=== PATIENT | male | born 1945 | race Caucasian/White ===

== ENCOUNTER 2016-12-19 05:27 | Inpatient (IN) | payer MEDICARE, OTHER ==
[2016-12-08 09:25] VITALS: BMI 39.0
--- NOTE | 2016-12-08 10:34 | PAT Medication Instructions ---
Service Date Dec 08, 2016. Current Home Medication List Albuterol Hfa (Ventolin Hfa), 1 PUFFS INH Q6H PRN for PRN Amlodipine (Norvasc), 5 MG PO QAM Aspirin (Aspirin *), 325 MG PO QAM Atorvastatin (Lipitor), 40 MG PO QPM Carvedilol (Coreg), 6.25 MG PO BID Fenofibrate (Tricor ), 145 MG PO QAM Fluticasone Propionate (Nasal) (Flonase Allergy Relief), 2 SPRAYS CRISTHIAN QAM Glipizide (Glipizide Er), 1 TAB PO QPM Lisinopril/Hctz (Zestoretic 20MG/25MG), 1 TAB PO QAM Metformin HCL (Glucophage *), 1,000 MG PO BID Pantoprazole (Protonix), 40 MG PO QAM Pseudoephedrine-Guaifenesin (Mucinex D), 1 TAB PO PRN Spironolactone (Aldactone), 25 MG PO QAM Tamsulosin Hcl (Flomax), 0.4 MG PO QAM [Azelestaline], 2 SPRAYS CRISTHIAN PRN Medication Instructions For Your Scheduled Surgery Aspirin (Aspirin *), 325 MG PO QAM (surgeon or Shauna from [facility] will call with final instructions) Fluticasone Propionate (Nasal) (Flonase Allergy Relief), 2 SPRAYS CRISTHIAN QAM ( check with surgeon's for office instructions) Azelestaline 2 SPRAYS CRISTHIAN PRN (check with surgeon's for office instructions) - Hold the following medications 48 hours prior to surgery: Metformin HCL (Glucophage *), 1,000 MG PO BID - Hold the following medications day prior to and morning of surgery: Fenofibrate (Tricor ), 145 MG PO QAM - Hold the following medications the morning of surgery: Spironolactone (Aldactone), 25 MG PO QAM Pseudoephedrine-Guaifenesin (Mucinex D), 1 TAB PO PRN Lisinopril/Hctz (Zestoretic 20MG/25MG), 1 TAB PO QAM - Take the following medications the morning of surgery with a sip of water: Tamsulosin Hcl (Flomax), 0.4 MG PO QAM Pantoprazole (Protonix), 40 MG PO QAM Carvedilol (Coreg), 6.25 MG PO BID Amlodipine (Norvasc), 5 MG PO QAM Albuterol Hfa (Ventolin Hfa), 1 PUFFS INH Q6H PRN for PRN (bring with you to hospital on day of surgery ) - Take the following medications as scheduled the night before surgery: Glipizide (Glipizide Er), 1 TAB PO QPM Carvedilol (Coreg), 6.25 MG PO BID Atorvastatin (Lipitor), 40 MG PO QPM Albuterol Hfa (Ventolin Hfa), 1 PUFFS INH Q6H PRN for PRN If you have any questions please call us at [phone] or [phone] ( Shauna) or [phone]
[2016-12-08 11:27] LABS: BASO % 0.6 %; BASO ABS # 0.06 K/uL (0-0.2); COMPLETE YES; EOS % 10.9 %; HEMATOCRIT 39.3 % (42-52); IG% 0.3 %; LYMPH % 22.6 %; LYMPH ABS # 2.16 K/uL (1.2-3.4); MEAN CELL VOLUME 89.3 fL (80-100); MEAN CORPUSCULAR HEMOGLOBIN 30.5 pg (25-34); MEAN CORPUSCULAR HGB CONC 34.1 g/dl (32-36); MEAN PLATELET VOLUME 10.6 fL (7.4-10.4); MONO % 6.7 %; NEUT % 58.9 %; PLATELET COUNT 170 K/uL (130-400); WHITE BLOOD COUNT 9.56 K/uL (4.8-10.8)
[2016-12-08 11:40] LABS: BUN/CREATININE RATIO 19.1 (10-20); CREATININE 1.1 mg/dl (0.60-1.40); POTASSIUM 4.6 mmol/L (3.5-5.1)
[~2016-12-19] VITALS: Ht 172.7 cm; Wt 117.2 kg
[2016-12-19] VITALS (14 sets, daily range): BP systolic 144–181; BP diastolic 78–102; PULSE 59–111; TEMP 36.4–36.8; O2SAT 94–98; Ht 172.7 cm; Wt 117.2 kg
[~2016-12-19 05:27] MED LIST: AMLO-110 PO; ASPEC325 PO; ATOR-24 PO; CARV6.25 PO; FENO145T26 PO; FLUT0.15 NAE; GLC500 PO; GLIP-199 PO; LISI-788 PO; PANT40TA PO; PSEU60TA80 PO; SPIR25TA PO; TAMS0.4C38 PO; VNTHFA/IN INH; [UNRECOGNIZED DRUG - OTHER] NAE
[2016-12-19] MEDS ORDERED: LACTATED RINGER'S 1000ML 1,000 ML IV SCH (06:00)
[2016-12-19] MEDS ORDERED: FENTANYL CITRATE INJ 50 MCG/1 ML 2 ML VIAL ONE ×2 (07:05→11:06)
[2016-12-19] MEDS ORDERED: MIDAZOLAM HCL 1 MG/ML 2ML VIAL ONE (07:05)
[2016-12-19] MEDS ORDERED: OXYMETAZOLINE HCL 0.05% NA SPR 15 ML BTL ONE ×2 (07:11→09:27)
[2016-12-19] MEDS ORDERED: LIDOCAINE/EPINEPHRINE 1% 20 ML VIAL ONE ×2 (07:11→08:34)
[2016-12-19] MEDS ORDERED: BACITRACIN 50000 UNIT VIAL ONE (07:12)
--- NOTE | 2016-12-19 07:29 | History & Physical Bridge Note ---
H&P Re-Evaluation Bridge Note: I have examined the patient, reviewed the History & Physical and in the interval since the performance of the History & Physical I have noted the following changes of clinical significance: No changes noted
[2016-12-19] MEDS ORDERED: SALINE NASAL GEL (AYR) 14.1 GM TUBE PRN (07:30)
[2016-12-19] MEDS ORDERED: CEFAZOLIN SOD 1 GM VIAL ONE (08:16)
[2016-12-19] MEDS ORDERED: LIDOCAINE HCL 2% 2 ML VIAL (20MG/ML) ONE (08:37)
[2016-12-19] MEDS ORDERED: ONDANSETRON INJ 2 MG/ML 2 ML VIAL ONE (08:37)
[2016-12-19] MEDS ORDERED: CISATRACURIUM BESYLATE IV SOLN 2 MG/ML 10 ML VIAL ONE (08:37)
[2016-12-19] MEDS ORDERED: GLYCOPYRROLATE INJ 0.2 MG/ML VIAL ONE (08:37)
[2016-12-19] MEDS ORDERED: PROPOFOL IV EMULSION 10 MG/ML 20 ML VIAL IV ONE (08:37)
[2016-12-19] MEDS ORDERED: LARYING-O-JET KIT (LTA) EXT ONE ×2 (08:37)
[2016-12-19] MEDS ORDERED: NEOSTIGMINE METHYLSULFATE 5 MG/5 ML SYR ONE (08:37)
[2016-12-19] MEDS ORDERED: DEXAMETHASONE SOD INJ 4 MG/ML VIAL ONE (08:37)
[2016-12-19] MEDS ORDERED: COCAINE 4% 1ML SYR EXT ONE (09:11)
[2016-12-19] MEDS ORDERED: LABETALOL HCL IV 5 MG/ML 20ML IV ONE (09:21)
[2016-12-19] MEDS: BACITRACIN OINT 15 GM TUBE ONE ×2 (09:53→10:21)
[2016-12-19] MEDS ORDERED: HydrALAZINE HCL 20 MG/ML VIAL ONE (10:39)
[2016-12-19] MEDS ORDERED: EpHEDrine SULFATE INJ 50 MG/ML AMP IV PRN (11:15)
[2016-12-19] MEDS ORDERED: LABETALOL HCL IV 5 MG/ML 20ML IV PRN (11:15)
[2016-12-19] MEDS ORDERED: ATROPINE SULFATE 0.1 MG/ML 5ML SYR IV PRN (11:15)
[2016-12-19] MEDS ORDERED: PROMETHAZINE HCL INJ 12.5 MG in SODIUM CHLORIDE 0.9% 50ML 50 ML IV PRN (11:15)
[2016-12-19] MEDS ORDERED: ONDANSETRON INJ 2 MG/ML 2 ML VIAL IV PRN ×2 (11:15→11:45)
[2016-12-19] MEDS ORDERED: FENTANYL CITRATE INJ 50 MCG/1 ML 2 ML VIAL IV PRN (11:15)
[2016-12-19] MEDS ORDERED: NALOXONE HCL 0.4 MG/1 ML VIAL/CARP IV PRN ×3 (11:15→16:15)
--- NOTE | 2016-12-19 11:23 | Anesthesiology Progress Note ---
Anesthesia Post Op Note Date & Time Dec 19, 2016 at 11:22 Vital Signs Pain Intensity: 4.0 Vital Signs Past 12 Hours Date Time Temp Pulse Resp B/P Pulse Ox O2 Delivery O2 Flow Rate FiO2 12/19/16 11:15 78 16 129/64 95 Free Flow/Blowby 15 12/19/16 11:05 80 16 131/70 95 Free Flow/Blowby 15 12/19/16 10:55 78 16 132/70 93 Free Flow/Blowby 15 12/19/16 10:45 75 16 138/72 93 Free Flow/Blowby 15 12/19/16 10:35 36.0 72 16 159/79 97 Mask 10 12/19/16 10:31 36.0 66 16 150/70 98 Mask 10 12/19/16 06:00 36.4 59 20 144/78 95 Room Air Notes Mental Status: alert / awake / arousable, participated in evaluation Pt Amnestic to Procedure: Yes Nausea / Vomiting: adequately controlled Pain: adequately controlled Airway Patency, RR, SpO2: stable & adequate BP & HR: stable & adequate Hydration State: stable & adequate Anesthetic Complications: no major complications apparent
[2016-12-19] MEDS ORDERED: GLUCAGON FOR INJ 1 MG VIAL SQ PRN (11:45)
[2016-12-19] MEDS ORDERED: MAGNESIUM HYDROXIDE SUSP 30 ML UDC PO PRN (11:45)
[2016-12-19] MEDS ORDERED: ACETAMINOPHEN 325 MG TAB PO PRN (11:45)
[2016-12-19] MEDS ORDERED: ZOLPIDEM TARTRATE 5 MG TAB PO PRN (11:45)
[2016-12-19] MEDS ORDERED: POLYETHYLENE (MIRALAX) 17 GM PACK PO PRN (11:45)
[2016-12-19] MEDS ORDERED: GLUCOSE 10 TABS/TUBE PO PRN (11:45)
[2016-12-19] MEDS ORDERED: ALBUTEROL HFA 8 GM INHALER INH PRN (11:45)
[2016-12-19] MEDS ORDERED: GLUCOSE 40% GEL 15 GM TUBE PO PRN (11:45)
[2016-12-19] MEDS ORDERED: CEFAZOLIN IV 2,000 MG/60 ML D5W IV SCH (11:45)
[2016-12-19] MEDS ORDERED: TRAMADOL HCL 50 MG TAB PO PRN (11:45)
[2016-12-19] MEDS ORDERED: DEXTROSE 50% 50 ML SYR IV PRN (11:45)
[2016-12-19] MEDS: HYDROmorphone INJ 1 MG/ML SYR IV PRN ×4 (12:00→12:15)
--- NOTE | 2016-12-19 12:49 | History and Physical ---
History & Physical Date & Time of Service: Dec 19, 2016 at 12:34 Chief Complaint: Chronic Pansinusitis; Deviated Nasal Septum Primary Care Physician: Julita Mittal DO History of Present Illness Source: hospital records This is a 71 year old M with PMH as mentioned below, was evaluated in the PACU post nasal and septoplasty with inferior turbinate reduction (bilateral), for admission request per Dr Huerta for post operative nasal bleeding. Patient had nasal bleeding post operatively- now under control with nasal packing by ENT. Vitals stable, BP 130s. Patient c/o pain at surgical site, rating it 7/10. Discomfort secondary to packing/post operative status. Denies any chest pain, fever, chills, nausea, vomiting, SOB. Will admit him under observation for close monitoring for post operative nasal bleeding. Past Medical/Surgical History PMH: 1. CAD with PCI Angioplasty RCA 2. DM-2 NIDDM 3. HTN 4. Hyperlipidemia 5. MAXIM 6. Hx of prostate carcinoma rx with brachytherapy 7. Kyphoscoliosis PSH: 1. Appendectomy 2. Cardiac cath 3. CAD- stent in proximal RCA 4. Multiple abdominal surgeries, lysis adhesions in 1970s 5. Knee arthroscopy 6. Shoulder cuff repair Social History Smoking Status: Former Smoker Allergies Coded Allergies: Clopidogrel (Verified Allergy, Intermediate, RASH, 12/19/16) Home Medications Scheduled Amlodipine (Norvasc), 5 MG PO QAM Aspirin (Aspirin *), 325 MG PO QAM Atorvastatin (Lipitor), 40 MG PO QPM Carvedilol (Coreg), 6.25 MG PO BID Fenofibrate (Tricor ), 145 MG PO QAM Fluticasone Propionate (Nasal) (Flonase Allergy Relief), 2 SPRAYS CRISTHIAN QAM Glipizide (Glipizide Er), 1 TAB PO QPM Lisinopril/Hctz (Zestoretic 20MG/25MG), 1 TAB PO QAM Metformin HCL (Glucophage *), 1,000 MG PO BID Pantoprazole (Protonix), 40 MG PO QAM Pseudoephedrine-Guaifenesin (Mucinex D), 1 TAB PO PRN Spironolactone (Aldactone), 25 MG PO QAM Tamsulosin Hcl (Flomax), 0.4 MG PO QAM [Azelestaline], 2 SPRAYS CRISTHIAN PRN Scheduled PRN Albuterol Hfa (Ventolin Hfa), 1 PUFFS INH Q6H PRN for PRN Review of Systems Constitutional: No chills, No fever Eyes: No worsening of vision ENT: + nasal symptoms (post operative nasal bleeding with packing), No hearing loss Respiratory: No cough, No shortness of breath, No sputum, No wheezing Cardiovascular: No chest pain, No palpitations Abdomen: No diarrhea, No nausea, No pain, No vomiting Genitourinary - Male: No hematuria Endocrine: + fatigue Integumentary: No rash Physical Exam Vital Signs Date Time Temp Pulse Resp B/P Pulse Ox O2 Delivery O2 Flow Rate FiO2 12/19/16 12:15 89 18 144/73 95 Free Flow/Blowby 15 12/19/16 12:05 86 18 127/82 95 Free Flow/Blowby 15 12/19/16 11:55 36.5 83 18 131/66 93 Free Flow/Blowby 15 12/19/16 11:45 86 20 129/75 93 Free Flow/Blowby 15 12/19/16 11:30 83 18 129/68 93 Free Flow/Blowby 15 12/19/16 11:15 78 16 129/64 95 Free Flow/Blowby 15 12/19/16 11:05 80 16 131/70 95 Free Flow/Blowby 15 12/19/16 10:55 78 16 132/70 93 Free Flow/Blowby 15 12/19/16 10:45 75 16 138/72 93 Free Flow/Blowby 15 12/19/16 10:35 36.0 72 16 159/79 97 Mask 10 12/19/16 10:31 36.0 66 16 150/70 98 Mask 10 12/19/16 06:00 36.4 59 20 144/78 95 Room Air General Appearance: + mild distress (secondary to nasal packing) Head: normocephalic, atraumatic Eyes: PERRL ENT: + pertinent finding (Nasal packing +, Bleeding ) Neck: supple Respiratory/Chest: chest non-tender, no respiratory distress, no accessory muscle use, + decreased breath sounds Cardiovascular: regular rate, rhythm, no murmur Abdomen/GI: non tender, soft Extremities/Musculoskelatal: no pedal edema Neurologic/Psych: + pertinent finding (grossly no focal deficits. Awake, oriented x 3) Diagnostics Laboratory Results Results Past 24 Hours Test 12/19/16 05:48 12/19/16 10:49 Range/Units Bedside Glucose 138 190 70-99 mg/dl Impression Assessment and Plan POST OPERATIVE NASAL BLEEDING S/P Nasal/Septoplasty/Bilateral inferior turbinate reduction by Dr Huerta today on 12/19/16. Had nasal bleeding post operatively - controlled now- nasal packing + -IV fluids (On spironolactone- held) -IV Cefazolin 2 gram q [address] Huerta -Pain mx- IV Dilaudid 1 mg q 3 hours prn for severe pain, Percocet 5/325 mg q 4 hours prn for moderate pain -Face tent per ENT instructions -CBC, BMP ordered- Monitor H & H -ENT on board HYPOXIA Post operative hypoxia with nasal bleeding/packing in setting of known MAXIM/ Kyphoscoliosis/Obesity -Monitor HYPERTENSION Stable. -Continue with home medications- Norvasc 5 mg daily, Carvedilol 6.25 mg BID, Lisinopril/HCTZ 20/25 mg daily -Monitor DM-2; NIDDM -Accuchecks, ISS -Hold oral meds HX OF CAD- WITH STENT -On ASA 325 mg at home which was on hold x 1 week prior to surgery- continue to hold due to surgery/bleeding -Continue with Atorvastatin 40 mg, Coreg 6.25 mg bid, Lisinopril 20 mg daily, Spironolactone - held as on IVF -No cardiac symptoms- stable OBESITY DVT PROPHYLAXIS SCDS/TEDS re: nasal bleeding DISPOSITION Observation status Expected discharge home when stable /per ENT Level of Care Med/Surg Resuscitation Status FULL RESUSCITATION VTE Prophylaxis VTE Risk Assessment Done? Y/N: Yes Risk Level: Low Given or contraindicated: T.E.D. Stockings, SCD's, Contraindicated (re: nasal bleeding.)
[2016-12-19] MEDS ORDERED: SODIUM CHLORIDE 0.9% 1000ML 1,000 ML IV SCH (13:00)
[2016-12-19] MEDS ORDERED: HYDROmorphone INJ 1 MG/ML SYR IV PRN (13:00)
[2016-12-19] MEDS ORDERED: IV FLUIDS COMPLETED PRN (14:00)
[2016-12-19] MEDS ORDERED: NURSING VERBAL MED ORDER ONE (14:45)
[2016-12-19] MEDS ORDERED: HydrALAZINE HCL 20 MG/ML VIAL IV. SCH (14:50)
--- NOTE | 2016-12-19 15:22 | Progress Note ---
Subjective Date of Service: Dec 19, 2016. Problem List Called to see patient for evaluation of nasal bleeding s/p nasal and sinus surgery. Patient had elevated BP at the time of the call and was in pain. By the time of my arrival, both were attended to. I interviewed the patient who reported decreased pain with Dilaudid. I also spoke with his nursing coming on and the departing nurse, his , and his son. Objective Vital Signs Date Time Temp Pulse Resp B/P Pulse Ox O2 Delivery O2 Flow Rate FiO2 12/19/16 14:20 101 24 174/94 96 Tent 11.0 12/19/16 13:50 98 24 169/91 95 Tent 11.0 12/19/16 13:00 96 18 142/77 93 Mask 10 12/19/16 12:45 91 18 141/77 96 Free Flow/Blowby 15 12/19/16 12:30 92 18 138/73 95 Free Flow/Blowby 15 12/19/16 12:15 89 18 144/73 95 Free Flow/Blowby 15 12/19/16 12:05 86 18 127/82 95 Free Flow/Blowby 15 12/19/16 11:55 36.5 83 18 131/66 93 Free Flow/Blowby 15 12/19/16 11:45 86 20 129/75 93 Free Flow/Blowby 15 12/19/16 11:30 83 18 129/68 93 Free Flow/Blowby 15 12/19/16 11:15 78 16 129/64 95 Free Flow/Blowby 15 12/19/16 11:05 80 16 131/70 95 Free Flow/Blowby 15 12/19/16 10:55 78 16 132/70 93 Free Flow/Blowby 15 12/19/16 10:45 75 16 138/72 93 Free Flow/Blowby 15 12/19/16 10:35 36.0 72 16 159/79 97 Mask 10 12/19/16 10:31 36.0 66 16 150/70 98 Mask 10 12/19/16 06:00 36.4 59 20 144/78 95 Room Air I cleaned his face and changed his mustache dressing. There was minimal to no bleeding. Laboratory Results Last 24 Hours Test 12/19/16 05:48 12/19/16 10:49 12/19/16 14:20 Bedside Glucose 138 mg/dl 190 mg/dl 174 mg/dl Assessment and Plan Patient stable. I spoke with the hospitalist, Dr. Sylvia Suarez, and provided her with my cell phone number. I also shared the importance of establishing RN PATIENT CARE to control discomfort which will be directly related to his BP. She shared that she would be happy to attend to this matter. I will be in early tomorrow morning to see this patient.
[2016-12-19] MEDS ORDERED: AMLODIPINE BESYLATE 5 MG TAB PO ONE ×2 (16:00→17:15)
--- NOTE | 2016-12-19 16:03 | OPERATIVE REPORT ---
DATE OF OPERATION: 12/19/2016 OPERATION PERFORMED: 1. Nasal and sinus surgical endoscopy using Fusion image guidance, resulting in: a. Bilateral anterior ethmoidectomy. b. Bilateral maxillary sinusotomy. 2. Septoplasty. 3. Bilateral inferior turbinate reduction. PREOPERATIVE DIAGNOSES: 1. Chronic sinusitis. 2. Severely deviated septum to the left side. 3. Bilateral inferior turbinate hypertrophy. POSTOPERATIVE DIAGNOSES: 1. Chronic sinusitis. 2. Bilateral inferior turbinate hypertrophy. 3. Severely deviated septum to the left side. SUMMARY OF FINDINGS: 1. Their is a concern that the patient didn't stop taking aspirin 325 mg once a day a week ago. For SURE, he oozed throughout the entire case. 2. Severely deviated septum to the left side. 3. Edematous ethmoid mucosa. 4. Bilateral inferior turbinate hypertrophy. SPECIMEN SENT: Mucosa from both ethmoid sinuses was sent for pathology. BLOOD LOSS: 250 mL. IV FLUIDS: 1000 of crystalloid. INDICATIONS FOR THE PROCEDURE: This is a 71-year-old man who had chronic sinusitis despite maximum medical management for several years. Given his smoking history, diabetes, history of cardiac stent, it was decided it would be best to perform his procedure in the hospital setting rather than a surgery center setting. A full informed consent including the indications, risks, benefits, and alternatives was provided in a relaxed office setting. There was an opportunity for questions and answers. Sponge and needle count was correct at the end of the case. COMPLICATIONS: None, OTHER THAN THE DIFFICULTY OF PERFORMING SURGERY IN A BLOODY FIELD PACKING: Left ethmoid defect had Nasopore placed and a 7.5 cm Rapid Rhino soaked in bacitracin solution and 2 Rhino Rockets were placed in the left side of the nose to stop bleeding. The right side of the nose had Stammberger gel placed in the ethmoid defect with a 7.5 cm Rapid Rhino and a Rhino Rocket placed in the right side of the nose. DESCRIPTION OF PROCEDURE: The patient had an uneventful endotracheal intubation and was placed in reverse Trendelenburg. The septum, inferior turbinates, middle turbinates, and anterior ethmoidal bulla were injected with 26 mL of 1% lidocaine in 1:100,000 parts epinephrine. The nose was then packed with 4 neurosurgical pledgets soaked in 4% cocaine and another 4 neurosurgical pledgets soaked in 0.05% oxymetazoline. About 5-7 minutes was then allowed for vasoconstriction as the patient was draped in a standard fashion and the equipment was ready. After waiting about 5-7 minutes, the packing in the nose was removed. A Warrington incision was made on the left side of the nose and a mucoperichondrial flap was elevated. +++++ IT IS IMPORTANT TO NOTE, THAT IMMEDIATELY FOLLOWING INCISION THERE WAS OOZING ON THE MUCOPERICHONDRIAL SIDE OF THE FLAP. THIS IS VERY UNUSUAL. The Quadrangular cartilage was disarticulated from the perpendicular plate of the ethmoid and the vomer. Additionally, a #15 blade was used to make an incision at the junction of the quadrangular cartilage with the maxillary crest. A small strip of cartilage attached to the maxillary crest was removed. After relaxing incisions were made in the quadrangular cartilage, it was now free to swing to the midline from its previously leftward deviation. There was a bony spur from the vomer, sticking in the left nasal airway, and this was infractured with a septal mobilizer. The septum was now straight. The Joaquin incision was closed with running 4-0 chromic suture. Eveline bivalve splints were placed, one on each side of the septum and held in place with a transseptal 2-0 silk suture. With the septoplasty complete, attention was then directed to the inferior turbinates. The lateral mucosa and bone was removed with the 4.3 mm Medtronic microdebrider. Lateral surface mucosa was also reduced in size using suction electrocautery. There was no Arthrocare Coblation device available, so I did not perform Arthrocare Coblation reduction. I just removed bone and subcutaneous tissue laterally. There was a nice reduction in the inferior turbinate size bilaterally. The remainder of the procedure was done interchangeably using a 30-degree endoscope along with surgical loops and headlight. The anterior portion of each middle turbinate was grasped with a curved tonsillar hemostat and compressed. Then turbinate scissors were used to cut on the crush line. Bleeding at the cut margin of the middle turbinate was stopped with suction electrocautery. The anterior ethmoidal bulla was entered with a straight suction tip and then anterior ethmoidectomy was done using the Medtronic 4.3 straight microdebrider. The represented mucosa was sent to pathology from the right and left ethmoidal sinus. Suction cautery was used to stop bleeding. The maxillary sinusotomies were created using curved suction tip to enter the maxillary sinus and also backbiting forceps to open the sinusotomy site. After controlling bleeding with suction electrocautery, the ethmoid defect on the left was packed with Nasopore; on the right with Stammberger foam. The left side of the nose had 2 Rhino Rockets saturated in bacitracin solution along with a 7.5 cm Rapid Rhino placed in the left side of the nose. In the right side of the nose, there was a 7.5 cm Rapid Rhino soaked in bacitracin solution along with a Rhino Rocket. This stopped all bleeding. Mustache dressing was positioned. I removed the vaginal pack soaked in saline that had been placed in the oropharynx at the start of the case to prevent blood going from the nose down to the stomach. I suctioned away all blood using saline and a Yankauer suction. I made sure there was no blood coming from the nose down to the oropharynx. Oral airway was placed. The patient was allowed to wake up on his own and following extubation, was transported to recovery in no apparent distress. I decided that given his diabetes, cardiac disease, long history of smoking, and oozing during surgery as well as labile hypertension in recovery, that it would be best to keep the patient overnight for several reasons. The reasons are: 1. Control of pain. 2. Control of his blood pressure. 3. Control of blood sugar. I think this is the safest move for this patient, and I will interface with the [facility].. I attest to the content of the Intraoperative Record and any orders documented therein. Any exceptions are noted below. JAIRO
[2016-12-19] MEDS: CEFAZOLIN SOD 2000 MG in DEXTROSE 5% 50ML IV SCH (16:08)
[2016-12-19 16:23] LABS: HEMATOCRIT 39.6 % (42-52); MEAN CELL VOLUME 89.8 fL (80-100); MEAN CORPUSCULAR HEMOGLOBIN 29.7 pg (25-34); MEAN CORPUSCULAR HGB CONC 33.1 g/dl (32-36); MEAN PLATELET VOLUME 10.2 fL (7.4-10.4); PLATELET COUNT 163 K/uL (130-400); RED BLOOD COUNT 4.41 M/uL (4.7-6.1); WHITE BLOOD COUNT 10.64 K/uL (4.8-10.8)
[2016-12-19 16:25] LABS: BUN/CREATININE RATIO 16.7 (10-20); CALCIUM 8.4 mg/dl (8.5-10.1); CREATININE 0.94 mg/dl (0.60-1.40); POTASSIUM 4.3 mmol/L (3.5-5.1)
[2016-12-19] MEDS: HYDROmorphone HCL 0.5MG/ML 50 ML CASSETTE IV PRN (16:49)
[2016-12-19] MEDS: SODIUM CHLORIDE 0.9% 1000ML 1,000 ML IV SCH (16:52)
[2016-12-19] MEDS: CARVEDILOL 6.25 MG TAB PO SCH (18:22)
[2016-12-19] MEDS: INSULIN ASPART 100 UNITS/ML 3 ML PEN SC SCH ×2 (18:26→21:58)
[2016-12-19] MEDS ORDERED: LABETALOL HCL IV 5 MG/ML 20ML IV SCH (19:45)
[2016-12-19] MEDS: ATORVASTATIN 40 MG TAB PO SCH (20:40)
--- NOTE | 2016-12-19 21:25 | Progress Note ---
Progress Note Date of Service Dec 19, 2016. Progress Note Patients' BP has been very difficult to control. His pain has been well controlled since starting IV Dialudid pump, however, difficult to control his BP. Has got IV Hydralazine 10 mg, IV Labetalol 10 mg, Norvasc 5 mg, Coreg 6.25 mg to achieve control Still has high BP---> Will start him on round the clock IV Metoprolol 5 mg q 6 hours till BP comes under control. Have given the sign out to night physician, Dr Flanagan. Goal < 140s
[2016-12-19] MEDS ORDERED: METOPROLOL TARTRATE 1 MG/ML VIAL IV. SCH (23:30)
[2016-12-20] VITALS (11 sets, daily range): BP systolic 153–174; BP diastolic 78–98; PULSE 83–111; TEMP 36.7–37.1; O2SAT 88–99
[2016-12-20] MEDS: CEFAZOLIN SOD 2000 MG in DEXTROSE 5% 50ML IV SCH ×2 (00:18→07:59)
[2016-12-20] MEDS: METOPROLOL TARTRATE 1 MG/ML VIAL IV. SCH ×3 (00:18→13:06)
[2016-12-20] MEDS: HydrALAZINE HCL 20 MG/ML VIAL IV. PRN (04:23)
[2016-12-20] MEDS: INSULIN ASPART 100 UNITS/ML 3 ML PEN SC SCH ×4 (07:00→20:53)
[2016-12-20 07:37] LABS: HEMATOCRIT 38.6 % (42-52); MEAN CELL VOLUME 91.5 fL (80-100); MEAN CORPUSCULAR HEMOGLOBIN 29.4 pg (25-34); MEAN CORPUSCULAR HGB CONC 32.1 g/dl (32-36); PLATELET COUNT 204 K/uL (130-400); RED BLOOD COUNT 4.22 M/uL (4.7-6.1); WHITE BLOOD COUNT 14.51 K/uL (4.8-10.8)
[2016-12-20] MEDS: PANTOprazole SOD 40 MG TAB PO SCH (07:45)
[2016-12-20] MEDS: AMLODIPINE BESYLATE 5 MG TAB PO SCH (07:45)
[2016-12-20] MEDS: TAMSULOSIN HCL 0.4 MG CAP PO SCH (07:46)
[2016-12-20] MEDS: LISINOPRIL/HCTZ 20/25MG TAB PO SCH (07:46)
[2016-12-20] MEDS: CARVEDILOL 6.25 MG TAB PO SCH ×2 (07:46→20:54)
[2016-12-20] MEDS: FENOFIBRATE 145 MG TAB PO SCH (07:46)
--- NOTE | 2016-12-20 07:47 | Progress Note ---
Subjective Date of Service: Dec 20, 2016. Problem List I spoke with Dr. Maite Suarez, and she shared that he was transferred to Telemetry last night to facilitate control of his labile hypertension. I saw the patient in room 242. I shared that this is a miserable experience, but that his pain is being controlled with the PULMONOLOGY TECHNICIAN. Objective Vital Signs Date Time Temp Pulse Resp B/P Pulse Ox O2 Delivery O2 Flow Rate FiO2 12/20/16 06:29 102 165/102 12/20/16 04:04 37.0 96 21 174/98 99 Tent 12/20/16 00:18 111 167/97 12/20/16 00:07 37.1 111 20 167/97 97 Tent 12/19/16 23:07 101 161/90 12/19/16 21:59 103 167/90 12/19/16 21:10 101 169/97 12/19/16 19:50 36.8 109 20 167/101 95 Tent 11.0 12/19/16 19:48 36.7 111 22 97 11.0 12/19/16 19:04 111 22 181/94 97 Tent 11.0 12/19/16 18:08 111 20 177/94 98 Tent 11.0 12/19/16 17:16 110 22 175/98 98 Tent 11.0 12/19/16 16:13 102 18 174/97 95 Oxyhood 11.0 12/19/16 16:00 94 Tent 11.0 12/19/16 15:20 36.7 106 20 167/102 97 Tent 11.0 12/19/16 14:20 101 24 174/94 96 Tent 11.0 12/19/16 13:50 98 24 169/91 95 Tent 11.0 12/19/16 13:20 36.6 101 20 164/ 96 Tent 11.0 12/19/16 13:20 Tent 12/19/16 13:20 96 Tent 11.0 12/19/16 13:00 96 18 142/77 93 Mask 10 12/19/16 12:45 91 18 141/77 96 Free Flow/Blowby 15 12/19/16 12:30 92 18 138/73 95 Free Flow/Blowby 15 12/19/16 12:15 89 18 144/73 95 Free Flow/Blowby 15 12/19/16 12:05 86 18 127/82 95 Free Flow/Blowby 15 12/19/16 11:55 36.5 83 18 131/66 93 Free Flow/Blowby 15 12/19/16 11:45 86 20 129/75 93 Free Flow/Blowby 15 12/19/16 11:30 83 18 129/68 93 Free Flow/Blowby 15 12/19/16 11:15 78 16 129/64 95 Free Flow/Blowby 15 12/19/16 11:05 80 16 131/70 95 Free Flow/Blowby 15 12/19/16 10:55 78 16 132/70 93 Free Flow/Blowby 15 12/19/16 10:45 75 16 138/72 93 Free Flow/Blowby 15 12/19/16 10:35 36.0 72 16 159/79 97 Mask 10 12/19/16 10:31 36.0 66 16 150/70 98 Mask 10 His BP remains above the 140/90 level safe for removal of his nasal packing. He had minimal oozing from his nares, but this was an acceptable amount. Laboratory Results Last 24 Hours Test 12/19/16 10:49 12/19/16 14:20 12/19/16 15:52 12/19/16 17:10 Bedside Glucose 190 mg/dl 174 mg/dl 191 mg/dl White Blood Count 10.64 K/uL Red Blood Count 4.41 M/uL Hemoglobin 13.1 g/dL Hematocrit 39.6 % Mean Corpuscular Volume 89.8 fL Mean Corpuscular Hemoglobin 29.7 pg Mean Corpuscular Hemoglobin Concent 33.1 g/dl RDW Standard Deviation 45.4 fL RDW Coefficient of Variation 13.8 % Platelet Count 163 K/uL Mean Platelet Volume 10.2 fL Sodium Level 141 mmol/L Potassium Level 4.3 mmol/L Chloride Level 105 mmol/L Carbon Dioxide Level 30 mmol/L Anion Gap 6.0 mmol/L Blood Urea Nitrogen 16 mg/dl Creatinine 0.94 mg/dl Est Creatinine Clear Calc Drug Dose 90.9 ml/min Estimated GFR () 94.8 Estimated GFR (Non- 81.8 BUN/Creatinine Ratio 16.7 Random Glucose 194 mg/dl Calcium Level 8.4 mg/dl Hepatitis C Antibody Screen NEG Test 12/19/16 20:34 4/26/17 07:05 12/20/16 07:35 Bedside Glucose 162 mg/dl White Blood Count 14.51 K/uL Red Blood Count 4.22 M/uL Hemoglobin 12.4 g/dL Hematocrit 38.6 % Mean Corpuscular Volume 91.5 fL Mean Corpuscular Hemoglobin 29.4 pg Mean Corpuscular Hemoglobin Concent 32.1 g/dl RDW Standard Deviation 45.9 fL RDW Coefficient of Variation 14.0 % Platelet Count 204 K/uL Mean Platelet Volume 10.0 fL Assessment and Plan This patient continues to have labile hypertension despite aggressive and appropriate intervention. He will most likely need to remain as an impatient until I remove his nasal packing early on Sunday morning, 12/22/18.
[2016-12-20 08:14] LABS: BUN/CREATININE RATIO 19.7 (10-20); CREATININE 1.1 mg/dl (0.60-1.40); POTASSIUM 4.3 mmol/L (3.5-5.1)
[2016-12-20 08:27] LABS: CALCIUM 8.1 mg/dl (8.5-10.1)
[2016-12-20] MEDS ORDERED: AMLODIPINE BESYLATE 5 MG TAB PO SCH (09:00)
[2016-12-20] MEDS ORDERED: SPIRONOLACTONE 25 MG TAB PO SCH (09:00)
--- NOTE | 2016-12-20 11:00 | Anesthesiology Progress Note ---
Anesthesia Post Op Note Date & Time Dec 20, 2016 at 10:58 Vital Signs Pain Intensity: 2.0 Vital Signs Past 12 Hours Date Time Temp Pulse Resp B/P Pulse Ox O2 Delivery O2 Flow Rate FiO2 12/20/16 08:10 36.9 89 20 154/91 91 Mask 10.0 12/20/16 08:00 Humidified Air Tent 12/20/16 06:29 102 165/102 12/20/16 04:04 37.0 96 21 174/98 99 Tent 12/20/16 00:18 111 167/97 12/20/16 00:07 37.1 111 20 167/97 97 Tent 12/19/16 23:07 101 161/90 Notes Mental Status: alert / awake / arousable, participated in evaluation Pt Amnestic to Procedure: Yes Nausea / Vomiting: adequately controlled Pain: adequately controlled Airway Patency, RR, SpO2: stable & adequate BP & HR: stable & adequate Hydration State: stable & adequate Anesthetic Complications: no major complications apparent
[2016-12-20] MEDS: MAGNESIUM SULFATE 1GM / D5W 1 GM in PREMIXED IN D5W 100 ML IV SCH ×4 (11:05→16:03)
[2016-12-20] MEDS ORDERED: NURSING VERBAL MED ORDER ONE (12:15)
[2016-12-20] MEDS ORDERED: ALBUT/IPRATROP 3MG/0.5MG NEB 3 ML VIAL INH PRN (12:30)
--- NOTE | 2016-12-20 14:11 | Progress Note ---
Medicine Progress Note Date & Time of Visit: Dec 20, 2016 at 13:52. Subjective Pt was seen and examined Lying in bed with no acute respiratory distress denies any chest pain, palpitation, dizziness and sob has not been eating anything today because he feels nauseated. he said that it is hard to breath through the mouth Objective Last 8 Hrs Date Time Temp Pulse Resp B/P Pulse Ox O2 Delivery O2 Flow Rate FiO2 12/20/16 13:06 89 12/20/16 12:05 Humidified Air Tent 12/20/16 11:55 89 159/86 12/20/16 11:17 36.7 89 20 161/82 90 Room Air 12/20/16 08:10 36.9 89 20 154/91 91 Mask 10.0 12/20/16 08:00 Humidified Air Tent 12/20/16 06:29 102 165/102 Physical Exam: General- No acute distress Head- atraumatic Eyes- PERRL, EOMI ENT- +nasal packing and blood Neck- supple, no JVD Lungs- Poor air entry Heart- regular rhythm; no murmur Abdomen- normal bowel sounds, soft Extremities-no calf tenderness Neuro- alert, oriented x 3; PERRL, EOMI Skin- warm & dry Laboratory Results: Last 24 Hours Test 12/19/16 14:20 12/19/16 15:52 12/19/16 17:10 12/19/16 20:34 Bedside Glucose 174 mg/dl 191 mg/dl 162 mg/dl White Blood Count 10.64 K/uL Red Blood Count 4.41 M/uL Hemoglobin 13.1 g/dL Hematocrit 39.6 % Mean Corpuscular Volume 89.8 fL Mean Corpuscular Hemoglobin 29.7 pg Mean Corpuscular Hemoglobin Concent 33.1 g/dl RDW Standard Deviation 45.4 fL RDW Coefficient of Variation 13.8 % Platelet Count 163 K/uL Mean Platelet Volume 10.2 fL Sodium Level 141 mmol/L Potassium Level 4.3 mmol/L Chloride Level 105 mmol/L Carbon Dioxide Level 30 mmol/L Anion Gap 6.0 mmol/L Blood Urea Nitrogen 16 mg/dl Creatinine 0.94 mg/dl Est Creatinine Clear Calc Drug Dose 90.9 ml/min Estimated GFR () 94.8 Estimated GFR (Non- 81.8 BUN/Creatinine Ratio 16.7 Random Glucose 194 mg/dl Calcium Level 8.4 mg/dl Hepatitis C Antibody Screen NEG Test 12/20/16 07:05 12/20/16 07:58 12/20/16 12:26 White Blood Count 14.51 K/uL Red Blood Count 4.22 M/uL Hemoglobin 12.4 g/dL Hematocrit 38.6 % Mean Corpuscular Volume 91.5 fL Mean Corpuscular Hemoglobin 29.4 pg Mean Corpuscular Hemoglobin Concent 32.1 g/dl RDW Standard Deviation 45.9 fL RDW Coefficient of Variation 14.0 % Platelet Count 204 K/uL Mean Platelet Volume 10.0 fL Sodium Level 141 mmol/L Potassium Level 4.3 mmol/L Chloride Level 104 mmol/L Carbon Dioxide Level 27 mmol/L Anion Gap 10.0 mmol/L Blood Urea Nitrogen 22 mg/dl Creatinine 1.10 mg/dl Est Creatinine Clear Calc Drug Dose 77.7 ml/min Estimated GFR () 78.4 Estimated GFR (Non- 67.7 BUN/Creatinine Ratio 19.7 Random Glucose 168 mg/dl Calcium Level 8.1 mg/dl Magnesium Level 1.2 mg/dl Prothrombin Time 11.0 SECONDS Prothromb Time International Ratio 1.0 Bedside Glucose 173 mg/dl Assessment & Plan POST OPERATIVE NASAL BLEEDING S/P Nasal/Septoplasty/Bilateral inferior turbinate reduction by Dr Huerta today on 12/19/16. Had nasal bleeding post operatively -IV Cefazolin 2 gram q 8 hours -Pain mx- IV Dilaudid 1 mg q 3 hours prn for severe pain, Percocet 5/325 mg q 4 hours prn for moderate pain -Face tent per ENT instructions -Hgb stable -Case discussed with Dr. Huerta that recommended to continue the nasal packing, -Dr. Huerta will possible removed the nasal packing on Sunday morning -Continue monitor h/h HYPOXIA Post operative hypoxia with nasal bleeding/packing in setting of known MAXIM/ Kyphoscoliosis/Obesity -Monitor HYPERTENSION -Might be related to discomfort from the nasal packing -Norvasc increased to 10mg daily, -Continue Carvedilol 6.25 mg BID, Lisinopril/HCTZ 20/25 mg daily -Monitor BP in telemetry HYPOMAGNESEMIA mg replaced continue monitor PVCs Seen on tele monitor mostly related to low mg (mg 1.2) Mg replaced Continue monitor in telemetry DM-2; NIDDM -Accuchecks, ISS -Hold oral meds HX OF CAD- WITH STENT -Continue holding asa 325 mg for now due to the bleeding -Continue with Atorvastatin 40 mg, Coreg 6.25 mg bid, Lisinopril 20 mg daily, Spironolactone - held as on IVF -Asymptomatic DVT PROPHYLAXIS SCDS/TEDS re: nasal bleeding DISPOSITION Expected discharge home when stable per ENT Consultants: ENT Procedures: S/P Nasal/Septoplasty/Bilateral inferior turbinate reduction Current Inpatient Medications: Current Inpatient Medications Medications (Trade) Dose Ordered Sig/Silvia Route Start Time Stop Time Status Last Admin Dose Admin Albuterol (Ventolin Hfa Inhaler) 1 puffs Q6H PRN INH 12/19/16 11:45 01/18/17 11:44 Atorvastatin Calcium (Lipitor Tab) 40 mg QPM PO 12/19/16 21:00 01/18/17 20:59 12/19/16 20:40 40 MG Carvedilol (Coreg Tab) 6.25 mg BID PO 12/19/16 21:00 01/18/17 20:59 12/20/16 07:46 6.25 MG Fenofibrate (Tricor Tab) 145 mg QAM PO 12/20/16 09:00 01/19/17 08:59 12/20/16 07:46 145 MG HCTZ/Lisinopril (Prinzide 20-25MG Tab) 1 tab QAM PO 12/20/16 09:00 01/19/17 08:59 12/20/16 07:46 1 TAB Pantoprazole Sodium (Protonix Tab) 40 mg QAM PO 12/20/16 09:00 01/19/17 08:59 12/20/16 07:45 40 MG Tamsulosin HCl (Flomax Cap) 0.4 mg QAM PO 12/20/16 09:00 01/19/17 08:59 12/20/16 07:46 0.4 MG Insulin Aspart (novoLOG ASPART) SLIDING SCALE If C... ACHS SC 12/19/16 16:00 01/18/17 15:59 12/19/16 21:58 1 UNITS Glucose (Glucose 40% Gel) 15-30 GRAMS 15 GRAMS... UD PRN PO 12/19/16 11:45 01/18/17 11:44 Glucose (Glucose Chew Tab) 4-8 Tablets 4 Tabl... UD PRN PO 12/19/16 11:45 01/18/17 11:44 Dextrose (Dextrose 50% 50ML Syringe) 25-50ML OF 50% DW IV FOR... UD PRN IV 12/19/16 11:45 01/18/17 11:44 Glucagon (Glucagon Inj) 1 mg UD PRN SQ 12/19/16 11:45 01/18/17 11:44 Acetaminophen (Tylenol Tab) 650 mg Q4H PRN PO 12/19/16 11:45 01/18/17 11:44 Magnesium Hydroxide (Milk Of Magnesia Susp) 30 ml Q6H PRN PO 12/19/16 11:45 01/18/17 11:44 Polyethylene (Miralax Powder Packet) 17 gm DAILY PRN PO 12/19/16 11:45 01/18/17 11:44 Ondansetron HCl (Zofran Inj) 4 mg Q6H PRN IV 12/19/16 11:45 01/18/17 11:44 Zolpidem Tartrate (Ambien Tab) 5 mg HSZ PRN PO 12/19/16 11:45 01/18/17 11:44 Tramadol HCl (Ultram Tab) 50 mg Q4H PRN PO 12/19/16 11:45 01/18/17 11:44 Oxycodone/ Acetaminophen (Percocet 5-325mg Tab) 1 tab Q4H PRN PO 12/19/16 13:00 01/02/17 12:59 Miscellaneous (Iv Fluids Completed) 1 ea PRN PRN N/A 12/19/16 14:00 12/19/17 13:59 Hydralazine HCl 10 mg 10 mg Q8H PRN IV. 12/19/16 14:15 01/18/17 14:14 12/20/16 04:23 10 MG Cefazolin Sodium/ Dextrose (Ancef Iv/D5 50ml) 60 ml @ 120 mls/hr Q8H IV 12/19/16 16:00 12/20/16 15:59 12/20/16 07:59 120 MLS/HR Amlodipine Besylate (Norvasc Tab) 10 mg QAM PO 12/20/16 09:00 01/19/17 08:59 12/20/16 07:45 10 MG Naloxone HCl (Narcan Inj) 0.1 mg Q5M PRN IV 12/19/16 16:15 01/18/17 16:14 Hydromorphone HCl 25 mg 25 mg PRN PRN IV 12/19/16 16:15 01/02/17 16:14 Future hold 12/19/16 16:49 25 MG Sodium Chloride (Nss 1000ml) 1,000 ml @ 15 mls/hr Q24H IV 12/19/16 16:07 01/18/17 16:06 Metoprolol Tartrate 5 mg 5 mg Q6 IV. 12/20/16 00:00 12/20/16 23:30 12/20/16 13:06 5 MG Magnesium Sulfate/ Prmx (Magnesium Sulfate/Premixed D5W) 100 ml @ 100 mls/hr 1100,1200,1300,1400 IV 12/20/16 11:00 12/20/16 14:59 12/20/16 13:04 100 MLS/HR Albuterol/ Ipratropium (Duoneb) 3 ml Q4H PRN INH 12/20/16 12:30 01/19/17 12:29
[2016-12-20] MEDS: SODIUM CHLORIDE 0.9% 1000ML 1,000 ML IV SCH (16:07)
[2016-12-20] MEDS: ATORVASTATIN 40 MG TAB PO SCH (21:17)
[2016-12-21] VITALS (11 sets, daily range): BP systolic 155–177; BP diastolic 75–93; PULSE 63–91; TEMP 36.6–37.1; O2SAT 90–93
[2016-12-21] MEDS: METOPROLOL TARTRATE 1 MG/ML VIAL IV PRN ×3 (00:37→19:28)
[2016-12-21] MEDS: HydrALAZINE HCL 20 MG/ML VIAL IV. PRN ×2 (02:35→21:54)
[2016-12-21] MEDS ORDERED: METOPROLOL TARTRATE 1 MG/ML VIAL IV ONE (04:00)
[2016-12-21 07:06] LABS: HEMATOCRIT 35.6 % (42-52); MEAN CELL VOLUME 91.8 fL (80-100); MEAN CORPUSCULAR HEMOGLOBIN 29.9 pg (25-34); MEAN CORPUSCULAR HGB CONC 32.6 g/dl (32-36); PLATELET COUNT 152 K/uL (130-400); RED BLOOD COUNT 3.88 M/uL (4.7-6.1); WHITE BLOOD COUNT 12.09 K/uL (4.8-10.8)
[2016-12-21 07:42] LABS: BUN/CREATININE RATIO 23.3 (10-20); CALCIUM 8.6 mg/dl (8.5-10.1); CREATININE 0.9 mg/dl (0.60-1.40); MAGNESIUM 2.1 mg/dl (1.8-2.4); POTASSIUM 4.3 mmol/L (3.5-5.1)
--- NOTE | 2016-12-21 08:46 | Progress Note ---
Subjective Date of Service: Dec 21, 2016. Problem List Occasional pain. Looking forward to going home tomorrow. Objective Vital Signs Date Time Temp Pulse Resp B/P Pulse Ox O2 Delivery O2 Flow Rate FiO2 12/21/16 07:51 37.1 85 24 162/75 91 Room Air 12/21/16 04:15 96 163/77 12/21/16 04:00 37.0 87 20 163/87 92 Tent 15.0 50 12/21/16 04:00 92 Tent 15.0 50 12/21/16 01:25 87 165/88 12/21/16 00:37 97 165/97 12/21/16 00:00 92 Tent 15.0 50 12/20/16 23:55 37.1 100 20 165/85 97 Mask 12/20/16 20:00 Humidified Air Tent 12/20/16 19:46 37.0 91 20 153/88 94 Tent 15.0 12/20/16 16:00 Humidified Air Tent 12/20/16 15:41 36.7 83 20 160/89 93 Tent 12/20/16 15:18 93 Humidified Oxygen 11.0 Tent 12/20/16 15:00 88 Room Air 12/20/16 14:26 86 162/78 12/20/16 13:06 89 12/20/16 12:05 Humidified Air Tent 12/20/16 11:55 89 159/86 12/20/16 11:17 36.7 89 20 161/82 90 Room Air Minimal oozing from the nose. Laboratory Results Last 24 Hours Test 12/20/16 12:26 12/20/16 16:21 12/20/16 20:24 12/21/16 06:31 Bedside Glucose 173 mg/dl 155 mg/dl 138 mg/dl 170 mg/dl Test 12/21/16 06:32 White Blood Count 12.09 K/uL Red Blood Count 3.88 M/uL Hemoglobin 11.6 g/dL Hematocrit 35.6 % Mean Corpuscular Volume 91.8 fL Mean Corpuscular Hemoglobin 29.9 pg Mean Corpuscular Hemoglobin Concent 32.6 g/dl RDW Standard Deviation 47.1 fL RDW Coefficient of Variation 14.0 % Platelet Count 152 K/uL Mean Platelet Volume 10.0 fL Sodium Level 139 mmol/L Potassium Level 4.3 mmol/L Chloride Level 103 mmol/L Carbon Dioxide Level 32 mmol/L Anion Gap 4.0 mmol/L Blood Urea Nitrogen 21 mg/dl Creatinine 0.90 mg/dl Est Creatinine Clear Calc Drug Dose 95.0 ml/min Estimated GFR () 99.9 Estimated GFR (Non- 86.2 BUN/Creatinine Ratio 23.3 Random Glucose 157 mg/dl Calcium Level 8.6 mg/dl Magnesium Level 2.1 mg/dl Assessment and Plan Blood pressure should be around 140/90 to safely remove the nasal packing tomorrow. I will speak with Dr. Goncalves.
[2016-12-21] MEDS: PANTOprazole SOD 40 MG TAB PO SCH (08:55)
[2016-12-21] MEDS: OXYCODONE/ACETAMINOPHEN 5-325 TAB PO PRN ×2 (08:55→19:23)
[2016-12-21] MEDS: LISINOPRIL/HCTZ 20/25MG TAB PO SCH (08:56)
[2016-12-21] MEDS: TAMSULOSIN HCL 0.4 MG CAP PO SCH (08:56)
[2016-12-21] MEDS: AMLODIPINE BESYLATE 5 MG TAB PO SCH (08:56)
[2016-12-21] MEDS: FENOFIBRATE 145 MG TAB PO SCH (08:57)
[2016-12-21] MEDS: INSULIN ASPART 100 UNITS/ML 3 ML PEN SC SCH ×4 (09:03→20:39)
[2016-12-21] MEDS: CARVEDILOL 6.25 MG TAB PO SCH ×2 (11:46→20:33)
--- NOTE | 2016-12-21 18:27 | Progress Note ---
Medicine Progress Note Date & Time of Visit: Dec 21, 2016 at 18:21. Subjective Pt was seen and examined Sitting in bed with no acute respiratory distress denies any chest pain, palpitation, dizziness and sob Objective Last 8 Hrs Date Time Temp Pulse Resp B/P Pulse Ox O2 Delivery O2 Flow Rate FiO2 12/21/16 16:00 Room Air 12/21/16 15:10 36.6 82 18 163/79 90 Room Air 12/21/16 14:45 91 18 155/81 12/21/16 13:27 80 12/21/16 12:09 Room Air 12/21/16 11:51 36.9 81 18 164/79 92 Room Air Physical Exam: General- No acute distress Head- atraumatic Eyes- PERRL, EOMI ENT- +nasal packing and blood Neck- supple, no JVD Lungs- Poor air entry Heart- regular rhythm; no murmur Abdomen- normal bowel sounds, soft Extremities-no calf tenderness Neuro- alert, oriented x 3; PERRL, EOMI Skin- warm & dry Laboratory Results: Last 24 Hours Test 12/20/16 20:24 12/21/16 06:31 12/21/16 06:32 12/21/16 11:33 Bedside Glucose 138 mg/dl 170 mg/dl 150 mg/dl White Blood Count 12.09 K/uL Red Blood Count 3.88 M/uL Hemoglobin 11.6 g/dL Hematocrit 35.6 % Mean Corpuscular Volume 91.8 fL Mean Corpuscular Hemoglobin 29.9 pg Mean Corpuscular Hemoglobin Concent 32.6 g/dl RDW Standard Deviation 47.1 fL RDW Coefficient of Variation 14.0 % Platelet Count 152 K/uL Mean Platelet Volume 10.0 fL Sodium Level 139 mmol/L Potassium Level 4.3 mmol/L Chloride Level 103 mmol/L Carbon Dioxide Level 32 mmol/L Anion Gap 4.0 mmol/L Blood Urea Nitrogen 21 mg/dl Creatinine 0.90 mg/dl Est Creatinine Clear Calc Drug Dose 95.0 ml/min Estimated GFR () 99.9 Estimated GFR (Non- 86.2 BUN/Creatinine Ratio 23.3 Random Glucose 157 mg/dl Calcium Level 8.6 mg/dl Magnesium Level 2.1 mg/dl Test 12/21/16 16:37 Bedside Glucose 146 mg/dl Assessment & Plan POST OPERATIVE NASAL BLEEDING S/P Nasal/Septoplasty/Bilateral inferior turbinate reduction by Dr Huerta today on 12/19/16. Had nasal bleeding post operatively -IV Cefazolin 2 gram q 8 hours -Pain mx- IV Dilaudid 1 mg q 3 hours prn for severe pain, Percocet 5/325 mg q 4 hours prn for moderate pain -Face tent per ENT instructions -Hgb 11.6 -Case discussed with Dr. Huerta that recommended to continue the nasal packing, -Nasal packing might be removed tomorrow by Dr. Huerta -BP needs be below 140/90 for the nasal packing to remove -Continue monitor h/h HYPOXIA Post operative hypoxia with nasal bleeding/packing in setting of known MAXIM/ Kyphoscoliosis/Obesity -Monitor HYPERTENSION -Might be related to discomfort from the nasal packing -Norvasc increased to 10mg daily, -Continue Carvedilol 6.25 mg BID, Lisinopril/HCTZ 20/25 mg daily -Will try labetalol PRN for SBP above 165 -Monitor BP in telemetry HYPOMAGNESEMIA Mg 2.1 stable continue monitor PVCs Seen on tele monitor mostly related to low mg (mg 1.2) Continue monitor in telemetry DM-2; NIDDM -Accuchecks, ISS -Hold oral meds HX OF CAD- WITH STENT -Continue holding asa 325 mg for now due to the bleeding -Continue with Atorvastatin 40 mg, Coreg 6.25 mg bid, Lisinopril 20 mg daily, Spironolactone - held as on IVF -Asymptomatic DVT PROPHYLAXIS SCDS/TEDS re: nasal bleeding DISPOSITION Expected discharge home when stable per ENT Consultants: ENT Procedures: S/P Nasal/Septoplasty/Bilateral inferior turbinate reduction Current Inpatient Medications: Current Inpatient Medications Medications (Trade) Dose Ordered Sig/Silvia Route Start Time Stop Time Status Last Admin Dose Admin Albuterol (Ventolin Hfa Inhaler) 1 puffs Q6H PRN INH 12/19/16 11:45 01/18/17 11:44 Atorvastatin Calcium (Lipitor Tab) 40 mg QPM PO 12/19/16 21:00 01/18/17 20:59 12/20/16 21:17 40 MG Carvedilol (Coreg Tab) 6.25 mg BID PO 12/19/16 21:00 01/18/17 20:59 12/21/16 11:46 6.25 MG Fenofibrate (Tricor Tab) 145 mg QAM PO 12/20/16 09:00 01/19/17 08:59 12/21/16 08:57 145 MG HCTZ/Lisinopril (Prinzide 20-25MG Tab) 1 tab QAM PO 12/20/16 09:00 01/19/17 08:59 12/21/16 08:56 1 TAB Pantoprazole Sodium (Protonix Tab) 40 mg QAM PO 12/20/16 09:00 01/19/17 08:59 12/21/16 08:55 40 MG Tamsulosin HCl (Flomax Cap) 0.4 mg QAM PO 12/20/16 09:00 01/19/17 08:59 12/21/16 08:56 0.4 MG Insulin Aspart (novoLOG ASPART) SLIDING SCALE If C... ACHS SC 12/19/16 16:00 01/18/17 15:59 12/21/16 17:55 5 UNITS Glucose (Glucose 40% Gel) 15-30 GRAMS 15 GRAMS... UD PRN PO 12/19/16 11:45 01/18/17 11:44 Glucose (Glucose Chew Tab) 4-8 Tablets 4 Tabl... UD PRN PO 12/19/16 11:45 01/18/17 11:44 Dextrose (Dextrose 50% 50ML Syringe) 25-50ML OF 50% DW IV FOR... UD PRN IV 12/19/16 11:45 01/18/17 11:44 Glucagon (Glucagon Inj) 1 mg UD PRN SQ 12/19/16 11:45 01/18/17 11:44 Acetaminophen (Tylenol Tab) 650 mg Q4H PRN PO 12/19/16 11:45 01/18/17 11:44 Magnesium Hydroxide (Milk Of Magnesia Susp) 30 ml Q6H PRN PO 12/19/16 11:45 01/18/17 11:44 Polyethylene (Miralax Powder Packet) 17 gm DAILY PRN PO 12/19/16 11:45 01/18/17 11:44 Ondansetron HCl (Zofran Inj) 4 mg Q6H PRN IV 12/19/16 11:45 01/18/17 11:44 Zolpidem Tartrate (Ambien Tab) 5 mg HSZ PRN PO 12/19/16 11:45 01/18/17 11:44 Tramadol HCl (Ultram Tab) 50 mg Q4H PRN PO 12/19/16 11:45 01/18/17 11:44 Oxycodone/ Acetaminophen (Percocet 5-325mg Tab) 1 tab Q4H PRN PO 12/19/16 13:00 01/02/17 12:59 12/21/16 08:55 1 TAB Miscellaneous (Iv Fluids Completed) 1 ea PRN PRN N/A 12/19/16 14:00 12/19/17 13:59 Hydralazine HCl (HydrALAZINE INJ) 10 mg Q8H PRN IV. 12/19/16 14:15 01/18/17 14:14 12/21/16 02:35 10 MG Amlodipine Besylate (Norvasc Tab) 10 mg QAM PO 12/20/16 09:00 01/19/17 08:59 12/21/16 08:56 10 MG Naloxone HCl (Narcan Inj) 0.1 mg Q5M PRN IV 12/19/16 16:15 01/18/17 16:14 Hydromorphone HCl 25 mg 25 mg PRN PRN IV 12/19/16 16:15 01/02/17 16:14 Future hold 12/19/16 16:49 25 MG Sodium Chloride (Nss 1000ml) 1,000 ml @ 15 mls/hr Q24H IV 12/19/16 16:07 01/18/17 16:06 12/20/16 16:07 15 MLS/HR Albuterol/ Ipratropium (Duoneb) 3 ml Q4H PRN INH 12/20/16 12:30 01/19/17 12:29 Metoprolol Tartrate (Lopressor Iv) 5 mg Q6 PRN IV 12/20/16 18:00 01/19/17 17:59 12/21/16 13:27 5 MG
[2016-12-21] MEDS: ATORVASTATIN 40 MG TAB PO SCH (20:33)
[2016-12-22] VITALS (9 sets, daily range): BP systolic 147–183; BP diastolic 75–93; PULSE 73–88; TEMP 36.6–37; O2SAT 92–94
[2016-12-22] MEDS: HYDROmorphone HCL 0.5MG/ML 50 ML CASSETTE IV PRN (00:26)
[2016-12-22] MEDS: METOPROLOL TARTRATE 1 MG/ML VIAL IV PRN (03:33)
[2016-12-22] MEDS: OXYCODONE/ACETAMINOPHEN 5-325 TAB PO PRN (06:15)
[2016-12-22 06:44] LABS: HEMATOCRIT 34.7 % (42-52); MEAN CELL VOLUME 90.6 fL (80-100); MEAN CORPUSCULAR HEMOGLOBIN 30.5 pg (25-34); MEAN CORPUSCULAR HGB CONC 33.7 g/dl (32-36); MEAN PLATELET VOLUME 10.1 fL (7.4-10.4); PLATELET COUNT 150 K/uL (130-400); RED BLOOD COUNT 3.83 M/uL (4.7-6.1); WHITE BLOOD COUNT 10.77 K/uL (4.8-10.8)
[2016-12-22] MEDS: INSULIN ASPART 100 UNITS/ML 3 ML PEN SC SCH ×2 (07:00→11:00)
[2016-12-22] MEDS ORDERED: LABETALOL HCL IV 5 MG/ML 20ML IV ONE ×3 (07:30→12:45)
--- NOTE | 2016-12-22 08:40 | Progress Note ---
Subjective Date of Service: Dec 22, 2016. Problem List Eager to go home. No significant bleeding. Objective Vital Signs Date Time Temp Pulse Resp B/P Pulse Ox O2 Delivery O2 Flow Rate FiO2 12/22/16 07:30 36.6 88 18 183/75 92 Room Air 12/22/16 05:18 88 160/93 12/22/16 04:00 Room Air 12/22/16 03:34 37.0 88 20 165/82 92 Room Air 12/22/16 03:33 88 165/82 12/22/16 00:01 Room Air 12/21/16 23:10 36.9 86 18 160/88 91 Room Air 12/21/16 21:35 89 18 168/77 90 Room Air 12/21/16 20:31 91 19 174/82 90 Room Air 12/21/16 19:28 84 177/93 12/21/16 19:24 Room Air 12/21/16 19:05 37.0 63 20 177/93 93 Room Air 12/21/16 16:00 Room Air 12/21/16 15:10 36.6 82 18 163/79 90 Room Air 12/21/16 14:45 91 18 155/81 12/21/16 13:27 80 12/21/16 12:09 Room Air 12/21/16 11:51 36.9 81 18 164/79 92 Room Air Although his BP is still higher than I would prefer, I decided to remove his intranasal packing. My thinking was that it may be causing enough discomfort to raise his BP. He had minimal oozing which stopped within minutes following removal of his packing. Mustache dressing was placed. Laboratory Results Last 24 Hours Test 12/21/16 11:33 12/21/16 16:37 12/21/16 20:02 12/21/16 20:38 Bedside Glucose 150 mg/dl 146 mg/dl 140 mg/dl 137 mg/dl Test 12/22/16 06:12 12/22/16 06:59 White Blood Count 10.77 K/uL Red Blood Count 3.83 M/uL Hemoglobin 11.7 g/dL Hematocrit 34.7 % Mean Corpuscular Volume 90.6 fL Mean Corpuscular Hemoglobin 30.5 pg Mean Corpuscular Hemoglobin Concent 33.7 g/dl RDW Standard Deviation 45.5 fL RDW Coefficient of Variation 13.7 % Platelet Count 150 K/uL Mean Platelet Volume 10.1 fL Magnesium Level 1.7 mg/dl Bedside Glucose 152 mg/dl Assessment and Plan He tolerated packing removing very well. Full post-op care instructions were discussed with his , Ludmila. I also discussed the plan with Dr. Sharon Goncalves. He should follow-up in my office on , 12/28/16.
[2016-12-22] MEDS: TAMSULOSIN HCL 0.4 MG CAP PO SCH (08:53)
[2016-12-22] MEDS: FENOFIBRATE 145 MG TAB PO SCH (08:53)
[2016-12-22] MEDS: LISINOPRIL/HCTZ 20/25MG TAB PO SCH (08:54)
[2016-12-22] MEDS: PANTOprazole SOD 40 MG TAB PO SCH (08:54)
[2016-12-22] MEDS: AMLODIPINE BESYLATE 5 MG TAB PO SCH (08:54)
[2016-12-22] MEDS: CARVEDILOL 6.25 MG TAB PO SCH (08:54)
--- NOTE | 2016-12-22 13:21 | Progress Note ---
Medicine Progress Note Date & Time of Visit: Dec 22, 2016 at 13:07. Subjective Pt was seen and examined Lying in bed with no distress with and son at bedside Dr. Huerta removed the nasal packing this morning very anxious to go home denies any chest pain, palpitation, dizziness and sob Objective Last 8 Hrs Date Time Temp Pulse Resp B/P Pulse Ox O2 Delivery O2 Flow Rate FiO2 12/22/16 12:30 147/80 12/22/16 12:00 Room Air 12/22/16 11:51 36.7 76 18 157/79 93 Room Air 12/22/16 11:44 36.8 73 20 147/80 92 Room Air 12/22/16 09:53 85 163/89 12/22/16 08:00 Room Air 12/22/16 07:30 36.6 88 18 183/75 92 Room Air 12/22/16 05:18 88 160/93 Physical Exam: General- No acute distress Head- atraumatic Eyes- PERRL, EOMI ENT- mustache dressing placed Neck- supple, no JVD Lungs- Poor air entry Heart- regular rhythm; no murmur Abdomen- normal bowel sounds, soft Extremities-no calf tenderness Neuro- alert, oriented x 3; PERRL, EOMI Skin- warm & dry Laboratory Results: Last 24 Hours Test 12/21/16 16:37 12/21/16 20:02 12/21/16 20:38 12/22/16 06:12 Bedside Glucose 146 mg/dl 140 mg/dl 137 mg/dl White Blood Count 10.77 K/uL Red Blood Count 3.83 M/uL Hemoglobin 11.7 g/dL Hematocrit 34.7 % Mean Corpuscular Volume 90.6 fL Mean Corpuscular Hemoglobin 30.5 pg Mean Corpuscular Hemoglobin Concent 33.7 g/dl RDW Standard Deviation 45.5 fL RDW Coefficient of Variation 13.7 % Platelet Count 150 K/uL Mean Platelet Volume 10.1 fL Magnesium Level 1.7 mg/dl Test 12/22/16 06:59 Bedside Glucose 152 mg/dl Assessment & Plan POST OPERATIVE NASAL BLEEDING S/P Nasal/Septoplasty/Bilateral inferior turbinate reduction by Dr Huerta on . Had nasal bleeding post operatively -IV Cefazolin 2 gram q 8 hours -Pain mx- IV Dilaudid 1 mg q 3 hours prn for severe pain, Percocet 5/325 mg q 4 hours prn for moderate pain -Face tent per ENT instructions -Hgb 11.7 - Nasal packing removed today by Dr. Huerta - Case discussed with Dr. Huerta - Will continue monitor pt until the afternoon - as per Dr. Huerta if no bleeding, ok to discharge home later - Dr. Huerta discussed full post-op care instructions with his , Ludmila - Pt already had a follow-up appt my with Dr. Huerta on , 12/28/16. - Will discharge with pain med. HYPOXIA Post operative hypoxia with nasal bleeding/packing in setting of known MAXIM/ Kyphoscoliosis/Obesity -Stable HYPERTENSION -Might be related to discomfort from the nasal packing and hospital setting -Norvasc increased to 10mg daily, -Continue Carvedilol 6.25 mg BID, Lisinopril/HCTZ 20/25 mg daily -he has a follow up appt with Cardiology on December 25 - continue monitor BP HYPOMAGNESEMIA Mg 1.7 today Mg replaced continue monitor PVCs Seen on tele monitor mostly related to low mg (mg 1.2) stable DM-2; NIDDM -Accuchecks, ISS -Hold oral meds HX OF CAD- WITH STENT -Continue holding asa 325 mg for now due to the bleeding -Continue with Atorvastatin 40 mg, Coreg 6.25 mg bid, Lisinopril 20 mg daily, Spironolactone - held as on IVF -Asymptomatic DVT PROPHYLAXIS SCDS/TEDS re: nasal bleeding DISPOSITION Expected discharge home today Consultants: ENT Procedures: S/P Nasal/Septoplasty/Bilateral inferior turbinate reduction Current Inpatient Medications: Current Inpatient Medications Medications (Trade) Dose Ordered Sig/Silvia Route Start Time Stop Time Status Last Admin Dose Admin Albuterol (Ventolin Hfa Inhaler) 1 puffs Q6H PRN INH 12/19/16 11:45 01/18/17 11:44 Atorvastatin Calcium (Lipitor Tab) 40 mg QPM PO 12/19/16 21:00 01/18/17 20:59 12/21/16 20:33 40 MG Carvedilol (Coreg Tab) 6.25 mg BID PO 12/19/16 21:00 01/18/17 20:59 12/22/16 08:54 6.25 MG Fenofibrate (Tricor Tab) 145 mg QAM PO 12/20/16 09:00 01/19/17 08:59 12/22/16 08:53 145 MG HCTZ/Lisinopril (Prinzide 20-25MG Tab) 1 tab QAM PO 12/20/16 09:00 01/19/17 08:59 12/22/16 08:54 1 TAB Pantoprazole Sodium (Protonix Tab) 40 mg QAM PO 12/20/16 09:00 01/19/17 08:59 12/22/16 08:54 40 MG Tamsulosin HCl (Flomax Cap) 0.4 mg QAM PO 12/20/16 09:00 01/19/17 08:59 12/22/16 08:53 0.4 MG Insulin Aspart (novoLOG ASPART) SLIDING SCALE If C... ACHS SC 12/19/16 16:00 01/18/17 15:59 12/21/16 17:55 5 UNITS Glucose (Glucose 40% Gel) 15-30 GRAMS 15 GRAMS... UD PRN PO 12/19/16 11:45 01/18/17 11:44 Glucose (Glucose Chew Tab) 4-8 Tablets 4 Tabl... UD PRN PO 12/19/16 11:45 01/18/17 11:44 Dextrose (Dextrose 50% 50ML Syringe) 25-50ML OF 50% DW IV FOR... UD PRN IV 12/19/16 11:45 01/18/17 11:44 Glucagon (Glucagon Inj) 1 mg UD PRN SQ 12/19/16 11:45 01/18/17 11:44 Acetaminophen (Tylenol Tab) 650 mg Q4H PRN PO 12/19/16 11:45 01/18/17 11:44 Magnesium Hydroxide (Milk Of Magnesia Susp) 30 ml Q6H PRN PO 12/19/16 11:45 01/18/17 11:44 Polyethylene (Miralax Powder Packet) 17 gm DAILY PRN PO 12/19/16 11:45 01/18/17 11:44 Ondansetron HCl (Zofran Inj) 4 mg Q6H PRN IV 12/19/16 11:45 01/18/17 11:44 Zolpidem Tartrate (Ambien Tab) 5 mg HSZ PRN PO 12/19/16 11:45 01/18/17 11:44 Tramadol HCl (Ultram Tab) 50 mg Q4H PRN PO 12/19/16 11:45 01/18/17 11:44 Oxycodone/ Acetaminophen (Percocet 5-325mg Tab) 1 tab Q4H PRN PO 12/19/16 13:00 01/02/17 12:59 12/22/16 06:15 1 TAB Miscellaneous (Iv Fluids Completed) 1 ea PRN PRN N/A 12/19/16 14:00 12/19/17 13:59 Hydralazine HCl (HydrALAZINE INJ) 10 mg Q8H PRN IV. 12/19/16 14:15 01/18/17 14:14 12/21/16 21:54 10 MG Amlodipine Besylate (Norvasc Tab) 10 mg QAM PO 12/20/16 09:00 01/19/17 08:59 12/22/16 08:54 10 MG Naloxone HCl (Narcan Inj) 0.1 mg Q5M PRN IV 12/19/16 16:15 01/18/17 16:14 Hydromorphone HCl 25 mg 25 mg PRN PRN IV 12/19/16 16:15 01/02/17 16:14 Future hold 12/22/16 00:26 25 MG Sodium Chloride (Nss 1000ml) 1,000 ml @ 15 mls/hr Q24H IV 12/19/16 16:07 01/18/17 16:06 12/20/16 16:07 15 MLS/HR Albuterol/ Ipratropium (Duoneb) 3 ml Q4H PRN INH 12/20/16 12:30 01/19/17 12:29 Metoprolol Tartrate (Lopressor Iv) 5 mg Q6 PRN IV 12/20/16 18:00 01/19/17 17:59 12/22/16 03:33 5 MG Labetalol HCl (Normodyne IV) 5 mg ONE ONCE IV 12/22/16 12:45 12/22/16 12:46 UNV
[2016-12-22] MEDS: MAGNESIUM SULFATE 1GM / D5W 1 GM in PREMIXED IN D5W 100 ML IV SCH ×2 (14:28→15:25)
[2016-12-22] MEDS ORDERED: NRV/10 PO (15:37)
--- NOTE | 2016-12-22 16:02 | Discharge Instructions ---
Discharge Instructions Date of Service Dec 22, 2016. Admission Reason for Admission: Chronic Pansinusitis; Deviated Nasal Septum Discharge Discharge Diagnosis / Problem: POST OPERATIVE NASAL BLEEDING, Hypomagnesemia, Hypertension, PVC Discharge Goals Goal(s): Decrease discomfort, Improve function, Improve disease control Activity Recommendations Activity Limitations: resume your previous activity (increase gradually and as tolerated) . Instructions / Follow-Up Instructions / Follow-Up Follow up appointment with your primary care provier Dr. Mittal on December 28 @ 9:05 am Follow up with ENT Dr. Huerta on December 28 @ 11:30 am Follow up with your Cardiology on Sunday, December 25 @ 1:05 pm Continue to hold aspirin for now Hold Flonase for now until ok to resume by Dr. Huerta Follow Dr. Huerta post-op care instructions (discussed with and Son) Amlodipine (Norvasc) increased to 10mg due to elevated blood pressure Continue monitor blood pressure Magnesium started due to low magnesium level Check Magnesium in 1 week Current Hospital Diet Patient's current hospital diet: Low Sodium Diet (2gm Na), AHA Diet (Heart Healthy), Diabetes Type 2 Diet Discharge Diet Recommended Diet: AHA Diet (Heart Healthy), Diabetes Type 2 Diet Procedures Procedures Performed: Nasal and Sinus Surgical Endoscopy with Fusion Image Guidance; Septoplasty and Bilateral Inferior Turbinate Reduction Pending Studies Studies pending at discharge: no Medical Emergencies . Who to Call and When: Medical Emergencies: If at any time you feel your situation is an emergency, please call 911 immediately. . Non-Emergent Contact Non-Emergency issues call your: Primary Care Provider Call Non-Emergent contact if: your pain is not controlled, your pain is unusual for you, your pain is concerning you . . "Provider Documentation" section prepared by Sharon Goncalves. . VTE Core Measure Inpt VTE Proph given/why not?: T.E.D. Stockings, SCD's, Contraindicated (re: nasal bleeding.) [place] Drug Monitoring Program Search Results: patient reviewed within database
[2016-12-22] MEDS ORDERED: MAGN1TAB19 PO (16:03)
[2016-12-22] MEDS ORDERED: OXYC-57 PO (16:05)
--- NOTE | 2016-12-23 17:31 | Discharge Summary ---
Discharge Summary Date of Service Dec 23, 2016. Discharge Summary Admission Date: Dec 21, 2016 at 08:31 Discharge Date: Dec 22, 2016 Discharge Disposition: Home Principal Diagnosis: POST OPERATIVE NASAL BLEEDING Secondary Diagnoses/Problems: HYPERTENSION HYPOMAGNESEMIA PVCs HX OF CAD- WITH STENT Procedures: S/P Nasal/Septoplasty/Bilateral inferior turbinate reduction Consultations: ENT Medication Reconciliation New Medications: Magnesium Oxide (Mg Supplement (Magnesium Oxide) 400 Mg Tab 400 MG PO DAILY for 30 Days, #30 TAB Amlodipine Besylate (Amlodipine Besylate) 10 Mg Tab 1 TAB PO DAILY for 30 Days Oxycodone/Acetaminophen 5MG/325MG (Percocet 5MG/325MG) Tab 1 TAB PO Q12 PRN for Pain for 5 Days, #10 TAB PAIN Continued Medications: Albuterol Hfa (Ventolin Hfa) 200 Puffs/69567 Mcg Aers 1 PUFFS INH Q6H PRN for PRN, #1 INHALER Aspirin (Aspirin *) 325 Mg Tab 325 MG PO QAM, 0 Refills Atorvastatin (Lipitor) 40 Mg Tab 40 MG PO QPM, 0 Refills Carvedilol (Coreg) 6.25 Mg Tab 6.25 MG PO BID, TAB Fenofibrate (Tricor ) 145 Mg Tab 145 MG PO QAM, 0 Refills Glipizide (Glipizide Er) 10 Mg Tab 1 TAB PO QPM for 90 Days, TAB 3 Refills Lisinopril/Hctz (Zestoretic 20MG/25MG) Tab 1 TAB PO QAM, TAB Metformin HCL (Glucophage *) 1,000 Mg Tab 1000 MG PO BID, 0 Refills Pantoprazole (Protonix) 40 Mg Tab 40 MG PO QAM, #30 0 Refills Pseudoephedrine-Guaifenesin (Mucinex D) 1 Tab Tab 1 TAB PO PRN for 10 Days, TAB Spironolactone (Aldactone) 25 Mg Tab 25 MG PO QAM, TAB Tamsulosin Hcl (Flomax) 0.4 Mg Cap 0.4 MG PO QAM, CAP Discontinued Medications: Amlodipine (Norvasc) 5 Mg Tab 5 MG PO QAM, TAB Fluticasone Propionate (Nasal) (Flonase Allergy Relief) 50 Mcg/Act Spr 2 SPRAYS CRISTHIAN QAM [Azelestaline] () 2 SPRAYS CRISTHIAN PRN Admission Information HPI (per Admitting provider): This is a 71 year old M with PMH as mentioned below, was evaluated in the PACU post nasal and septoplasty with inferior turbinate reduction (bilateral), for admission request per Dr Huerta for post operative nasal bleeding. Patient had nasal bleeding post operatively- now under control with nasal packing by ENT. Vitals stable, BP 130s. Patient c/o pain at surgical site, rating it 7/10. Discomfort secondary to packing/post operative status. Denies any chest pain, fever, chills, nausea, vomiting, SOB. Will admit him under observation for close monitoring for post operative nasal bleeding. Physical Exam (per Admitting): General Appearance: + mild distress (secondary to nasal packing) Head: normocephalic, atraumatic Eyes: PERRL ENT: + pertinent finding (Nasal packing +, Bleeding ) Neck: supple Respiratory/Chest: chest non-tender, no respiratory distress, no accessory muscle use, + decreased breath sounds Cardiovascular: regular rate, rhythm, no murmur Abdomen/GI: non tender, soft Extremities/Musculoskelatal: no pedal edema Neurologic/Psych: + pertinent finding (grossly no focal deficits. Awake, oriented x 3) Hospital Course POST OPERATIVE NASAL BLEEDING S/P Nasal/Septoplasty/Bilateral inferior turbinate reduction by Dr Huerta on . Had nasal bleeding post operatively -IV Cefazolin 2 gram q 8 hours -Pain mx- IV Dilaudid 1 mg q 3 hours prn for severe pain, Percocet 5/325 mg q 4 hours prn for moderate pain -Face tent per ENT instructions -Hgb 11.7 - Nasal packing removed today by Dr. Huerta - Case discussed with Dr. Huerta - Will continue monitor pt until the afternoon - as per Dr. Huerta if no bleeding, ok to discharge home later - Dr. Huerta discussed full post-op care instructions with his , Ludmila - Pt already had a follow-up appt my with Dr. Huerta on , 12/28/16. - Will discharge with pain med. HYPOXIA Post operative hypoxia with nasal bleeding/packing in setting of known MAXIM/ Kyphoscoliosis/Obesity -Stable HYPERTENSION -Might be related to discomfort from the nasal packing and hospital setting -Norvasc increased to 10mg daily, -Continue Carvedilol 6.25 mg BID, Lisinopril/HCTZ 20/25 mg daily -he has a follow up appt with Cardiology on December 25 - continue monitor BP HYPOMAGNESEMIA Mg 1.7 today Mg replaced continue monitor PVCs Seen on tele monitor mostly related to low mg (mg 1.2) stable DM-2; NIDDM -Accuchecks, ISS -Hold oral meds HX OF CAD- WITH STENT -Continue holding asa 325 mg for now due to the bleeding -Continue with Atorvastatin 40 mg, Coreg 6.25 mg bid, Lisinopril 20 mg daily, Spironolactone - held as on IVF -Asymptomatic DVT PROPHYLAXIS SCDS/TEDS re: nasal bleeding DISPOSITION Expected discharge home today Total time spent on discharge = 35 minutes This includes examination of the patient, discharge planning, medication reconciliation, and communication with other providers. Discharge Instructions Discharge Instructions Date of Service Dec 22, 2016. Admission Reason for Admission: Chronic Pansinusitis; Deviated Nasal Septum Discharge Discharge Diagnosis / Problem: POST OPERATIVE NASAL BLEEDING, Hypomagnesemia, Hypertension, PVC Discharge Goals Goal(s): Decrease discomfort, Improve function, Improve disease control Activity Recommendations Activity Limitations: resume your previous activity (increase gradually and as tolerated) . Instructions / Follow-Up Instructions / Follow-Up Follow up appointment with your primary physician Dr. Mittal on December 28 @ 9:05 am Follow up with ENT Dr. Huerta on December 28 @ 11:30 am Follow up with your Cardiology on December 25 @ 1:05 pm Continue to hold aspirin for now Hold Flonase for now until ok to resume by Dr. Huerta Follow Dr. Huerta post-op care instructions (discussed with and Son) Amlodipine (Norvasc) increased to 10mg due to elevated blood pressure Continue monitor blood pressure Magnesium started due to low magnesium level Check Magnesium in 1 week Current Hospital Diet Patient's current hospital diet: Low Sodium Diet (2gm Na), AHA Diet (Heart Healthy), Diabetes Type 2 Diet Discharge Diet Recommended Diet: AHA Diet (Heart Healthy), Diabetes Type 2 Diet Procedures Procedures Performed: Nasal and Sinus Surgical Endoscopy with Fusion Image Guidance; Septoplasty and Bilateral Inferior Turbinate Reduction Pending Studies Studies pending at discharge: no Medical Emergencies . Who to Call and When: Medical Emergencies: If at any time you feel your situation is an emergency, please call 911 immediately. . Non-Emergent Contact Non-Emergency issues call your: Primary Care Provider Call Non-Emergent contact if: your pain is not controlled, your pain is unusual for you, your pain is concerning you . . "Provider Documentation" section prepared by Sharon Goncalves. . VTE Core Measure Inpt VTE Proph given/why not?: T.E.D. Stockings, SCD's, Contraindicated (re: nasal bleeding.) [place] Drug Monitoring [place] Search Results: patient reviewed within database Additional Copies To Julita Mittal,DO
== END 2016-12-22 16:20 | disposition home or self-care (01) | DRG 909 ==
LOC: ENRESERVTM → ENRESERVDT → C.ACU 05:27 → C.MSN 11:40 → C.2T 20:21 → OBSVTOIN 12-21 08:31
PROVIDERS: ADMIT Internal Medicine; ATTEND Internal Medicine
PROC: 09BR4ZZ Excision of Left Maxillary Sinus, Percutaneous Endoscopic Approach (ICD-10-PCS; principal; 2016-12-19 07:30)
PROC: 09BQ4ZZ Excision of Right Maxillary Sinus, Percutaneous Endoscopic Approach (ICD-10-PCS; principal; 2016-12-19 07:30)
PROC: 09BV4ZZ Excision of Left Ethmoid Sinus, Percutaneous Endoscopic Approach (ICD-10-PCS; principal; 2016-12-19 07:30)
PROC: 09BL4ZZ Excision of Nasal Turbinate, Percutaneous Endoscopic Approach (ICD-10-PCS; principal; 2016-12-19 07:30)
PROC: 09BU4ZZ Excision of Right Ethmoid Sinus, Percutaneous Endoscopic Approach (ICD-10-PCS; principal; 2016-12-19 07:30)
DX: J95.830 Postprocedural hemorrhage of a respiratory system organ or structure following a respiratory system procedure (principal); E83.42 Hypomagnesemia; J32.9 Chronic sinusitis, unspecified; M41.9 Scoliosis, unspecified; E66.9 Obesity, unspecified; G47.33 Obstructive sleep apnea (adult) (pediatric); J34.3 Hypertrophy of nasal turbinates; I10 Essential (primary) hypertension; E11.9 Type 2 diabetes mellitus without complications; I25.10 Atherosclerotic heart disease of native coronary artery without angina pectoris; E78.5 Hyperlipidemia, unspecified; J34.2 Deviated nasal septum; Z85.46 Personal history of malignant neoplasm of prostate; Z87.891 Personal history of nicotine dependence

== ENCOUNTER 2020-05-14 16:49 | Inpatient (IN) ==
--- OUTSIDE RECORDS SUMMARY | 2020-05-14 16:54 | External Medical Summary | Continuity of Care Document ---
:1945 Author Name Shakila James, Provider Address Unavailable Unavailable , Care Team Providers Name Role Phone Unavailable Unavailable Unavailable ELLENJONATHAN URBANO Rich Unavailable Unavailable Unavailable Unavailable Unavailable Problems Partial Tear Of Right Rotator Cuff Tendon (726.13) Diabetes mellitus (250.00) (E11.9) Hypertension (401.9) (I10) Carpal tunnel syndrome (354.0) (G56.00) Carpal tunnel syndrome (354.0) (G56.00) Gout (274.9) (M10.9) Esophageal reflux (530.81) (K21.9) Hypercholesterolemia (272.0) (E78.00) Heart disease (429.9) (I51.9) Allergies and Adverse Reactions Plavix TABS (Allergy) Medications amLODIPine Besylate 5 MG Oral Tablet; TAKE 1 TABLET DAILY. , M.D. Refills: 0 cloNIDine HCl - 0.1 MG Oral Tablet; TAKE 1 TABLET TWICE HILARY Y. , M.D. Refills: 0 metFORMIN HCl - 1000 MG Oral Tablet; TAKE 1 TABLET TWICE JUSTA LY. , M.D. Refills: 0 Carvedilol 6.25 MG Oral Tablet; TAKE 1 TABLET TWICE DAILY WI MEALS. , M.D. Refills: 0 Benicar HCT 40-12.5 MG Oral Tablet; TAKE 1 TABLET DAILY. , M .D. Refills: 0 Atorvastatin Calcium 40 MG Oral Tablet; TAKE 1 TABLET DAILY. , M.D. Refills: 0 Tamsulosin HCl - 0.4 MG Oral Capsule; TAKE 1 CAPSULE Daily , M.D. Refills: 0 Spironolactone 25 MG Oral Tablet; TAKE 1 TABLET DAILY. , M.D . Refills: 0 Vitamin D2 50 MCG (1999) Oral Tablet , M.D. Refills: 0 glipiZIDE 10 MG Oral Tablet; TAKE 1 TABLET DAILY. , M.D. Refills: 0 Pantoprazole Sodium 40 MG Oral Tablet Delayed Release , M.D. Refills: 0 Fenofibrate 145 MG Oral Tablet; TAKE 1 TABLET DAILY. , M.D. Refills: 0 Aspirin 325 MG Oral Tablet , M.D. Refills: 0 Spiriva HandiHaler 18 MCG Inhalation Capsule , M.D. Refills: 0 Advair Diskus 100-50 MCG/DOSE Inhalation Aerosol Powder [place] th Activated , M.D. Refills: 0 ProAir HFA AERS , M.D. Refills: 0 Azelastine HCl - 0.1 % Nasal Solution , M.D. Refills: 0 Fluticasone Propionate 50 MCG/ACT Nasal Suspension , M.D. Refills: 0 Procedures History of Appendectomy Status: Complete d History of Knee Arthroscopy With Medial Meniscus Repair Status: Completed History of Rotator Cuff Repair Status: C ompleted Immunizations Immunizations not documented Family History Unknown Family Member Family history of Colon Cancer (V16.0) Status: Active C omments: Family History Family history of Congestive Heart Failure Status: Active Comments: Family History Social History - Smoking Status Ex-smoker Plan of Treatment Planned Observations Planned Goals not documented Results No Known Results Results not documented
--- OUTSIDE RECORDS SUMMARY | 2020-05-14 16:54 | External Medical Summary | Continuity of Care Document ---
[...] and Adverse Reactions Plavix TABS (Allergy) Medications metFORMIN HCl - 1000 MG Oral Tablet; [...] Advair Diskus 100-50 MCG/DOSE Inhalation Aerosol Powder [place] th Activated , M.DNixon Refills: 0 ProAir HFA AERS , M.D. Refills: 0 Azelastine HCl - 0.1 % Nasal Solution , M.D. Refills: 0 Fluticasone Propionate 50 MCG/ACT Nasal Suspension , M.D. Refills: 0 cloNIDine HCl - 0.1 MG Oral Tablet; TAKE 1 TABLET TWICE Ellis ROBERT.D. Refills: 0 amLODIPine Besylate 5 MG Oral Tablet; TAKE 1 TABLET DAILY. , M.D. Refills: 0 Procedures History of [...]
[2020-05-14] MEDS ORDERED: SODIUM CHLORIDE 0.9% 500 ML IV SCH (17:15)
--- NOTE | 2020-05-14 17:18 | Emergency Department Note ---
Impression & Plan Acute hyperglycemia, Afib, Weakness, Acute kidney injury ED Provider Note NAME: CHETNA WERNER AGE: 74 SEX: M : 1945 ARRIVES VIA: Walk-In INFORMANT: Patient, ED PROVIDER(S): Cory Jimenez DO CHIEF COMPLAINT: Weakness HPI: The patient is a 74-year-old male who presented to the emergency department for an evaluation of generalized weakness. The patient has been experiencing polyuria and polydipsia as well as generalized weakness over the last few days. He does have a history of type 2 diabetes but is been on no medications for about a year. He is scheduled for ablation procedure and was seen by his primary care physician today and had outpatient laboratory studies. He also was seen by his spring floor service worker. When he was seen by the spring floor service worker he was noted to have a very elevated blood sugar. He was sent to the emergency department for further evaluation and likely admission for medical management and then to be scheduled for his ablation. He denies having any chest pain. He is noticed no lower extremity swelling. He does note polyuria and polydipsia. He is also noticed generalized weakness. He has no headache or recent falls. He denies having any chest pain or difficulty breathing at this time. ROS: See above HPI for pertinent positives & negatives. A total of 10 systems reviewed and were otherwise negative. PAST MEDICAL HISTORY: See Below PAST SURGICAL HISTORY: See Below FAMILY HISTORY: See Below SOCIAL HISTORY: See Below HOME MEDICATIONS: See Below ALLERGIES: See Below VITALS: See Below PHYSICAL EXAMINATION: GENERAL: Patient is awake alert in no acute distress patient is resting comfortably and showing no signs of anxiety EYES: The conjunctivae are clear. The pupils are round and reactive. EARS, NOSE, MOUTH AND THROAT: The nose is without any evidence of any deformity. Mucous membranes are dry. NECK: The neck is nontender and supple. RESPIRATORY: Normal respiratory effort is noted there is no evidence of wheezing rhonchi or rales CARDIOVASCULAR: Irregular rhythm was noted to auscultation. There is no definite murmur. GASTROINTESTINAL: The abdomen is soft. Abdomen is nontender. MUSCULOSKELETAL/EXTREMITIES: There is no evidence of gross deformity full range of motion is noted in the hips and shoulders. SKIN: There is no obvious evidence of any rash. There are no petechiae, pallor or cyanosis noted. NEUROLOGIC: Patient is awake alert and oriented x3. MEDICAL DECISION MAKING: The patient is a 74-year-old male who presented to the emergency department for an evaluation of generalized weakness. The patient has been experiencing polyuria and polydipsia. He does have a history of diabetes but is not being treated for diabetes over the last year. He presented to the emergency department today because of ongoing symptoms but was advised to come by his primary care physician because of an elevated glucose. The patient was found to have very severe hyperglycemia. He was treated with IV fluids and IV insulin in the emergency department. He was reevaluated multiple times. I discussed his case with the on-call [facility]ist. They have agreed to evaluate the patient in the emergency department for further management and disposition. Triage Nursing notes reviewed. Prior medical records reviewed Vital Signs: reviewed and remarkable for elevated blood pressure. Differential diagnosis: Infection, dehydration, metabolic abnormality, hypo/hyperglycemia, electrolyte disturbance, anemia, hypoxia, cardiac sources, intracerebral event, toxicologic, neurologic, as well as other pathologies. ER treatment provided: See below Diagnostics interpreted by me: ECG: EKG was obtained in the emergency department. My interpretation is atrial fibrillation at 80 bpm. PVCs were noted. No acute ST segment abnormalities were noted. This was compared to a tracing from December 202016. No significant changes were noted. Cardiac Monitoring: An order was placed for continuous cardiac monitoring. The monitor shows a rate of 92 bpm with atrial fibrillation rhythm. Laboratory studies: As stated above and show below. Imaging studies: See below Consultation(s): 1830: I discussed this case with Dr. Thomas who is on-call for the [facility]ist group. Past Med/Surg History Medical History (Updated 05/14/20 @ 22:23 by Cory Jimenez DO) Atrial fibrillation COPD (chronic obstructive pulmonary disease) Coronary artery disease Esophageal reflux Hyperlipidemia Hypertension Prostate cancer Type 2 diabetes mellitus Surgical History (Updated 05/14/20 @ 19:06 by Jacky Thomas DO) History of appendectomy History of coronary artery bypass graft Social History Smoking Status: Former smoker Smoking End Date: 1956; Hx Alcohol Use: Yes (quit in January 2020) Hx Substance Use: No Preferred Language: Tamazight Communication Ability: Effective Flame Burner Required: No Beliefs That Will Affect Care: None Current Living Situation: Alone Feels Safe at Home: Yes Safety Concerns: Feels Safe At This Time Allergies Allergies Allergy/AdvReac Type Severity Reaction Status Date / Time clopidogrel Allergy Intermediate RASH Verified 05/14/20 18:48 Home Meds Home Medications Medication Instructions Recorded Confirmed albuterol sulfate 1 puff INHALATION Q6H PRN 05/14/20 05/14/20 apixaban [Eliquis] 5 mg PO BID 05/14/20 05/14/20 aspirin [Aspirin Low Dose] 81 mg PO QAM 05/14/20 05/14/20 atorvastatin [Lipitor] 40 mg PO HS 05/14/20 05/14/20 diltiazem HCl [Tiadylt ER] 180 mg PO QAM 05/14/20 05/14/20 magnesium 200 mg PO TID 05/14/20 05/14/20 metoprolol succinate [Toprol XL] 100 mg PO QAM 05/14/20 05/14/20 tamsulosin [Flomax] 0.4 mg PO QAM 05/14/20 05/14/20 Results & Data (ED) Vital Signs Vital Signs - 24 hr 05/14/20 16:54 05/14/20 17:32 05/14/20 18:01 Temperature 36.5 C Temperature Source Oral Pulse Rate 73 68 Pulse Rate [Apical] 80 Pulse Rate from SpO2 Sensor 70 Respiratory Rate 22 18 20 Respiratory Effort / Characteristics Non-Labored Spontaneous Blood Pressure 120/73 128/65 Blood Pressure [Right Arm] 121/65 Blood Pressure Mean 88 97 Blood Pressure Mean [Right Arm] 83 Blood Pressure Position Sitting Pulse Oximetry 94 97 97 Oxygen Delivery Method Room Air Room Air Room Air Sepsis Recent Fever Within 48 Hours No Sepsis New/Unexplained Change in Mental Status No Sepsis Action Taken by Nursing No Action Required 05/14/20 19:00 Temperature Temperature Source Pulse Rate Pulse Rate [Apical] Pulse Rate from SpO2 Sensor 81 Respiratory Rate Respiratory Effort / Characteristics Blood Pressure 134/71 Blood Pressure [Right Arm] Blood Pressure Mean 90 Blood Pressure Mean [Right Arm] Blood Pressure Position Pulse Oximetry 98 Oxygen Delivery Method Room Air Sepsis Recent Fever Within 48 Hours Sepsis New/Unexplained Change in Mental Status Sepsis Action Taken by [facility] Living Medications Current Medication List: was personally reviewed by me Laboratory Data Attestation: I reviewed the patient's lab results. Result diagrams: 05/14/20 17:24 05/14/20 17:24 Lab Results 05/14/20 05/14/20 05/14/20 Range/Units 17:24 17:24 17:24 WBC 9.98 (4.8-10.8) K/uL RBC 3.56 L (4.7-6.1) M/uL Hgb 10.5 L (14.0-18.0) g/dL POC Hgb (14.0-18.0) g/dl Hct 29.4 L (42-52) % POC Hct (42-52) % MCV 82.6 (80-100) fL MCH 29.5 (25-34) pg MCHC 35.7 (32-36) g/dL Plt Count 167 (130-400) K/uL Immature Gran % (Auto) 0.3 % Neut % (Auto) 78.3 % Lymph % (Auto) 14.0 % [place] % (Auto) 6.3 % Eos % (Auto) 0.9 % Baso % (Auto) 0.2 % Neut # (Auto) 7.81 H (1.4-6.5) K/uL Lymph # (Auto) 1.40 (1.2-3.4) K/uL [place] # (Auto) 0.63 H (0.11-0.59) K/uL Eos # (Auto) 0.09 (0-0.5) K/uL Baso # (Auto) 0.02 (0-0.2) K/uL Immature Gran # (Auto) 0.03 H (0.00-0.02) K/uL PT 10.9 (9.0-12.0) Seconds INR 1.0 (0.9-1.1) APTT 26.6 (21.0-31.0) Seconds PTT Ratio 1.0 VBG pH (7.36-7.41) VBG pCO2 (38-50) mmHg VBG pO2 mmHg VBG HCO3 mmol/L VBG O2 Saturation % VBG Base Excess mEq/L Barometric Pressure mm/Hg POC Sodium (135-144) mmol/L Sodium 123 L (136-145) mmol/L POC Potassium (3.3-5.0) mmol/L Potassium 4.9 (3.5-5.1) mmol/L POC Chloride (101-112) mmol/L Chloride 84 L (98-107) mmol/L Carbon Dioxide 27 (21-32) mmol/L POC Total CO2 (24-31) mmol/L Anion Gap 12.0 H (3-11) POC Anion Gap (16-25) mmol/L POC BUN (7-18) mg/dl BUN 58 H (7-18) mg/dl Creatinine 2.65 H (0.6-1.4) mg/dl POC Creatinine (0.6-1.3) mg/dl Est Cr Clr Drug Dosing 28.5 ml/min Est GFR ( Amer) 26.5 Est GFR (Non-Af Amer) 22.9 BUN/Creatinine Ratio 21.9 H (10-20) Glucose 753 H* (70-99) mg/dl POC Glucose (other) (70-99) mg/dl Lactate (0.4-2.0) mmol/L Calcium 9.2 (8.5-10.1) mg/dl POC Ioniz Calcium Z[place] (1.12-1.32) mmol/l Magnesium 2.6 H (1.8-2.4) mg/dl Total Bilirubin 1.0 (0.2-1) mg/dl AST 12 L (15-37) U/L ALT 14 (12-78) U/L Alkaline Phosphatase 118 H (45-117) U/L Total Creatine Kinase 108 (39-308) U/L Troponin I 0.015 (0-0.045) ng/ml Total Protein 7.1 (6.4-8.2) gm/dl Albumin 3.3 L (3.4-5.0) gm/dl Globulin 3.8 (2.5-4.0) gm/dl Albumin/Globulin Ratio 0.9 (0.9-2) Beta-Hydroxybutyric Acd 4.09 H (0.2-2.81) mg/dl TSH 2.320 (0.300-4.500) uIu/ml Urine Color Urine Appearance (Clear) Urine pH (4.5-7.5) Ur Specific [place] (1.000-1.030) Urine Protein (Negative) Urine Glucose (UA) (Negative) Urine Ketones (Negative) Urine Blood (Negative) Urine Nitrite (Negative) Urine Bilirubin (Negative) Urine Urobilinogen (Negative) Ur Leukocyte Esterase (Negative) 05/14/20 05/14/2020 Range/Units 17:24 17:24 17:33 WBC (4.8-10.8) K/uL RBC (4.7-6.1) M/uL Hgb (14.0-18.0) g/dL POC Hgb 10.2 L (14.0-18.0) g/dl Hct (42-52) % POC Hct 30 L (42-52) % MCV (80-100) fL MCH (25-34) pg MCHC (32-36) g/dL Plt Count (130-400) K/uL Immature Gran % (Auto) % Neut % (Auto) % Lymph % (Auto) % [place] % (Auto) % Eos % (Auto) % Baso % (Auto) % Neut # (Auto) (1.4-6.5) K/uL Lymph # (Auto) (1.2-3.4) K/uL [place] # (Auto) (0.11-0.59) K/uL Eos # (Auto) (0-0.5) K/uL Baso # (Auto) (0-0.2) K/uL Immature Gran # (Auto) (0.00-0.02) K/uL PT (9.0-12.0) Seconds INR (0.9-1.1) APTT (21.0-31.0) Seconds PTT Ratio VBG pH 7.41 (7.36-7.41) VBG pCO2 44 (38-50) mmHg VBG pO2 49 mmHg VBG HCO3 27 mmol/L VBG O2 Saturation 82.4 % VBG Base Excess 2.4 mEq/L Barometric Pressure 734.5 mm/Hg POC Sodium 121 L (135-144) mmol/L Sodium (136-145) mmol/L POC Potassium 5.0 (3.3-5.0) mmol/L Potassium (3.5-5.1) mmol/L POC Chloride 83 L (101-112) mmol/L Chloride (98-107) mmol/L Carbon Dioxide (21-32) mmol/L POC Total CO2 25 (24-31) mmol/L Anion Gap (3-11) POC Anion Gap 18.0 (16-25) mmol/L POC BUN 51 H (7-18) mg/dl BUN (7-18) mg/dl Creatinine (0.6-1.4) mg/dl POC Creatinine 2.2 H (0.6-1.3) mg/dl Est Cr Clr Drug Dosing ml/min Est GFR ( Amer) Est GFR (Non-Af Amer) BUN/Creatinine Ratio (10-20) Glucose (70-99) mg/dl POC Glucose (other) > 700 H* (70-99) mg/dl Lactate 1.7 (0.4-2.0) mmol/L Calcium (8.5-10.1) mg/dl POC Ioniz Calcium [place] 1.17 (1.12-1.32) mmol/l Magnesium (1.8-2.4) mg/dl Total Bilirubin (0.2-1) mg/dl AST (15-37) U/L ALT (12-78) U/L Alkaline Phosphatase (45-117) U/L Total Creatine Kinase (39-308) U/L Troponin I (0-0.045) ng/ml Total Protein (6.4-8.2) gm/dl Albumin (3.4-5.0) gm/dl Globulin (2.5-4.0) gm/dl Albumin/Globulin Ratio (0.9-2) Beta-Hydroxybutyric Acd (0.2-2.81) mg/dl TSH (0.300-4.500) uIu/ml Urine Color Urine Appearance (Clear) Urine pH (4.5-7.5) Ur Specific [place] (1.000-1.030) Urine Protein (Negative) Urine Glucose (UA) (Negative) Urine Ketones (Negative) Urine Blood (Negative) Urine Nitrite (Negative) Urine Bilirubin (Negative) Urine Urobilinogen (Negative) Ur Leukocyte Esterase (Negative) 05/14/20 Range/Units 18:45 WBC (4.8-10.8) K/uL RBC (4.7-6.1) M/uL Hgb (14.0-18.0) g/dL POC Hgb (14.0-18.0) g/dl Hct (42-52) % POC Hct (42-52) % MCV (80-100) fL MCH (25-34) pg MCHC (32-36) g/dL Plt Count (130-400) K/uL Immature Gran % (Auto) % Neut % (Auto) % Lymph % (Auto) % [place] % (Auto) % Eos % (Auto) % Baso % (Auto) % Neut # (Auto) (1.4-6.5) K/uL Lymph # (Auto) (1.2-3.4) K/uL [place] # (Auto) (0.11-0.59) K/uL Eos # (Auto) (0-0.5) K/uL Baso # (Auto) (0-0.2) K/uL Immature Gran # (Auto) (0.00-0.02) K/uL PT (9.0-12.0) Seconds INR (0.9-1.1) APTT (21.0-31.0) Seconds PTT Ratio VBG pH (7.36-7.41) VBG pCO2 (38-50) mmHg VBG pO2 mmHg VBG HCO3 mmol/L VBG O2 Saturation % VBG Base Excess mEq/L Barometric Pressure mm/Hg POC Sodium (135-144) mmol/L Sodium (136-145) mmol/L POC Potassium (3.3-5.0) mmol/L Potassium (3.5-5.1) mmol/L POC Chloride (101-112) mmol/L Chloride (98-107) mmol/L Carbon Dioxide (21-32) mmol/L POC Total CO2 (24-31) mmol/L Anion Gap (3-11) POC Anion Gap (16-25) mmol/L POC BUN (7-18) mg/dl BUN (7-18) mg/dl Creatinine (0.6-1.4) mg/dl POC Creatinine (0.6-1.3) mg/dl Est Cr Clr Drug Dosing ml/min Est GFR ( Amer) Est GFR (Non-Af Amer) BUN/Creatinine Ratio (10-20) Glucose (70-99) mg/dl POC Glucose (other) (70-99) mg/dl Lactate (0.4-2.0) mmol/L Calcium (8.5-10.1) mg/dl POC Ioniz Calcium [place] (1.12-1.32) mmol/l Magnesium (1.8-2.4) mg/dl Total Bilirubin (0.2-1) mg/dl AST (15-37) U/L ALT (12-78) U/L Alkaline Phosphatase (45-117) U/L Total Creatine Kinase (39-308) U/L Troponin I (0-0.045) ng/ml Total Protein (6.4-8.2) gm/dl Albumin (3.4-5.0) gm/dl Globulin (2.5-4.0) gm/dl Albumin/Globulin Ratio (0.9-2) Beta-Hydroxybutyric Acd (0.2-2.81) mg/dl TSH (0.300-4.500) uIu/ml Urine Color Yellow Urine Appearance Clear (Clear) Urine pH 5.5 (4.5-7.5) Ur Specific [place] 1.020 (1.000-1.030) Urine Protein Negative (Negative) Urine Glucose (UA) 3+ H (Negative) Urine Ketones Negative (Negative) Urine Blood Negative (Negative) Urine Nitrite Negative (Negative) Urine Bilirubin Negative (Negative) Urine Urobilinogen Negative (Negative) Ur Leukocyte Esterase Negative (Negative) Administered Medications Apixaban (Apixaban 5 Mg Tablet) 5 mg PO BID BARBARA Stop: 06/13/20 20:59 Last Admin: 05/14/20 21:25 Dose: 5 mg Documented by: [id number] Atorvastatin Calcium (Atorvastatin 40 Mg Tab) 40 mg PO HS BARBARA Stop: 06/13/20 20:59 Last Admin: 05/14/20 21:25 Dose: 40 mg Documented by: [id number] Sodium Chloride (Nss 1000ml) 1,000 mls @ 125 mls/hr IV .Q8H BARBARA Stop: 06/13/20 20:29 Last Admin: 05/14/20 20:43 Dose: 125 mls/hr Documented by: [id number] Insulin Human Regular 250 (units/ Sodium Chloride) 250 mls @ 10 mls/hr IV .Q24H BARBARA; Protocol Stop: 06/13/20 20:44 Last Admin: 05/14/20 21:23 Dose: 10 units/hr, 10 mls/hr Documented by: [id number] Cosigned by: [id number] Miscellaneous (Pending 1/2nss+20meq Kcl Ivf) 1 ea N/A Q2H BARBARA Stop: 06/13/20 20:29 Last Admin: 05/14/20 20:55 Dose: Not Given Documented by: [id number] Miscellaneous (Pending D5 1/2ns+20meq Kcl Ivf) 1 ea N/A Q2H BARBARA Stop: 06/13/20 20:29 Last Admin: 05/14/20 20:55 Dose: Not Given Documented by: [id number] Discontinued Medications Sodium Chloride (Nss) 500 mls @ 999 mls/hr IV .Q31M BARBARA Stop: 05/14/20 17:45 Last Infusion: 05/14/20 18:04 Dose: 0 mls/hr Documented by: [id number] Admin: 05/14/20 17:33 Dose: 999 mls/hr Documented by: [id number] Sodium Chloride (Nss 1000ml) 1,000 mls @ 999 mls/hr IV .Q1H1M ONE Stop: 05/14/20 19:15 Last Infusion: 05/14/20 19:48 Dose: 0 mls/hr Documented by: [id number] Admin: 05/14/20 18:47 Dose: 999 mls/hr Documented by: [id number] Insulin Human Regular (Novolin-R Insulin Per Unit Charge) 10 units IV NOW STA Stop: 05/14/20 18:16 Last Admin: 05/14/20 18:47 Dose: 10 units Documented by: [id number] Cosigned by: [id number] Miscellaneous (Hhs Goal Range 250-350 Mg/Dl) 1 ea N/A ONE ONE Stop: 05/14/20 20:31 Last Admin: 05/14/20 21:24 Dose: Not Given Documented by: [id number] Imaging Data Radiologist's Impression: XR chest 1V portable HISTORY: weakness COMPARISON: Chest CT 12/09/2012. FINDINGS: There are low lung volumes. The cardiac silhouette is mildly enlarged. This remains unchanged. Stable left hilar prominence. No pleural effusions. No pneumothorax. The lungs are clear. IMPRESSION: No significant change compared to the prior study. No acute process. ACT 112: Negative or not required by law. Electronically signed by: Arthur Ward M.D. 05/14/2020 5:44 PM Dictated: 05/14/201741 Transcribed: 05/14/201741 Blood Pressure Blood Pressure Findings: Elevated blood pressure Blood Pressure Disposition: further management by hospitalist Discharge Plan Visit Data Chief Complaint: Hyperglycemia Stated Complaint: BLOOD SUGAR IS HIGH, DR REFERRED OVER ED Provider: Cory Jimenez Discharge Problem: Acute hyperglycemia, Afib, Weakness, Acute kidney injury Patient Disposition: Admitted As Inpatient Condition: Good Discharge Instructions Interventions: ED Discharge Assessment Last Done: 05/14/20 20:22
[2020-05-14 17:38] LABS: Base Excess VBG 2.4 mEq/L; Oxygen Saturation VBG 82.4 %; pH VBG 7.41 (7.36-7.41)
[2020-05-14 17:45] LABS: iSTAT Blood Urea Nitrogen 51 mg/dl (7-18); iSTAT Carbon Dioxide 25 mmol/L (24-31); iSTAT Chloride 83 mmol/L (101-112); iSTAT Creatinine 2.2 mg/dl (0.6-1.3); iSTAT Glucose > 700 mg/dl (70-99); iSTAT Hematocrit 30 % (42-52); iSTAT Hemoglobin 10.2 g/dl (14.0-18.0); iSTAT Ionized Calcium 1.17 mmol/l (1.12-1.32); iSTAT Sodium 121 mmol/L (135-144)
--- NOTE | 2020-05-14 17:45 | XRay Report ---
XR chest 1V portable HISTORY: weakness COMPARISON: Chest CT 12/09/2012. FINDINGS: There are low lung volumes. The cardiac silhouette is mildly enlarged. This remains unchang ed. Stable left hilar prominence. No pleural effusions. No pneumothorax. The lungs are clear. IMPRESSION: No significant change compared to the prior study. No acute process. ACT 112: Negative or not required by law. Electronically signed by: Arthur Ward M.D. 05/14/2020 5:44 PM
[2020-05-14 17:49] LABS: Partial Thromboplastin Time 26.6 Seconds (21.0-31.0); Prothrombin Time 10.9 Seconds (9.0-12.0)
[2020-05-14 18:01] LABS: Albumin Globulin Ratio 0.9 (0.9-2); Albumin Level 3.3 gm/dl (3.4-5.0); BUN Creatinine Ratio 21.9 (10-20); Beta-Hydroxybutyrate 4.09 mg/dl (0.2-2.81); Calcium 9.2 mg/dl (8.5-10.1); Creatinine Clr Calc Pharmacy 28.5 ml/min; Est GFR (African American) 26.5; Est GFR (Non-African American) 22.9; Globulin 3.8 gm/dl (2.5-4.0); Magnesium 2.6 mg/dl (1.8-2.4); Potassium 4.9 mmol/L (3.5-5.1); Total Protein 7.1 gm/dl (6.4-8.2)
[2020-05-14 18:07] LABS: Thyroid Stimulating Hormone 2.32 uIu/ml (0.300-4.500); Troponin I 0.015 ng/ml (0-0.045)
[2020-05-14 18:11] LABS: Basophils # (auto) 0.02 K/uL (0-0.2); Basophils % (auto) 0.2 %; Eosinophils # (auto) 0.09 K/uL (0-0.5); Eosinophils % (auto) 0.9 %; Hematocrit (blood only) 29.4 % (42-52); Hemoglobin 10.5 g/dL (14.0-18.0); Immature Granulocytes # (auto) 0.03 K/uL (0.00-0.02); Immature Granulocytes % (auto) 0.3 %; Mean Corpuscular Hemoglobin 29.5 pg (25-34); Mean Corpuscular Hgb Conc 35.7 g/dL (32-36); Mean Corpuscular Volume 82.6 fL (80-100); Monocytes # (auto) 0.63 K/uL (0.11-0.59); Monocytes % (auto) 6.3 %; Neutrophils # (auto) 7.81 K/uL (1.4-6.5); Neutrophils % (auto) 78.3 %; Platelet Count 167 K/uL (130-400); Red Blood Count 3.56 M/uL (4.7-6.1); White Blood Count 9.98 K/uL (4.8-10.8)
[2020-05-14] MEDS ORDERED: NovoLIN-R INSULIN PER UNIT CHARGE IV STA (18:15)
[2020-05-14] MEDS ORDERED: SODIUM CHLORIDE 0.9% 1000ML 1,000 ML IV ONE (18:15)
[2020-05-14 19:09] LABS: Appearance Urine Clear (Clear); Bilirubin Urine Negative (Negative); Blood Urine Negative (Negative); Color Urine Yellow; Glucose Urine UA 3+ (Negative); Ketones Urine Negative (Negative); Leukocyte Esterase Urine Negative (Negative); Nitrite Urine Negative (Negative); Protein Urine Negative (Negative); Urobilinogen Urine Negative (Negative); pH Urine 5.5 (4.5-7.5)
--- NOTE | 2020-05-14 19:14 | History & Physical Report ---
Date of Service May 14, 2020 Assessment & Plan (1) Uncontrolled type II diabetes mellitus: (2) Afib: (3) CAD (coronary artery disease): (4) HTN (hypertension): (5) COPD (chronic obstructive pulmonary disease): (6) Esophageal reflux: (7) Hyperlipidemia: (8) Prostate cancer: (9) Hyponatremia: (10) Dehydration: (11) History of coronary artery bypass graft: IVFs, Hold Lasix, Insulin gtt, Carb consistent diet, Tele, inpatient, continue op meds where appropriate and monitor daily labs ROS-No Headache, No Visual Changes, No Nausea, No Vomiting, No Fever, No Chills, No Neck Pain or Stiffness, No Chest Pain, No Palpitations, No SOB, No ESCAMILLA, No Cough, No Sputum, No Wheezing, No Abdominal Pain, No Diarrhea, No Hematemesis, No Hemoptysis, No Unexpected Weight Loss, No Flank pain, No Melena, No Hematochezia, No Frequency, No Urgency, No Burning, No Hematuria, No Rashes, No Diaphoresis. Appetite is Normal, c/o Polyuria, weakness, polydipsia Physical Exam Gen-AAO x 3, NAD, Afebrile, obese Head-NCAT, EOMI, PERRLA, Anicteric Sclera, No Posterior Pharyngeal Erythema Neck-Supple, No JVD, No Thyromegaly, No Masses, No LAD, No Bruits Lungs-Clear to Auscultation Bilaterally, No Rales, No Rhonchi, Mild Wheezing, No Crepitus Chest-Irreg/Irreg No S4, +S1, +S2, No S3, No Murmurs, No Rubs, No Gallops, +Ectopy Abdomen-Soft, Bowel Sounds Present, Non Tender, Non Distended, No Hepatomegaly, No Splenomegaly, No Palpable Masses, No Rebound, No Rigidity, No Guarding Musculoskeletal-Full Range of Motion Bilaterally, No CVAT Extremities-No Cyanosis, No Clubbing, No Edema, Multiple excoriations Nuero-Cranial Nerves II-XII grossly intact, Motor WNL, DTRs WNL, Strength WNL, Non Focal Psych-Normal Mood History of Present Illness Primary Care Provider: Julita Mittal, DO 75 YO male c PMH of DM II, HTN, Obesity, AFIB, CAD, and COPD went to his PCPs office today and had bloodwork done. He is to have ablation +-PPM by Dr Kate on Wed here at [facility]. He was at Dr Dunn's office when she found out what his bloodwork showed. A BS in the 750 Range. Over the last 2 he lost a considerable amount of weight and he thought his DM was gone. Thus he was not on a BS control regimen. He c/o Polydypsia, dry mouth, and weakness. He also notes polyuria as well. He may have CKD, but is not sure. 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, Allergies Allergy/AdvReac Type Severity Reaction Status Date / Time clopidogrel Allergy Intermediate RASH Verified 05/14/20 18:48 Home Medications Home Medications Medication Instructions Recorded Confirmed Type albuterol sulfate 1 puff INHALATION Q6H PRN 05/14/20 05/14/20 History apixaban [Eliquis] 5 mg PO BID 05/14/20 05/14/20 History aspirin [Aspirin Low Dose] 81 mg PO QAM 05/14/20 05/14/20 History atorvastatin [Lipitor] 40 mg PO HS 05/14/20 05/14/20 History diltiazem HCl [Tiadylt ER] 180 mg PO QAM 05/14/20 05/14/20 History magnesium 200 mg PO TID 05/14/20 05/14/20 History metoprolol succinate [Toprol XL] 100 mg PO QAM 05/14/20 05/14/20 History tamsulosin [Flomax] 0.4 mg PO QAM 05/14/20 05/14/20 History Past Med/Surg History Medical History (Updated 05/14/20 @ 19:13 by Jacky Thomas DO) Atrial fibrillation COPD (chronic obstructive pulmonary disease) Coronary artery disease Esophageal reflux Hyperlipidemia Hypertension Prostate cancer Type 2 diabetes mellitus Surgical History (Updated 05/14/20 @ 19:06 by Jacky Thomas DO) History of appendectomy History of coronary artery bypass graft Social History Smoking Status: Former smoker Preferred Language: Bahamian Feels Safe at Home: Yes Results & Data Results & Data ([facility]) Vital Signs (Past 12 Hours) Vital Signs Temp Pulse Pulse Resp BP BP Pulse Ox 05/14/20 18:01 68 20 128/65 97 05/14/20 17:32 80 18 121/65 97 05/14/20 16:54 36.5 C 73 22 120/73 94 Allergies clopidogrel Allergy (Intermediate, Verified 05/14/20 18:48) RASH Height/Weight/Isolation Height 5 ft 7 in Weight 103.6 kg CBC 05/14/20 05/14/20 05/14/20 17:24 17:24 17:24 WBC 9.98 RBC 3.56 L Hgb 10.5 L POC Hgb Hct 29.4 L POC Hct MCV 82.6 MCH 29.5 MCHC 35.7 Plt Count 167 Immature Gran % (Auto) 0.3 Neut % (Auto) 78.3 Lymph % (Auto) 14.0 [place] % (Auto) 6.3 Eos % (Auto) 0.9 Baso % (Auto) 0.2 Neut # (Auto) 7.81 H Lymph # (Auto) 1.40 [place] # (Auto) 0.63 H Eos # (Auto) 0.09 Baso # (Auto) 0.02 Immature Gran # (Auto) 0.03 H PT 10.9 INR 1.0 APTT 26.6 PTT Ratio 1.0 VBG pH VBG pCO2 VBG pO2 VBG HCO3 VBG O2 Saturation VBG Base Excess Barometric Pressure POC Sodium Sodium 123 L POC Potassium Potassium 4.9 POC Chloride Chloride 84 L Carbon Dioxide 27 POC Total CO2 Anion Gap 12.0 H POC Anion Gap POC BUN BUN 58 H Creatinine 2.65 H POC Creatinine Est Cr Clr Drug Dosing 28.5 Est GFR ( Amer) 26.5 Est GFR (Non-Af Amer) 22.9 BUN/Creatinine Ratio 21.9 H Glucose 753 H* POC Glucose (other) Lactate Calcium 9.2 POC Ioniz Calcium Zuleima Magnesium 2.6 H Total Bilirubin 1.0 AST 12 L ALT 14 Alkaline Phosphatase 118 H Total Creatine Kinase 108 Troponin I 0.015 Total Protein 7.1 Albumin 3.3 L Globulin 3.8 Albumin/Globulin Ratio 0.9 Beta-Hydroxybutyric Acd 4.09 H TSH 2.320 Urine Color Urine Appearance Urine pH Ur Specific Merrill Urine Protein Urine Glucose (UA) Urine Ketones Urine Blood Urine Nitrite Urine Bilirubin Urine Urobilinogen Ur Leukocyte Esterase 05/14/20 05/14/20 05/14/20 17:24 17:24 17:33 WBC RBC Hgb POC Hgb 10.2 L Hct POC Hct 30 L MCV MCH MCHC Plt Count Immature Gran % (Auto) Neut % (Auto) Lymph % (Auto) [place] % (Auto) Eos % (Auto) Baso % (Auto) Neut # (Auto) Lymph # (Auto) [place] # (Auto) Eos # (Auto) Baso # (Auto) Immature Gran # (Auto) PT INR APTT PTT Ratio VBG pH 7.41 VBG pCO2 44 VBG pO2 49 VBG HCO3 27 VBG O2 Saturation 82.4 VBG Base Excess 2.4 Barometric Pressure 734.5 POC Sodium 121 L Sodium POC Potassium 5.0 Potassium POC Chloride 83 L Chloride Carbon Dioxide POC Total CO2 25 Anion Gap POC Anion Gap 18.0 POC BUN 51 H BUN Creatinine POC Creatinine 2.2 H Est Cr Clr Drug Dosing Est GFR ( Amer) Est GFR (Non-Af Amer) BUN/Creatinine Ratio Glucose POC Glucose (other) > 700 H* Lactate 1.7 Calcium POC Ioniz Calcium Zuleima 1.17 Magnesium Total Bilirubin AST ALT Alkaline Phosphatase Total Creatine Kinase Troponin I Total Protein Albumin Globulin Albumin/Globulin Ratio Beta-Hydroxybutyric Acd TSH Urine Color Urine Appearance Urine pH Ur Specific [place]ill Urine Protein Urine Glucose (UA) Urine Ketones Urine Blood Urine Nitrite Urine Bilirubin Urine Urobilinogen Ur Leukocyte Esterase 05/14/20 18:45 WBC RBC Hgb POC Hgb Hct POC Hct MCV MCH MCHC Plt Count Immature Gran % (Auto) Neut % (Auto) Lymph % (Auto) [place] % (Auto) Eos % (Auto) Baso % (Auto) Neut # (Auto) Lymph # (Auto) [place] # (Auto) Eos # (Auto) Baso # (Auto) Immature Gran # (Auto) PT INR APTT PTT Ratio VBG pH VBG pCO2 VBG pO2 VBG HCO3 VBG O2 Saturation VBG Base Excess Barometric Pressure POC Sodium Sodium POC Potassium Potassium POC Chloride Chloride Carbon Dioxide POC Total CO2 Anion Gap POC Anion Gap POC BUN BUN Creatinine POC Creatinine Est Cr Clr Drug Dosing Est GFR ( Amer) Est GFR (Non-Af Amer) BUN/Creatinine Ratio Glucose POC Glucose (other) Lactate Calcium POC Ioniz Calcium Zuleima Magnesium Total Bilirubin AST ALT Alkaline Phosphatase Total Creatine Kinase Troponin I Total Protein Albumin Globulin Albumin/Globulin Ratio Beta-Hydroxybutyric Acd TSH Urine Color Yellow Urine Appearance Clear Urine pH 5.5 Ur Specific Merrill 1.020 Urine Protein Negative Urine Glucose (UA) 3+ H Urine Ketones Negative Urine Blood Negative Urine Nitrite Negative Urine Bilirubin Negative Urine Urobilinogen Negative Ur Leukocyte Esterase Negative Chemistry 05/14/20 17:24 Sodium 123 L Potassium 4.9 Chloride 84 L Carbon Dioxide 27 Anion Gap 12.0 H BUN 58 H Creatinine 2.65 H Glucose 753 H* Urinalysis 05/14/20 18:45 Urine Color Yellow Urine Appearance Clear Urine pH 5.5 Ur Specific Merrill 1.020 Urine Protein Negative Urine Glucose (UA) 3+ H Urine Ketones Negative Urine Blood Negative Urine Nitrite Negative Urine Bilirubin Negative
[2020-05-14] MEDS ORDERED: ONDANSETRON INJ 2 MG/ML 2 ML VIAL IV PRN (20:30)
[2020-05-14] MEDS ORDERED: HHS GOAL RANGE 250-350 mg/dl ONE (20:30)
[2020-05-14] MEDS ORDERED: ALBUTEROL HFA 8 GM INHALER INH PRN (20:30)
[2020-05-14] MEDS ORDERED: SODIUM CHLORIDE 0.9% 1000ML 1,000 ML IV SCH (20:30)
[2020-05-14] MEDS ORDERED: PHARMACY GLYCEMIC MGMT CONSULT PRN (20:35)
[2020-05-14] MEDS ORDERED: INSULIN REGULAR 250 UNITS in SODIUM CHLORIDE 0.9% 247.5 ML IV SCH (20:45)
[2020-05-14] MEDS: PENDING D5 1/2NS+20mEq KCL IVF SCH ×2 (20:55→22:38)
[2020-05-14] MEDS: PENDING 1/2NSS+20mEq KCL IVF SCH ×2 (20:55→22:38)
[2020-05-14] MEDS ORDERED: DEXTROSE 50% 50 ML SYRINGE IV PRN (21:00)
[2020-05-14] MEDS ORDERED: GLUCOSE 10 TABS/TUBE PO PRN (21:00)
[2020-05-14] MEDS ORDERED: NON-FORMULARY MEDICATION (Magnesium 200 MG) PO SCH (21:00)
[2020-05-14] MEDS ORDERED: GLUCOSE 40% GEL 15 GM TUBE PO PRN (21:00)
[2020-05-14] MEDS ORDERED: GLUCAGON FOR INJ 1 MG VIAL IM PRN (21:00)
[2020-05-14 21:15] LABS: Magnesium 2.8 mg/dl (1.8-2.4); Phosphorus 4.8 mg/dl (2.5-4.9)
[2020-05-14] MEDS: APIXABAN 5 MG TABLET PO SCH (21:25)
[2020-05-14] MEDS: ATORVASTATIN 40 MG TAB PO SCH (21:25)
[2020-05-14] MEDS: INSULIN ASPART 100 UNITS/ML 3 ML PEN SC SCH (22:33)
[2020-05-14] MEDS: D5W AND 1/2NSS + 20MEQ KCL 20 MEQ/1,000 ML BAG IV SCH (23:55)
[2020-05-15 05:27] LABS: Hematocrit (blood only) 28.4 % (42-52); Hemoglobin 9.5 g/dL (14.0-18.0); Mean Corpuscular Hemoglobin 28.7 pg (25-34); Mean Corpuscular Hgb Conc 33.5 g/dL (32-36); Mean Corpuscular Volume 85.8 fL (80-100); Mean Platelet Volume 10.6 fL (7.4-10.4); Platelet Count 176 K/uL (130-400); RDW Coefficient of Variation 14.6 % (11.5-14.5); RDW Standard Deviation 45.1 fL (36.4-46.3); Red Blood Count 3.31 M/uL (4.7-6.1); White Blood Count 9.49 K/uL (4.8-10.8)
[2020-05-15 05:40] LABS: INR 1.1 (0.9-1.1); Prothrombin Time 11.1 Seconds (9.0-12.0)
[2020-05-15 06:53] LABS: Estimated Average Glucose 372 mg/dl; Hemoglobin A1C 14.6 % (4.5-5.6)
[2020-05-15 07:01] LABS: Albumin Globulin Ratio 0.9 (0.9-2); Albumin Level 2.9 gm/dl (3.4-5.0); BUN Creatinine Ratio 26.4 (10-20); Bilirubin,Total 0.7 mg/dl (0.2-1); Creatinine Clr Calc Pharmacy 39.1 ml/min; Est GFR (African American) 38.7; Est GFR (Non-African American) 33.4; Globulin 3.4 gm/dl (2.5-4.0); Magnesium 2.6 mg/dl (1.8-2.4); Phosphorus 4.2 mg/dl (2.5-4.9); Potassium 3.7 mmol/L (3.5-5.1); Total Protein 6.3 gm/dl (6.4-8.2)
[2020-05-15] MEDS ORDERED: INSULIN GLARGINE SOLOSTAR 100 UNITS/ML 3 ML PEN SC ONE ×2 (07:30→21:00)
[2020-05-15] MEDS: D5W AND 1/2NSS + 20MEQ KCL 20 MEQ/1,000 ML BAG IV SCH (07:58)
[2020-05-15] MEDS ORDERED: POTASSIUM CHLORIDE 20 MEQ TABCR PO ONE (08:03)
[2020-05-15] MEDS: TAMSULOSIN HCL 0.4 MG CAP PO SCH (08:51)
[2020-05-15] MEDS: METOPROLOL SUCC 50MG EXT REL TAB PO SCH (08:51)
[2020-05-15] MEDS: dilTIAZem ER 180 MG CAPCR PO SCH (08:52)
[2020-05-15] MEDS: APIXABAN 5 MG TABLET PO SCH ×2 (08:52→20:40)
[2020-05-15] MEDS: ASPIRIN 81 MG ECTAB PO SCH (08:52)
[2020-05-15] MEDS: INSULIN ASPART 100 UNITS/ML 3 ML PEN SC SCH ×3 (09:00→20:43)
--- NOTE | 2020-05-15 11:40 | Pharmacy Report ---
Pharmacy Glycemic Short Note 2 - Date of Service May 15, 2020 - Glycemic Short BSG Results (Last 24 hours): 05/14/20 05/14/20 05/14/20 16:57 17:24 17:27 Glucose 753 H* POC Glucose > 600 H* > 600 H* POC Glucose (other) 05/14/20 05/14/20 05/14/20 17:33 19:36 19:39 Glucose POC Glucose 584 H* 526 H* POC Glucose (other) > 700 H* 05/14/20 05/14/20 05/14/20 21:11 21:12 22:28 Glucose POC Glucose 471 H* 467 H* 389 H* POC Glucose (other) 05/14/20 05/15/20 05/15/20 22:30 00:36 02:03 Glucose POC Glucose 387 H* 231 H 151 H POC Glucose (other) 05/15/20 05/15/20 05/15/20 03:07 04:19 04:51 Glucose 220 H POC Glucose 205 H 231 H POC Glucose (other) 05/15/20 05/15/20 05/15/20 06:21 07:11 08:14 Glucose POC Glucose 269 H 280 H 254 H POC Glucose (other) 05/15/20 05/15/20 09:17 10:11 Glucose POC Glucose 371 H* 324 H* POC Glucose (other) OUTPATIENT ANTIDIABETIC REGIMEN: * N/A * A1c = 14.6% on 05/15/20 ASSESSMENT: * 75 yo male admitted with HHS/Hyperglycemia/significant dehydration. Pt had pre-op blood work done for ablation which showed GLU of > 700 mg/dl. Pt is not currently taking any antidiabetic medications and endorsed a significant amount of weight loss making him think his DMT2 was gone. Pt with + symptoms of HHS including polydipsia, polyuria, dry mouth, and weakness. * Pt initiated on IV insulin infusion per protocol on admission. * Fluids per HHS protocol. * Pt tolerating PO intake this AM. * IV insulin infusion is being titrated based on BSG per protocol. IV insulin infusion rates running 2.4-6.8 units/hr * Will start the transition process of IV insulin to SQ basal bolus insulin regimen. Will start with high insulin resistance, weight based dosing of Lantus 50 units SQ x 1 dose. This is c/w IV insulin infusion rate of ~ 2.5 units/hr overnight while pt NPO. PLAN FOR INPATIENT GLYCEMIC CONTROL: * IV insulin infusion per HHS protocol * Initial goal range 250-350 mg/dl. * Decrease goal range to 140-180mg/dl this morning after 12 hrs of being on the insulin infusion * Basal insulin * Lantus 50 units SQ x 1 dose * Bolus insulin * NovoLog per scale ACHS or Q6hrs while NPO * Nutritional / Prandial insulin per carb ratio of 1 unit per 5 grams CHO consumed * Recommend removing dextrose from IVF to facilitate the transition process from IV to SQ. Pt is tolerating PO PLAN FOR DISCHARGE: * TBD- patient will need basal insulin + metformin +/- bolus insulin at discharge based on A1c of 14.6%
[2020-05-15 12:56] LABS: BUN Creatinine Ratio 25.9 (10-20); Calcium 9.6 mg/dl (8.5-10.1); Creatinine Clr Calc Pharmacy 40.6 ml/min; Est GFR (African American) 40.4; Est GFR (Non-African American) 34.9; Magnesium 2.4 mg/dl (1.8-2.4); Phosphorus 3.7 mg/dl (2.5-4.9)
[2020-05-15] MEDS: SODIUM CHLOR 0.45% + 20MEQ KCL 20 MEQ/1,000 ML BAG IV SCH ×2 (15:38→23:40)
[2020-05-15] MEDS ORDERED: INSULIN ASPART 100 UNITS/ML 3 ML PEN SC ONE ×2 (17:00)
[2020-05-15] MEDS ORDERED: DC IV INSULIN INFUSION 1 EA DEVI ONE (17:00)
[2020-05-15] MEDS: CARBOHYDRATES FOR HYPOGLYCEMIA PO PRN (17:50)
--- NOTE | 2020-05-15 19:03 | Hospitalist Progress Note ---
Date of Service May 15, 2020 Assessment & Plan (1) Diabetes mellitus type 2, uncontrolled: History of DM type 2 treated with oral agents in past. Oral agents discontinued last year because blood sugars were well controlled. (Sounds like patient was experiencing depression with anorexia after his .) Presented to ED with random glucose of 753. Hgb A1c = 14.6. Pharmacy consulted for glycemic management. Blood sugars improved with insulin infusion. Anticipated transition to SQ insulin later today. Will need training for insulin injection before DC. (2) Acute kidney injury: Serum creatinine 2.65 at time of admission. YANCY secondary to hyperglycemia with osmotic diuresis. Receiving IV fluids. Creatinine today = 1.87. Follow. (3) Hyponatremia: Serum sodium 123 at time of admission. Mostly due to pseudohyponatremia secondary to hyperglycemia. Corrected Na was 133. Na today = 134. Follow. (4) CAD (coronary artery disease): No anginal symptoms. Continue metoprolol and statin. (5) Atrial fibrillation: Continue rate control with metoprolol and dilitazem. Continue anticoagulation with apixaban. (6) Hypertension: Continue metoprolol and diltiazem. (7) COPD (chronic obstructive pulmonary disease): Pulmonary status stable. (8) DVT prophylaxis: Continue apixaban. (9) Discharge planning issues: Anticipated discharge to home. Family Medicine follow-up with Dr. Mittal. Admission and Anticipated Discharge Date Admission Date: May 14, 2020 Subjective Recheck for uncontrolled DM and other problems. Patient seen in their room around 1420. Blood sugars improved. Did not get much sleep last night due to insulin infusion with frequent BSG's. Polyuria & polydipsia improved. Review of Systems: Constitutional- no fever. Cardiac- no chest pain. Pulmonary- no cough or SOB. GI- no nausea, vomiting, diarrhea, melena, hematochezia. - no urinary symptoms. Otherwise, as noted above. Physical Exam Constitutional: no acute distress Respiratory: no respiratory distress Auscultation: lungs clear to auscult ation bilaterally Cardiovascular: Rate/Rhythm: + irregularly irregular Vessels: no JVD Extremities: no calf tenderness and no edema Gastrointestinal (Abdomen): normal bowel sounds, soft, nontender, no hepatosplenomegaly Musculoskeletal: Extremities: no cyanosis Skin: no rashes, warm and dry Psychiatric: Orientation: alert and oriented x 3 Results & Data Results & Data ([facility]) Vital Signs (Past 12 Hours) Vital Signs Temp Pulse Pulse Resp BP Pulse Ox 05/15/20 16:00 66 05/15/20 14:59 36.7 C 40 L 16 112/63 98 05/15/20 11:11 36.5 C 92 H 17 133/87 99 05/15/20 07:42 95 H 05/15/20 07:28 36.6 C 87 17 133/84 98 Laboratory Results 05/15/20 04:51 05/15/20 12:22
[2020-05-15] MEDS: ATORVASTATIN 40 MG TAB PO SCH (20:40)
[2020-05-15] MEDS: ACETAMINOPHEN 325 MG TAB PO PRN (21:20)
[2020-05-15 21:30] LABS: BUN Creatinine Ratio 24.7 (10-20); Calcium 9.1 mg/dl (8.5-10.1); Creatinine Clr Calc Pharmacy 35.8 ml/min; Est GFR (African American) 34.7; Magnesium 2.3 mg/dl (1.8-2.4); Potassium 4.5 mmol/L (3.5-5.1)
[2020-05-16] MEDS: CARBOHYDRATES FOR HYPOGLYCEMIA PO PRN (01:43)
[2020-05-16] MEDS ORDERED: INSULIN ASPART 100 UNITS/ML 3 ML PEN SC SCH (02:00)
[2020-05-16 06:53] LABS: Hematocrit (blood only) 28.4 % (42-52); Hemoglobin 9.5 g/dL (14.0-18.0); Mean Corpuscular Hemoglobin 29.2 pg (25-34); Mean Corpuscular Hgb Conc 33.5 g/dL (32-36); Mean Corpuscular Volume 87.4 fL (80-100); Mean Platelet Volume 10.3 fL (7.4-10.4); Platelet Count 175 K/uL (130-400); RDW Coefficient of Variation 15.1 % (11.5-14.5); RDW Standard Deviation 47.3 fL (36.4-46.3); Red Blood Count 3.25 M/uL (4.7-6.1); White Blood Count 8.48 K/uL (4.8-10.8)
[2020-05-16 07:32] LABS: BUN Creatinine Ratio 24.8 (10-20); Calcium 8.9 mg/dl (8.5-10.1); Creatinine Clr Calc Pharmacy 42.9 ml/min; Est GFR (African American) 42.6; Est GFR (Non-African American) 36.8; Potassium 4.4 mmol/L (3.5-5.1)
[2020-05-16 07:36] LABS: Ferritin 61.6 ng/ml (8-388)
[2020-05-16] MEDS: SODIUM CHLOR 0.45% + 20MEQ KCL 20 MEQ/1,000 ML BAG IV SCH (07:46)
[2020-05-16] MEDS: ASPIRIN 81 MG ECTAB PO SCH (07:55)
[2020-05-16] MEDS: METOPROLOL SUCC 50MG EXT REL TAB PO SCH (07:56)
[2020-05-16] MEDS: TAMSULOSIN HCL 0.4 MG CAP PO SCH (07:56)
[2020-05-16] MEDS: dilTIAZem ER 180 MG CAPCR PO SCH (07:58)
[2020-05-16] MEDS: INSULIN ASPART 100 UNITS/ML 3 ML PEN SC SCH ×4 (08:00→21:11)
[2020-05-16] MEDS: APIXABAN 5 MG TABLET PO SCH ×3 (08:06→20:21)
[2020-05-16] MEDS: INSULIN GLARGINE SOLOSTAR 100 UNITS/ML 3 ML PEN SC SCH (10:24)
--- NOTE | 2020-05-16 10:29 | Pharmacy Report ---
Pharmacy Glycemic Short Note 2 - Date of Service May 16, 2020 - Glycemic Short BSG Results (Last 24 hours): 05/14/20 05/14/20 05/14/20 16:57 17:27 19:36 Glucose POC Glucose > 600 H* > 600 H* 584 H* 05/14/20 05/14/20 05/14/20 19:39 21:11 21:12 Glucose POC Glucose 526 H* 471 H* 467 H* 05/14/20 05/14/20 05/15/20 22:28 22:30 00:36 Glucose POC Glucose 389 H* 387 H* 231 H 05/15/20 05/15/20 05/15/20 02:03 03:07 04:19 Glucose POC Glucose 151 H 205 H 231 H 05/15/20 05/15/20 05/15/20 06:21 07:11 08:14 Glucose POC Glucose 269 H 280 H 254 H 05/15/20 05/15/20 05/15/20 09:17 10:11 12:06 Glucose POC Glucose 371 H* 324 H* 205 H 05/15/20 05/15/20 05/15/20 12:22 13:18 14:43 Glucose 165 H POC Glucose 242 H 160 H 05/15/20 05/15/20 05/15/20 15:42 16:03 16:41 Glucose POC Glucose 134 H 128 H 108 H 05/15/20 05/15/20 05/15/20 17:45 18:04 18:57 Glucose POC Glucose 64 L* 168 H 243 H 05/15/20 05/15/20 05/16/20 20:01 20:58 01:39 Glucose 149 H POC Glucose 219 H 57 L* 05/16/20 05/16/20 05/16/20 01:41 02:00 05:50 Glucose POC Glucose 65 L* 106 H 122 H 05/16/20 05/16/20 06:25 07:54 Glucose 125 H POC Glucose 146 H OUTPATIENT ANTIDIABETIC REGIMEN: * N/A * A1c = 14.6% on 05/15/20 ASSESSMENT: 05/16: * Pt has received 112 units of SQ insulin + 86 units from the IV insulin infusion * 75 units of basal insulin with Lantus * 37 units of prandial insulin with NovoLog * 86 units of IV insulin infusion (serving as CF insulin) * Pt experienced two events of HYPOglycemia. * The first (64mg/dl) was at 1745 yesterday evening. Most likely d/t removing dextrose IVF, weight based bolus of NovoLog (15 units or 0.1 unit/kg to transition off of drip), and high IV insulin infusion rate. * The second (57 mg/dl) was at 0139 overnight. Most likely d/t extra Lantus dose given at HS (25 units) when BSG was "high" from rebound hypoglycemia (Lantus was set as BSG scale based dosing- probably should have been held since BSG was artificially inflated from LOW treatment earlier in the evening). Pt also received 8 units of NovoLog at HS for "artificially high" BSG at HS. Both of these factors contributed to LOW overnight. * Will loosen CF/CR to prevent repeat low. * AM fasting BSG is in goal range at 122, 146 mg/dl. Will empirically decrease basal insulin dosing since insulin sensitivity increasing with resolution of glucose toxicity and rehydration. Will continue with Lantus 50 units SQ daily (do not give extra 25 units at HS). Will try to keep basal insulin dosing once daily administration for simplification of outpatient regimen. * Met with patient this morning for insulin administration teaching.Used the teach back method. Reviewed available injection sites, priming the pen, cleaning the injection site, administering the dose, rotating his injection sites to prevent scar tissue, and storage/discarding pen and needles. Pt seemed confident and verbalized understanding. Also reviewed signs/symptoms of hypo/hyperglycemia and treatment of hypoglycemia. 05/15: * 75 yo male admitted with HHS/Hyperglycemia/significant dehydration. Pt had pre-op blood work done for ablation which showed GLU of > 700 mg/dl. Pt is not currently taking any antidiabetic medications and endorsed a significant amount of weight loss making him think his DMT2 was gone. Pt with + symptoms of HHS including polydipsia, polyuria, dry mouth, and weakness. * Pt initiated on IV insulin infusion per protocol on admission. * Fluids per HHS protocol. * Pt tolerating PO intake this AM. * IV insulin infusion is being titrated based on BSG per protocol. IV insulin infusion rates running 2.4-6.8 units/hr * Will start the transition process of IV insulin to SQ basal bolus insulin regimen. Will start with high insulin resistance, weight based dosing of Lantus 50 units SQ x 1 dose. This is c/w IV insulin infusion rate of ~ 2.5 units/hr overnight while pt NPO. PLAN FOR INPATIENT GLYCEMIC CONTROL: * Basal insulin * Lantus 50 units SQ daily in AM * Bolus insulin: loosen parameters * NovoLog per scale ACHS or Q6hrs while NPO * Goal Range: 110-140 mg/dl * CF: 15mg/dl/unit * Nutritional / Prandial insulin per carb ratio of 1 unit per 5 grams CHO consumed PLAN FOR DISCHARGE: * A1c of 14.6% on 05/15/20 * Goal A1c = <7 % based on age and comorbidities * A1c is greater than or equal to 10% consider triple therapy with metformin + basal insulin + (GLP1-RA OR prandial insulin). May need to continue additional antidiabetic agent based on patient specific factors (efficacy, hypo risk, weight gain/loss, side effects, cost) * However, metformin is not be an appropriate agent for patient based on CKD. HF or CKD Predominates: * SGLT2i with evidence of reducing HF and/or CKD progression: empagliflozin > canagliflozin * Empagliflozin (Jardiance), canagliflozin (Invokana), dapagliflozin (Farxiga): do not use if eGFR is less than 45 ml/min * Ertugliflozin (Steglatro): do not use if eGFR is less than 60 ml/min * If SGLT2i not tolerated or CI d/t eGFR use a GLP-1 RA with proven CVD benefit (liraglutide > semaglutide > exenatide extended release) * AVOID: TZD (HF) * Other options include: DPP-4i (not saxagliptin), basal insulin, or possibly VEGA RECOMMEND: * Basal insulin with Lantus 50 units SQ daily. * If CrCl continues to improve could consider empagliflozin (Jardiance), it is not recommended to use SGLT2s with eGFR < 45 * If CrCl does not improve, could use Liraglutide (Victoza) 0.6 mg subcutaneously once daily for 1 week. After 1 week, increase the dose to 1.2 mg subcutaneously once daily. * Could consider an alternative GLP1 based on insurance coverage * Sitagliptin (Januvia) 50mg PO daily (this is renally dose adjusted dosing for eGRF 30-44ml/min) * NovoLog (or Humalog) rapid acting insulin with the largest meal of the day vs VEGA * Recommend NovoLog 15 units with large, high CHO meals and 10 units with smaller/low CHO meals. Could start with one meal per day- his largest meal of the day is dinner. VS * Glipizide 5 mg PO once daily given 30 minutes before breakfast
[2020-05-16 11:36] LABS: Folate (Folic Acid) 18.67 ng/ml (>5.38)
--- NOTE | 2020-05-16 12:49 | Hospitalist Progress Note ---
Date of Service May 16, 2020 Assessment & Plan (1) Diabetes mellitus type 2, uncontrolled: History of DM type 2 treated with oral agents in past. Oral agents discontinued last year because blood sugars were well controlled. (Sounds like patient was experiencing depression with anorexia after his .) Presented to ED with random glucose of 753. Hgb A1c = 14.6. Pharmacy consulted for glycemic management. Blood sugars improved with insulin infusion. Transitioned to SQ insulin last evening. Blood sugars still high. Receiving diabetes education. (2) Acute kidney injury: Serum creatinine 2.65 at time of admission. Baseline creatinine 1.8 03/15/20. YANCY secondary to hyperglycemia with osmotic diuresis. Received IV fluids. Creatinine today = 1.79. Follow. (3) Hyponatremia: Serum sodium 123 at time of admission. Mostly due to pseudohyponatremia secondary to hyperglycemia. Corrected Na was 133. Na today = 137. Follow. (4) CAD (coronary artery disease): No anginal symptoms. Continue metoprolol and statin. (5) Atrial fibrillation: Continue rate control with metoprolol and dilitazem. Continue anticoagulation with apixaban. Scheduled for ablation with Dr. Wright Wed 05/19. Missed appt pre-procedure COVID-19 screen 05/15 due to hospitalization. Check SARS-CoV-2 PCR today. Hold apixaban after this evening's dose. (6) Hypertension: Continue metoprolol and diltiazem. (7) COPD (chronic obstructive pulmonary disease): Pulmonary status stable. (8) DVT prophylaxis: Continue apixaban. (9) Discharge planning issues: Anticipated discharge to home. Family Medicine follow-up with Dr. Mittal. (10) Anemia: Hgb 10.5 day of admission, 9.5 today. Baseline Hgb 10.0 03/15/20. MCV 82-85. Fe 34, transferrin 222, % sat 11, ferritin 61. B12 1587. Folate 19. Endoscopies 03/07/18 showed gastric (hyperplastic) and sigmoid (tubular adenoma) polyps. Check stools for OB. Admission and Anticipated Discharge Date Admission Date: May 14, 2020 Subjective Recheck for uncontrolled DM and other problems. Patient seen in their room around 1140. Transitioned from insulin infusion to SQ. Receiving diabetes education. Blood sugars fluctuating. Review of Systems: Constitutional- no fever. Cardiac- no chest pain. Pulmonary- no cough or SOB. GI- no nausea, vomiting, diarrhea, melena, hematochezia. - no urinary symptoms. Otherwise, as noted above. Physical Exam Constitutional: no acute distress Respiratory: no respiratory distress Auscultation: lungs clear to auscultation bilaterally Cardiovascular: Rate/Rhythm: + irregularly irregular Vessels: no JVD Extremities: + edema (1+ pretibial); no calf tenderness Gastrointestinal (Abdomen): normal bowel sounds, soft, nontender, no hepatosplenomegaly Musculoskeletal: Extremities: no cyanosis Skin: no rashes, warm and dry Psychiatric: Orientation: alert and oriented x 3 Results & Data Results & Data ([facility]) Vital Signs (Past 12 Hours) Vital Signs Temp Pulse Pulse Resp BP Pulse Ox 05/16/20 11:14 36.6 C 74 18 137/72 98 05/16/20 07:19 36.5 C 85 20 131/79 99 05/16/20 07:06 80 05/16/20 03:00 36.7 C 47 L 18 124/71 99 Laboratory Results Laboratory Results - last 24 hr 05/15/20 05/15/20 05/15/20 12:22 13:18 14:43 WBC RBC Hgb Hct MCV MCH MCHC RDW Std Deviation RDW Coeff of Gerald Plt Count MPV Sodium 134 L Potassium 4.0 Chloride 97 L Carbon Dioxide 29 Anion Gap 8.0 BUN 49 H Creatinine 1.87 H Est Cr Clr Drug Dosing 40.6 Est GFR ( Amer) 40.4 Est GFR (Non-Af Amer) 34.9 BUN/Creatinine Ratio 25.9 H Glucose 165 H POC Glucose 242 H 160 H Calcium 9.6 Phosphorus 3.7 Magnesium 2.4 Iron Transferrin Transferrin % Sat Ferritin Vitamin B12 Folate 05/15/20 05/15/20 05/15/20 15:42 16:03 16:41 WBC RBC Hgb Hct MCV MCH MCHC RDW Std Deviation RDW Coeff of Gerald Plt Count MPV Sodium Potassium Chloride Carbon Dioxide Anion Gap BUN Creatinine Est Cr Clr Drug Dosing Est GFR ( Amer) Est GFR (Non-Af Amer) BUN/Creatinine Ratio Glucose POC Glucose 134 H 128 H 108 H Calcium Phosphorus Magnesium Iron Transferrin Transferrin % Sat Ferritin Vitamin B12 Folate 05/15/20 05/15/20 05/15/20 17:45 18:04 18:57 WBC RBC Hgb Hct MCV MCH MCHC RDW Std Deviation RDW Coeff of Gerald Plt Count MPV Sodium Potassium Chloride Carbon Dioxide Anion Gap BUN Creatinine Est Cr Clr Drug Dosing Est GFR ( Amer) Est GFR (Non-Af Amer) BUN/Creatinine Ratio Glucose POC Glucose 64 L* 168 H 243 H Calcium Phosphorus Magnesium Iron Transferrin Transferrin % Sat Ferritin Vitamin B12 Folate 05/15/20 05/15/20 05/16/20 20:01 20:58 01:39 WBC RBC Hgb Hct MCV MCH MCHC RDW Std Deviation RDW Coeff of Gerald Plt Count MPV Sodium 134 L Potassium 4.5 Chloride 100 Carbon Dioxide 26 Anion Gap 8.0 BUN 52 H Creatinine 2.12 H Est Cr Clr Drug Dosing 35.8 Est GFR ( Amer) 34.7 Est GFR (Non-Af Amer) 30.0 BUN/Creatinine Ratio 24.7 H Glucose 149 H POC Glucose 219 H 57 L* Calcium 9.1 Phosphorus Magnesium 2.3 Iron Transferrin Transferrin % Sat Ferritin Vitamin B12 Folate 05/16/20 05/16/20 05/16/20 01:41 02:00 05:50 WBC RBC Hgb Hct MCV MCH MCHC RDW Std Deviation RDW Coeff of Gerald Plt Count MPV Sodium Potassium Chloride Carbon Dioxide Anion Gap BUN Creatinine Est Cr Clr Drug Dosing Est GFR ( Amer) Est GFR (Non-Af Amer) BUN/Creatinine Ratio Glucose POC Glucose 65 L* 106 H 122 H Calcium Phosphorus Magnesium Iron Transferrin Transferrin % Sat Ferritin Vitamin B12 Folate 05/16/20 05/16/20 05/16/20 06:25 06:25 06:25 WBC 8.48 RBC 3.25 L Hgb 9.5 L Hct 28.4 L MCV 87.4 MCH 29.2 MCHC 33.5 RDW Std Deviation 47.3 H RDW Coeff of Gerald 15.1 H Plt Count 175 MPV 10.3 Sodium 137 Potassium 4.4 Chloride 104 Carbon Dioxide 27 Anion Gap 6.0 BUN 44 H Creatinine 1.79 H D Est Cr Clr Drug Dosing 42.9 Est GFR ( Amer) 42.6 Est GFR (Non-Af Amer) 36.8 BUN/Creatinine Ratio 24.8 H Glucose 125 H POC Glucose Calcium 8.9 Phosphorus Magnesium Iron 34 L Transferrin 222 Transferrin % Sat 11 L Ferritin 61.6 Vitamin B12 1587 H Folate 18.67 05/16/20 05/16/20 07:54 11:39 WBC RBC Hgb Hct MCV MCH MCHC RDW Std Deviation RDW Coeff of Gerald Plt Count MPV Sodium Potassium Chloride Carbon Dioxide Anion Gap BUN Creatinine Est Cr Clr Drug Dosing Est GFR ( Amer) Est GFR (Non-Af Amer) BUN/Creatinine Ratio Glucose POC Glucose 146 H 300 H Calcium Phosphorus Magnesium Iron Transferrin Transferrin % Sat Ferritin Vitamin B12 Folate
[2020-05-16] MEDS: ACETAMINOPHEN 325 MG TAB PO PRN (15:52)
[2020-05-16] MEDS: ATORVASTATIN 40 MG TAB PO SCH (20:21)
[2020-05-17] MEDS ORDERED: INSULIN ASPART 100 UNITS/ML 3 ML PEN SC SCH (02:00)
[2020-05-17 06:00] LABS: Hemoglobin 9.1 g/dL (14.0-18.0); Mean Corpuscular Hemoglobin 28.8 pg (25-34); Mean Corpuscular Hgb Conc 32.5 g/dL (32-36); Mean Corpuscular Volume 88.6 fL (80-100); Platelet Count 173 K/uL (130-400); RDW Coefficient of Variation 15.3 % (11.5-14.5); RDW Standard Deviation 49.6 fL (36.4-46.3); Red Blood Count 3.16 M/uL (4.7-6.1); White Blood Count 7.87 K/uL (4.8-10.8)
[2020-05-17 06:44] LABS: BUN Creatinine Ratio 24.3 (10-20); Calcium 8.7 mg/dl (8.5-10.1); Creatinine Clr Calc Pharmacy 44.9 ml/min; Est GFR (Non-African American) 38.9; Potassium 4.7 mmol/L (3.5-5.1)
--- NOTE | 2020-05-17 09:18 | Electrocardiogram Report ---
Test Reason : Blood Pressure : / mmHG Vent. Rate : 080 BPM Atrial Rate : 080 BPM P-R Int : 000 ms QRS Dur : 108 ms QT Int : 386 ms P-R-T Axes : 000 -20 025 degrees QTc Int : 445 ms Atrial fibrillation Incomplete left bundle block Borderline ECG When compared with ECG of 20-DEC-2016 09:21, Atrial fibrillation is now Present Incomplete left bundle block is now Present Confirmed by Cristobal Ramirez ([id number]) on 05/17/2020 9:17:59 AM Referred By: REFERRED SELF Confirmed By:Cristobal Ramirez
[2020-05-17] MEDS: INSULIN ASPART 100 UNITS/ML 3 ML PEN SC SCH ×2 (09:25→12:40)
[2020-05-17] MEDS: INSULIN GLARGINE SOLOSTAR 100 UNITS/ML 3 ML PEN SC SCH (09:26)
[2020-05-17] MEDS: dilTIAZem ER 180 MG CAPCR PO SCH (09:27)
[2020-05-17] MEDS: ASPIRIN 81 MG ECTAB PO SCH (09:27)
[2020-05-17] MEDS: TAMSULOSIN HCL 0.4 MG CAP PO SCH (09:27)
[2020-05-17] MEDS: METOPROLOL SUCC 50MG EXT REL TAB PO SCH (09:27)
--- NOTE | 2020-05-17 16:02 | Hospitalist Progress Note ---
Date of Service May 17, 2020 Assessment & Plan (1) Diabetes mellitus type 2, uncontrolled: History of DM type 2 treated with oral agents in past. Oral agents discontinued last year because blood sugars were well controlled. (Sounds like patient was experiencing depression with anorexia after his .) Presented to ED with random glucose of 753. = HHS (hyperosmolar hyperglycemic state) Hgb A1c = 14.6. Pharmacy consulted for glycemic management. Blood sugars improved with insulin infusion. Transitioned to SQ insulin last evening. Received diabetes education. Initial plan of care: Lantus 60 units SQ q a.m. NovoLog with meals, 15 units for large meals, 10 units for small-medium continue to hold oral agents at this time Outpatient follow-up with [facility] for further education and management. (2) Acute kidney injury: Serum creatinine 2.65 at time of admission. Baseline creatinine 1.8 03/15/20. YANCY secondary to hyperglycemia with osmotic diuresis. Received IV fluids. Creatinine today = 1.71. Follow. (3) Hyponatremia: Serum sodium 123 at time of admission. Mostly due to pseudohyponatremia secondary to hyperglycemia. Corrected Na was 133. Na today = 139. Follow. (4) CAD (coronary artery disease): No anginal symptoms. Continue metoprolol and statin. (5) Atrial fibrillation: Persistent atrial fib / flutter. Continue rate control with metoprolol and dilitazem. Continue anticoagulation with apixaban. Scheduled for ablation with Dr. Wright Wed 05/19. Missed appt pre-procedure COVID-19 screen 05/15 due to hospitalization. Preop SARS-CoV-2 PCR 05/16 negative. Holding apixaban for procedure. (6) Hypertension: Continue metoprolol and diltiazem. (7) COPD (chronic obstructive pulmonary disease): Pulmonary status stable. (8) Anemia: History of anemia with recent baseline Hgb ~ 10. Followed by Dr. Suarez for B12 deficiency and monoclonal gammopathy. S/P EGD and colonoscopy 2017; found to have small benign gastric and sigmoid polyps. Hgb 10.5 day of admission, fell to 9.1 with IV fluids. MCV 82-85. Fe 34, transferrin 222, % sat 11, ferritin 61. B12 1587. Folate 19. Hemoccult +. No gross GI bleeding. Discussed with patient, Cardiology, and GI. No emergent need for repeat endoscopies. Continue aspirin and apixaban with caution. Empiric PPI. Start Fe. Follow H/H. Repeat endoscopies as scheduled for follow-up or sooner if necessary. (9) COVID-19 ruled out: COVID-19 screening necessary for AF ablation scheduled for 05/19/20. SARS-CoV-2 PCR performed @ [facility] negative on 05/16/20. (10) DVT prophylaxis: Continue apixaban. (11) Discharge planning issues: Discharge to home. Family Medicine follow-up with Dr. Mittal. Cardiology follow-up with Dr. Monroy. EP Cardiology follow-up with Dr. Wright. Hematology follow-up with Dr. Jarek Suarez. Admission and Anticipated Discharge Date Admission Date: May 14, 2020 Subjective Recheck for uncontrolled DM and other problems. Patient seen in their room around 1520. Blood sugars still high, but improved. Has received education regarding insulin injections and feels comfortable with self-care. Ready to go home. Review of Systems: Constitutional- no fever. Cardiac- no chest pain. Pulmonary- no cough or SOB. GI- no nausea, vomiting, diarrhea, melena, hematochezia. - no urinary symptoms. Otherwise, as noted above. Physical Exam Constitutional: no acute distress Respiratory: no respiratory distress Auscultation: lungs clear to auscultation bilaterally Cardiovascular: Rate/Rhythm: + irregularly irregular Vessels: no JVD Extremities: + edema (1+ pretibial); no calf tenderness Gastrointestinal (Abdomen): normal bowel sounds, soft, nontender, no hepato splenomegaly Musculoskeletal: Extremities: no cyanosis Skin: no rashes, warm and dry Psychiatric: Orientation: alert and oriented x 3 Results & Data Results & Data ([facility]) Vital Signs (Past 12 Hours) Vital Signs Temp Pulse Pulse Resp BP BP Pulse Ox 05/17/20 14:57 37.0 C 86 18 127/78 94 05/17/20 11:22 36.6 C 82 18 134/81 100 05/17/20 07:24 36.8 C 80 18 124/72 98 05/17/20 07:00 86 05/17/20 04:57 36.7 C 80 22 119/72 97 Laboratory Results 05/17/20 05:46 05/17/20 05:46
--- NOTE | 2020-05-18 03:14 | Discharge Summary ---
Date of Service Date of Admission: 05/14/20 Date of Discharge: 05/17/20 Admission HPI Per Admitting Provider 75 YO male c PMH of DM II, HTN, Obesity, AFIB, CAD, and COPD went to his PCPs office today and had bloodwork done. He is to have ablation +-PPM by Dr Kate on Wed here at [facility]. He was at Dr Dunn's office when she found out what his bloodwork showed. A BS in the 750 Range. Over the last 2 he lost a considerable amount of weight and he thought his DM was gone. Thus he was not on a BS control regimen. He c/o Polydypsia, dry mouth, and weakness. He also notes polyuria as well. He may have CKD, but is not sure. Principal Diagnosis diabetes mellitus type 2 with complications / uncontrolled (HHS) OTHER ACUTE / NEW DIAGNOSES acute kidney injury heme + stools Discharge Data Allergies Allergy/AdvReac Type Severity Reaction Status Date / Time clopidogrel Allergy Intermediate RASH Verified 05/14/20 18:48 Consultations 05/14/20 18:28 ED Decision to Admit Stat Diabetes Follow up Diabetes Follow-up Needed for HgbA1c >9% Hospital Course (1) Diabetes mellitus type 2, uncontrolled: History of DM type 2 treated with oral agents in past. Oral agents discontinued last year because blood sugars were well controlled. (Sounds like patient was experiencing depression with anorexia after his .) Presented to ED with random glucose of 753. = HHS (hyperosmolar hyperglycemic state) Hgb A1c = 14.6. Pharmacy consulted for glycemic management. Blood sugars improved with insulin infusion. Transitioned to SQ insulin. Received diabetes education. Initial plan of care at time of discharge: Lantus 60 units SQ q a.m. (reduce to 30 if NPO for procedure) NovoLog with meals, 15 units for large meals, 10 units for small-medium continue to hold oral agents at this time Outpatient follow-up with [facility] for further education and management. (2) Acute kidney injury: Serum creatinine 2.65 at time of admission. Baseline creatinine 1.8 03/15/20. YANCY secondary to hyperglycemia with osmotic diuresis. Received IV fluids. Creatinine day of discharge = 1.71. Follow. (3) Hyponatremia: Serum sodium 123 at time of admission. Mostly due to pseudohyponatremia secondary to hyperglycemia. Corrected Na was 133. Na day of discharge = 139. Follow. (4) CAD (coronary artery disease): No anginal symptoms. Continue metoprolol and statin. (5) Atrial fibrillation: Persistent atrial fib / flutter. Continue rate control with metoprolol and dilitazem. Continue anticoagulation with apixaban. Scheduled for ablation with Dr. Wright Wed 05/19. Missed appt pre-procedure COVID-19 screen 05/15 due to hospitalization. Preop SARS-CoV-2 PCR 05/16 negative. Holding apixaban for ablation 05/19 (last dose evening of 05/16). (6) Hypertension: Continue metoprolol and diltiazem. (7) COPD (chronic obstructive pulmonary disease): Pulmonary status stable. (8) Anemia: History of anemia with recent baseline Hgb ~ 10. Followed by Dr. Suarez for B12 deficiency and monoclonal gammopathy. S/P EGD and colonoscopy 2017; found to have small benign gastric and sigmoid polyps. Hgb 10.5 day of admission, fell to 9.1 with IV fluids. MCV 82-85. Fe 34, transferrin 222, % sat 11, ferritin 61. B12 1587. Folate 19. Hemoccult +. No gross GI bleeding. Discussed with patient, Cardiology, and GI. No emergent need for repeat endoscopies. Continue aspirin and apixaban with caution. Empiric PPI. Start Fe. Follow H/H. Repeat endoscopies as scheduled for follow-up or sooner if necessary. (9) COVID-19 ruled out: COVID-19 screening necessary for AF ablation scheduled for 05/19/20. SARS-CoV-2 PCR performed @ [facility] negative on 05/16/20. (10) DVT prophylaxis: Continued apixaban. (11) Discharge planning issues: Discharged to home. Family Medicine follow-up with Dr. Mittal. Cardiology follow-up with Dr. Monroy. EP Cardiology follow-up with Dr. Wright. Hematology follow-up with Dr. Jarek Suarez. Total Time Total Time Spent Total Time Spent (In Minutes): 40 Discharge Plan Discharge Items Patient Disposition: Home - Self-Care Reason For Visit: high blood sugars Discharge Diagnosis: diabetes mellitus type 2, not well-controlled Condition on Discharge: Good Activity: Resume your previous activity Non-emergency contact: Primary Care Provider, Hospitalist and Billing And Accounting Staff Assistant Call non-emergency contact if: you have any medication questions and your symptoms worsen Follow-up/Referrals: Julita Mittal DO [Primary Care Provider] - (05/21/2020 11:20 AM Julita Mittal DO [facility] ) Nicky Wright DO [Physician] - Diet: Carb Consistent or DM2 and Heart Healthy Addtl Attending Provider Instructions: MEDICATION CHANGES: HOLD apixaban (Eliquis) until after ablation with Dr. Wright on Saturday 05/19, then resume as before. Initial insulin routine: Check your blood sugars before meals and at bedtime. Lantus 60 units each morning. Cut dose in 1/2 if skipping breakfast or if blood sugar is less than 100. Only take 30 units the morning of your ablation procedure. NovoLog 15 units with large meals 10 units with small-medium meals none if blood sugar is less than 100 omeprazole (Prilosec) 40 mg daily controls stomach acid ferrous sulfate (iron pill) 325 mg daily with lunch for anemia ascorbic acid (vitamin C) 500 mg daily with lunch helps body absorb more iron SUMMARY OF TEST RESULTS: Blood sugar in Emergency Department was 753. Hemoglobin A1c was 14.6. COVID-19 test was negative on 05/16/20. RECOMMENDATIONS FOR FOLLOW-UP: Please ask Dr. Mittal for referral to [facility] to help you manage your diab etes. OTHER INSTRUCTIONS: Seek medical attention if you have: * temperature above 101 * chest pain or trouble breathing * abdominal pain, nausea, vomiting * diarrhea, dark stools or bloody stools * any unanswered questions or concerns Call 911 if symptoms are severe. Please take good care of yourself. Call if you have any questions or problems. You can reach a [facility] hospitalist on duty at [facility] 24 hours a day by calling [phone]. My cell # is [phone]. Pending Studies at Discharge: Yes Stand-Alone Forms: My [facility], Smoking Cessation Medications and DC Order Prescriptions: New Lantus Solostar U-100 Insulin 100 unit/mL (3 mL) Insulin Pen 60 unit SC DAILY Qty: 15 RF: 12 insulin aspart U-100 [Novolog Flexpen U-100 Insulin] 100 unit/mL (3 mL) Insulin Pen See Rx Instructions .ROUTE .COMPLEX Qty: 15 RF: 12 (DME) lancets [OneTouch Delica Lancets] 33 gauge misc See Rx Instructions .ROUTE .MEDSUPPLY Qty: 100 RF: 12 (DME) OneTouch Verio test strips Strip See Rx Instructions .ROUTE .MEDSUPPLY Qty: 100 RF: 12 (DME) pen needle, diabetic [Comfort EZ Pen Burnett] 32 gauge x 3/16" needle See Rx Instructions .ROUTE .MEDSUPPLY Qty: 100 RF: 12 omeprazole 40 mg capsule,delayed release(DR/EC) 40 mg PO DAILY Qty: 30 RF: 5 ferrous sulfate 325 mg (65 mg iron) tablet 325 mg PO DAILY Qty: 30 RF: 5 ascorbic acid (vitamin C) 500 mg tablet 500 mg PO DAILY Qty: 30 RF: 5 Continued atorvastatin [Lipitor] 40 mg tablet 40 mg PO HS RF: 0 diltiazem HCl [Tiadylt ER] 180 mg capsule,extended release 24 hr 180 mg PO QAM RF: 0 metoprolol succinate [Toprol XL] 100 mg tablet extended release 24 hr 100 mg PO QAM RF: 0 aspirin [Aspirin Low Dose] 81 mg Tablet,Delayed Release (Dr/Ec) 81 mg PO QAM RF: 0 tamsulosin [Flomax] 0.4 mg capsule 0.4 mg PO QAM RF: 0 albuterol sulfate 90 mcg/actuation Hfa Aerosol Inhaler 1 puff INHALATION Q6H PRN (Reason: Shortness Of Breath Or Wheezing) RF: 0 magnesium 200 mg Tablet 200 mg PO TID RF: 0 Eliquis 5 mg tablet 5 mg PO BID RF: 0 Discharge Orders: Discharge Order (Routine); Ordered 05/17/20 Ordered By: Randell Mosley Admission Data Admit Date/Time: 05/14/20 19:25 Attending Provider: Randell Mosley Admit Provider: Jacky Thomas Primary Care Provider: Julita Mittal Other Providers: Jacky Thomas Other Interventions: Discharge Summary Assessment (RN) Last Done: 05/17/20 16:59
[2020-05-18] MEDS ORDERED: INSULIN GLARGINE SOLOSTAR 100 UNITS/ML 3 ML PEN SC SCH (09:00)
== END 2020-05-17 17:10 | disposition home or self-care (01) | DRG 638 ==
LOC: ED 16:49 → SUATTDRO 19:25 → 2N 19:25
DX: I25.10 Atherosclerotic heart disease of native coronary artery without angina pectoris; Z79.82 Long term (current) use of aspirin; Z88.8 Allergy status to other drugs, medicaments and biological substances; E78.5 Hyperlipidemia, unspecified; E66.9 Obesity, unspecified; Z79.01 Long term (current) use of anticoagulants; J44.9 Chronic obstructive pulmonary disease, unspecified; I10 Essential (primary) hypertension; D64.9 Anemia, unspecified; I48.91 Unspecified atrial fibrillation; Z95.1 Presence of aortocoronary bypass graft; Z79.899 Other long term (current) drug therapy; Z87.891 Personal history of nicotine dependence; C61 Malignant neoplasm of prostate; K21.9 Gastro-esophageal reflux disease without esophagitis; E86.0 Dehydration; E87.1 Hypo-osmolality and hyponatremia; N17.8 Other acute kidney failure; E11.00 Type 2 diabetes mellitus with hyperosmolarity without nonketotic hyperglycemic-hyperosmolar coma (NKHHC)

== ENCOUNTER 2020-05-26 09:55 | Observation (INO) ==
--- NOTE | 2020-05-18 12:57 | Anesthesiology Consultation ---
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 Did recently travel to [facility] when admitted to [facility]. No known Covid positive contacts or Covid related symptoms. Covid test 05/16/20 during hospital admission= negative Patient admitted to [facility] 05/14/20-05/17/20= patient admitted for uncontrolled diabetes, acute kidney injury, heme positive stools. Patient was found to have a blood sugar of 750 with outpatient labs prior to admission. Blood sugars improved with insulin infusion. Patient was transitioned to subcutaneous insulin and received diabetes education. Patient discharged on Lantus and NovoLog. Patient will follow-up with [facility] for further education and management. Acute kidney injuryfelt secondary to hyperglycemia with osmotic diuresis. Received IV fluids. Baseline creatinine 1.8at discharge patient's creatinine was 1.7. Hyponatremiaimproved at discharge. CADno anginal symptoms, continue current medications. A. fibpersistent A. fib/flutter. Rate controlled. Continue Eliquis. Follow-up for scheduled ablation on 05/19/2020. Hypertensioncontinue meds. COPDpulmonary status stable. Anemiabaseline hemoglobin approximately 10. Follows with heme for vitamin B12 deficiency and monoclonal gammopathy. Seen by cardio 05/14/2020 = patient's blood sugar at time of office visit was >750. Patient was referred to ED for management of diabetes. Permanent A. fibventricular rate is now very well controlled. Continue current medications. Chronic diastolic CHFno volume overload on exam. Hypertensionwell controlled. CADstable no angina. Continue current medications. History Surgery Operation Date: 05/19/20 08:00 Proposed Procedures p Biventricular Pacemaker Insertion and HIS Lead Placement w/Mary Lou Wright DO s AV Node (No Mapping) w/Mary Lou Wright DO Height/Weight Height: 5 ft 8 in Weight: 108.862 kg Allergies Allergy/AdvReac Type Severity Reaction Status Date / Time clopidogrel Allergy Intermediate RASH Verified 05/18/20 12:12 Medications Home Medications Medication Instructions Recorded Confirmed Last Taken Eliquis 5 mg PO BID 05/14/20 05/18/20 05/14/20 albuterol sulfate 1 puff INHALATION Q6H PRN 05/14/20 05/18/20 Unknown aspirin [Aspirin Low Dose] 81 mg PO QAM 05/14/20 05/18/20 05/14/20 atorvastatin [Lipitor] 40 mg PO HS 05/14/20 05/18/20 05/13/20 diltiazem HCl [Tiadylt ER] 180 mg PO QAM 05/14/20 05/18/20 05/14/20 metoprolol succinate [Toprol XL] 100 mg PO QAM 05/14/20 05/18/20 05/14/20 tamsulosin [Flomax] 0.4 mg PO QAM 05/14/20 05/18/20 05/14/20 ascorbic acid (vitamin C) 500 mg PO DAILY #30 tab 05/17/20 05/18/20 Unknown blood sugar diagnostic [OneTouch #100 ea 05/17/20 Unknown Verio test strips] ferrous sulfate 325 mg PO DAILY #30 tab 05/17/20 05/18/20 Unknown lancets [OneTouch Delica Lancets] #100 ea 05/17/20 Unknown pen needle, diabetic [Comfort EZ #100 ea 05/17/20 Unknown Pen [place]] insulin aspart U-100 [Novolog 1 unit SUBCUT UD 05/18/20 05/18/20 Unknown Flexpen U-100 Insulin] insulin glargine [Lantus Solostar 60 unit SC QA 05/18/20 05/18/20 Unknown U-100 Insulin] omeprazole 40 mg PO QAM 05/18/20 05/18/20 Unknown Past Medical History Medical History (Updated 05/18/20 @ 12:59 by Shauna Kyle PA-C) Anemia Hgb basline around 10 per records Atrial fibrillation On Eliquis Atrial flutter needs pacemaker CKD (chronic kidney disease) Baseline creat 1.8 per records COPD (chronic obstructive pulmonary disease) Coronary artery disease S/p BMS x 2 to RCA in 1998 and 2000 Diabetes mellitus type 2 with complications Uncontrolled- recent Hgb A1C 14.6- pt had been of DM meds- restarted on insulin during recent admission Esophageal reflux Hyperlipidemia Hypertension MAXIM (obstructive sleep apnea) Per records Prostate cancer radioactive seeds Past Surgical History Surgical History History of arthroscopy of shoulder right and left History of cardiac cath 1998 stent placed at [place] and then a year later 1999 had it reopened Hx of arthroscopy of left knee Hx of colonoscopy Hx of esophagogastroduodenoscopy Status post appendectomy Social History Smoking Status: Former smoker Do You Dip or Chew Tobacco: No Smoking End Date: quit 1996 Hx Alcohol Use: No Hx Substance Use: No substance use type: does not use Testing Laboratory Results 05/17/20= WBC: 7.87 H/H: 9.1/28.0 (chronic and stable) PLATELETS: 173 SODIUM: 139 POTASSIUM: 4.7 CHLORIDE: 108 CO2: 26 BUN: 42 (chronic and stable) CREATININE: 1.71 (chronic and stable) GLUCOSE: 153 05/15/20= HGB A1C: 14.6 PT: 11.1 INR: 1.1 Electrocardiogram Date: 05/14/20 Findings: + AFIB @ (80) Incomplete left bundle branch block. Compared to EKG from December 20, 2016A. fib is now present, incomplete left bundle branch block is not present. Chest X-Ray Date: 05/14/20 Findings: + NAD and + cardiomegaly (Mild/unchanged) Low lung volumes. Stable left hilar prominence. No pleural effusions. No pneumothorax. The lungs are clear. Echocardiogram Date: 04/29/20 EF: 50-54% LV Function: normal Other Findings: + LVH (Moderate/concentric) Atrial fibrillation during the examination. Borderline diffuse left ventricular hypokinesis. Moderate aortic valve sclerosis is present. Moderate mitral annular calcification. Left atrium is mildly enlarged. Mild secondary MR is present. Left ventricular diastolic function is abnormal.
[~2020-05-26 09:55] MED LIST changes: -AMLO-110 PO; -ASPEC325 PO; -ATOR-24 PO; +BACITRACIN INJ 50,000 UNIT VIAL ONE; +BUPIVACAINE 0.25% 30 ML VIAL ONE; -CARV6.25 PO; -FENO145T26 PO; -FLUT0.15 NAE; -GLC500 PO; -GLIP-199 PO; +HEPARIN (PORCINE) 1000 UNIT/ML 10 ML (CATH LAB USE ONLY) ONE; +LIDOCAINE HCL 1% 20 ML VIAL ONE; -LISI-788 PO; -PANT40TA PO; -PSEU60TA80 PO; -SPIR25TA PO; -TAMS0.4C38 PO; -VNTHFA/IN INH; -[UNRECOGNIZED DRUG - OTHER] NAE
--- NOTE | 2020-05-26 10:16 | History & Physical Bridge Note ---
Date of Service May 26, 2020 History & Physical Bridge Note I have examined the patient, reviewed the History & Physical and in the interval since the performance of the History & Physical I have noted the following changes of clinical significance: no changes noted
--- NOTE | 2020-05-26 10:24 | Pre Anesthesia Assessment ---
Date of Service May 26, 2020 Pre Sedation Assessment Vital Signs Temp Pulse Resp BP Pulse Ox 05/26/20 10:00 36.7 C 103 H 18 128/89 98 Cardiovascular + tachycardic Respiratory normal respiratory effort, lungs clear to auscultation Pre-Sedation Airway Assessment Smoking Status: Former smoker Hx Sleep Apnea: No Hx Difficult Intubation: No Short, Thick Neck: Yes Thyromental Distance: < 3.5 Finger Breadths Oral Cavity: + Dental Abnormalities Mallampati Class: II ASA: ASA3 NPO Status Date of Last Intake of Fluids: 05/25/20 Date of Last Intake of Solid Food: 05/25/20 Procedure Planning Contraindications for Sedation: none Current Medications Reviewed: Yes Notes The planned sedation has been discussed with the patient. Informed Consent was obtained. I have identified the patient, determined the appropriateness of sedation and have assessed the patient immediately prior to the procedure. All medicine(s) and interventions are by my order.
[2020-05-26] MEDS ORDERED: BUPIVACAINE 0.25% 30 ML VIAL ONE (10:38)
[2020-05-26] MEDS ORDERED: LIDOCAINE HCL 1% 20 ML VIAL ONE (10:38)
[2020-05-26] MEDS ORDERED: BACITRACIN INJ 50,000 UNIT VIAL ONE (10:38)
[2020-05-26] MEDS ORDERED: ePHEDrine sulfate 50 MG/ML AMP IV PRN (10:43)
[2020-05-26] MEDS ORDERED: ATROPINE SULFATE 0.1 MG/ML 10ML SYR IV PRN (10:43)
--- NOTE | 2020-05-26 10:43 | Anesthesiology Consultation ---
Date of Service May 26, 2020 Assessment & Plan ASA ASA3 Proposed Anesthesia Anesthesia Type: MAC Risk / Benefits Reviewed With: PT / POA / Parent / Guardian, Accepts Plan and Informed Consent Obtained History Surgery Operation Date: 05/26/20 11:00 Proposed Procedures p Biventricular Pacemaker Insertion and HIS Lead Placement - Nicky Wright DO s AV Node Ablation (No Mapping) - Nicky Wright DO Height/Weight Height: 5 ft 8 in Weight: 114.2 kg Allergies Allergy/AdvReac Type Severity Reaction Status Date / Time clopidogrel Allergy Intermediate RASH Verified 05/26/20 10:06 Medications Home Medications Medication Instructions Recorded Confirmed Last Taken Eliquis 5 mg PO BID 05/14/20 05/26/20 05/14/20 albuterol sulfate 1 puff INHALATION Q6H PRN 05/14/20 05/26/20 Unknown aspirin [Aspirin Low Dose] 81 mg PO QAM 05/14/20 05/26/20 05/14/20 atorvastatin [Lipitor] 40 mg PO HS 05/14/20 05/26/20 05/13/20 diltiazem HCl [Tiadylt ER] 180 mg PO QAM 05/14/20 05/26/20 05/14/20 metoprolol succinate [Toprol XL] 100 mg PO QAM 05/14/20 05/26/20 05/14/20 tamsulosin [Flomax] 0.4 mg PO QAM 05/14/20 05/26/20 05/14/20 ascorbic acid (vitamin C) 500 mg PO DAILY #30 tab 05/17/20 05/26/20 Unknown blood sugar diagnostic [OneTouch #100 ea 05/17/20 Unknown Verio test strips] ferrous sulfate 325 mg PO DAILY #30 tab 05/17/20 05/26/20 Unknown lancets [OneTouch Delica Lancets] #100 ea 05/17/20 Unknown pen needle, diabetic [Comfort EZ #100 ea 05/17/20 Unknown Pen [place]] insulin aspart U-100 [Novolog 1 unit SUBCUT UD 05/18/20 05/26/20 Unknown Flexpen U-100 Insulin] insulin glargine [Lantus Solostar 60 unit SC QAM 05/18/20 05/26/20 Unknown U-100 Insulin] omeprazole 40 mg PO QAM 05/18/20 05/26/20 Unknown allopurinol 300 mg PO DAILY 05/26/20 05/26/20 Unknown furosemide [Lasix] 80 mg PO BID 05/26/20 05/26/20 Unknown Past Medical History Medical History Anemia Hgb basline around 10 per records Atrial fibrillation On Eliquis Atrial flutter needs pacemaker CKD (chronic kidney disease) Baseline creat 1.8 per records COPD (chronic obstructive pulmonary disease) Coronary artery disease S/p BMS x 2 to RCA in 1998 and 2000 Diabetes mellitus type 2 with complications Uncontrolled- recent Hgb A1C 14.6- pt had been of DM meds- restarted on insulin during recent admission Esophageal reflux Hyperlipidemia Hypertension MAXIM (obstructive sleep apnea) Per records Prostate cancer radioactive seeds Exercise / Class Metabolic Activity II 4-5 Yardwork/Stairs/Walk up hill Past Surgical History Surgical History History of arthroscopy of shoulder right and left History of cardiac cath 1998 stent placed at [place] and then a year later 1999 had it reopened Hx of arthroscopy of left knee Hx of colonoscopy Hx of esophagogastroduodenoscopy Status post appendectomy Past Anesthesia History No Hx of Anesthesia Complications and No Family Hx of Anesthesia Complications History of PONV No Hx of PONV and No Hx of Motion Sickness Social History Smoking Status: Former smoker Do You Dip or Chew Tobacco: No Smoking End Date: quit 1996 Hx Alcohol Use: Yes (former) Alcohol Intake Frequency Comment: quit in february Hx Substance Use: No substance use type: does not use Review of Systems denies fever/cough/ colds/ chest pain/MAXIM pstient is SOB at baseline Constitutional: no fever and no chills Respiratory: no cough and no dyspnea denies MAXIM Cardiovascular: no chest pain and no dyspnea on exertion Physical Exam Vital Signs Last Vital Signs Temp 36.7 C 05/26/20 10:00 Pulse 48 L 05/26/20 10:30 Resp 18 05/26/20 10:30 BP 119/73 05/26/20 10:30 Pulse Ox 98 05/26/20 10:30 ENMT Mouth: + edentulous; no TMJ abnormality and no dentition abnormality Thyromental Distance: > or= 3.5 Finger Breadths Mallampati Class: II Neck neck extension not limited Respiratory normal respiratory effort; no respiratory distress Auscultation: lungs clear to auscultation bilaterally Cardiovascular Rate/Rhythm: regular rate and regular rhythm Neurologic moves all extremities Psychiatric Orientation: alert and oriented x 3 Testing Electrocardiogram Date: 05/14/20 Findings: + AFIB @ (80) Incomplete left bundle branch block. Compared to EKG from December 20, 2016A. fib is now present, incomplete left bundle branch block is not present. Chest X-Ray Date: 05/14/20 Findings: + NAD and + cardiomegaly (Mild/unchanged) Low lung volumes. Stable left hilar prominence. No pleural effusions. No pneumothorax. The lungs are clear. Echocardiogram Date: 04/29/20 EF: 50-54% LV Function: normal Other Findings: + LVH (Moderate/concentric) Atrial fibrillation during the examination. Borderline diffuse left ventricular hypokinesis. Moderate aortic valve sclerosis is present. Moderate mitral annular calcification. Left atrium is mildly enlarged. Mild secondary MR is present. Left ventricular diastolic function is abnormal.
[2020-05-26] MEDS ORDERED: MIDAZOLAM HCL 1 MG/ML 2ML VIAL ONE ×4 (10:47→12:24)
[2020-05-26] MEDS ORDERED: CEFAZOLIN 250 MG/ML 1 GM VIAL ONE (11:24)
[2020-05-26] MEDS ORDERED: fentaNYL citrate 100 MCG/2 ML VIAL ONE ×2 (11:26→13:04)
[2020-05-26] MEDS ORDERED: PROPOFOL IV EMULSION 10 MG/ML 20 ML VIAL IV ONE (13:29)
--- NOTE | 2020-05-26 16:04 | Operative Report ---
Post Operative Report Pre & Post Diagnosis Pre: Permanent AF with RVR Post: CHB Operation Date: 05/26/20 11:00 <No data on this case meets the specified criteria> I identified the patient and participated in the time-out.: Yes Procedure Operation Date: 05/26/20 11:00 Actual Procedures p Pacer with A/V Leads (Dual) - Nicky Wright DO s Bundle of his Recording - Nicky Wright DO s Lead LV (No Priopr Implant) - Nicky Wright DO AVN ablation Surgeon Nicky Wright, Spring Upholsterer none Estimated Blood Loss 50 Findings Consistent with Post-Op Diagnosis Specimens none Description of Procedure see official report I attest to the content of the Intraoperative Record and any orders documented therein. Any exceptions are noted below.
[2020-05-26] MEDS ORDERED: ACETAMINOPHEN 325 MG TAB PO PRN (16:05)
--- NOTE | 2020-05-26 16:17 | Discharge Summary ---
Date of Service April Admission HPI Per Admitting Provider Pt admitted for elective BiV ppm and AVN ablation due to AF with RVR Admission Exam Per Admitting Provider aaox3, NAD NC/AT, EOMI Supple No JVD irregular/irregular S1/S2, No murmur CTA b/l no w/r/r soft nt/nd no LE edema b/l skin intact no focal deficits Principal Diagnosis Permanent AF with RVR s/p BiV ppm and AVN ablation Discharge Exam aaox3, NAD NC/AT, EOMI Supple No JVD Nrl S1/S2, No murmur CTA b/l no w/r/r soft nt/nd no LE edema b/l skin intact no focal deficits left pectoral incision intact, no hematoma mild ecchymosis Discharge Data Allergies Allergy/AdvReac Type Severity Reaction Status Date / Time clopidogrel Allergy Intermediate RASH Verified 05/26/20 10:06 Procedures Performed Operation Date: 05/26/20 11:00 Actual Procedures p Pacer with A/V Leads (Dual) - Nicky Wright DO s Bundle of his Recording - Nicky Wright DO s Lead LV (No Priopr Implant) - Nicky Wright DO s AV Node Ablation - Nicky Wright DO Ordered Studies 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 CXR: No PTX, leads in position PPM Interrogation: Normal function 05/19/20 07:00 EP Lab Images for PACS ONCE 05/26/20 06:45 EP Lab Images for PACS ONCE Hospital Course (1) Atrial fibrillation: Total Time Total Time Spent Total Time Spent (In Minutes): 35 Total Time Includes: Examination of the Patient, Discharge Planning, Medication Reconciliation and Other Discharge Plan Discharge Items Patient Disposition: Home - Self-Care Reason For Visit: DUAL PACER AND AV NODE ABLATION Discharge Diagnosis: permanent AF with RVR s/p BiV ppm and AVN ablation Condition on Discharge: Good Activity: As commented below Activity Comment: do not raise the left elbow over the left shoulder for 1 month Lifting: No more than 10 pounds Lifting Comment: do not lift more than 10 pounds with the left arm for 2 weeks Bathing: Keep incision dry Bathing Comment: Keep dressing on and dry until wound check next week Sexual Activity: After two weeks Non-emergency contact: Punch Box Tender Call non-emergency contact if: you have any medication questions Follow-up/Referrals: Julita Mittal DO [Primary Care Provider] - Diet: Heart Healthy Addtl Attending Provider Instructions: Device and wound check as scheduled in [facility] cardiology next week Cut the metoprolol in half take 50mg daily Pending Studies at Discharge: No Stand-Alone Forms: My [facility] [employer] Medications and DC Order Prescriptions: Continued omeprazole 40 mg capsule,delayed release(DR/EC) 40 mg PO QAM RF: 0 insulin aspart U-100 [Novolog Flexpen U-100 Insulin] 100 unit/mL (3 mL) insu amish pen 1 unit subcut UD RF: 0 Lantus Solostar U-100 Insulin 100 unit/mL (3 mL) insulin pen 60 unit SC QAM RF: 0 furosemide [Lasix] 40 mg Tablet 80 mg PO BID RF: 0 allopurinol 300 mg Tablet 300 mg PO DAILY RF: 0 atorvastatin [Lipitor] 40 mg tablet 40 mg PO HS RF: 0 aspirin [Aspirin Low Dose] 81 mg Tablet,Delayed Release (Dr/Ec) 81 mg PO QAM RF: 0 tamsulosin [Flomax] 0.4 mg capsule 0.4 mg PO QAM RF: 0 albuterol sulfate 90 mcg/actuation Hfa Aerosol Inhaler 1 puff INHALATION Q6H PRN (Reason: Shortness Of Breath Or Wheezing) RF: 0 Eliquis 5 mg tablet 5 mg PO BID RF: 0 (DME) lancets [OneTouch Delica Lancets] 33 gauge misc See Rx Instructions .ROUTE .MEDSUPPLY Qty: 100 RF: 12 (DME) OneTouch Verio test strips Strip See Rx Instructions .ROUTE .MEDSUPPLY Qty: 100 RF: 12 (DME) pen needle, diabetic [Comfort EZ Pen [place]] 32 gauge x 3/16" needle See Rx Instructions .ROUTE .MEDSUPPLY Qty: 100 RF: 12 ferrous sulfate 325 mg (65 mg iron) tablet 325 mg PO DAILY Qty: 30 RF: 5 ascorbic acid (vitamin C) 500 mg tablet 500 mg PO DAILY Qty: 30 RF: 5 Changed metoprolol succinate [Toprol XL] 100 mg tablet extended release 24 hr 50 mg PO QAM Qty: 0 RF: 0 Discontinued diltiazem HCl [Tiadylt ER] 180 mg capsule,extended release 24 hr 180 mg PO QAM RF: 0 Discharge Orders: Discharge Order (Routine); Ordered 05/27/20 Ordered By: Nicky Wright Admission Data Admit Date/Time: 05/26/20 13:48 Attending Provider: Nicky Wright Admit Provider: Nicky Wright Primary Care Provider: Julita Mittal
--- NOTE | 2020-05-26 16:28 | Anesthesiology Progress Note ---
Date of Service May 26, 2020 Anesthesia Post Procedure Vital Signs Vital Signs: Temp Pulse Resp BP Pulse Ox 05/26/20 16:16 36.8 C 88 18 120/73 100 05/26/20 10:00 36.7 C 103 H 18 128/89 98 Transfer of Care Handoff Completed per policy Notes Mental Status: alert / awake / arousable and participated in evaluation Patient Amnestic to Procedure: Yes Nausea / Vomiting: adequately controlled Pain: adequately controlled Airway Patency, RR, SpO2: stable & adequate BP & HR: stable & adequate Hydration State: stable & adequate Anesthetic Complications: no major complications apparent and Pt Satisfied with anesthetic care
[2020-05-26] MEDS: OXYCODONE/ACETAMINOPHEN 5mg/325mg TAB PO PRN ×2 (16:51→22:52)
[2020-05-26] MEDS ORDERED: PHARMACY GLYCEMIC MGMT CONSULT PRN (16:51)
[2020-05-26] MEDS ORDERED: GLUCOSE 10 TABS/TUBE PO PRN (17:00)
[2020-05-26] MEDS ORDERED: ALBUTEROL HFA 8 GM INHALER INH PRN (17:00)
[2020-05-26] MEDS ORDERED: CARBOHYDRATES FOR HYPOGLYCEMIA PO PRN (17:00)
[2020-05-26] MEDS ORDERED: DEXTROSE 50% 50 ML SYRINGE IV PRN (17:00)
[2020-05-26] MEDS ORDERED: GLUCOSE 40% GEL 15 GM TUBE PO PRN (17:00)
[2020-05-26] MEDS ORDERED: GLUCAGON FOR INJ 1 MG VIAL IM PRN (17:00)
[2020-05-26] MEDS: FUROSEMIDE 80 MG TAB PO SCH (17:13)
[2020-05-26] MEDS ORDERED: MoRPHine SULFATE 2 MG/ML CARP ONE (17:46)
[2020-05-26] MEDS ORDERED: MoRPHine SULFATE 2 MG/ML CARP IV STA (17:59)
[2020-05-26] MEDS: CEFAZOLIN 2000MG 2,000 MG/15 ML SYR IV SCH (20:50)
[2020-05-26] MEDS: INSULIN ASPART 100 UNITS/ML 3 ML PEN SC SCH ×2 (20:52→22:06)
[2020-05-26] MEDS: APIXABAN 5 MG TABLET PO SCH (20:57)
[2020-05-26] MEDS ORDERED: ATORVASTATIN 40 MG TAB PO SCH (21:00)
[2020-05-27] MEDS: CEFAZOLIN 2000MG 2,000 MG/15 ML SYR IV SCH (05:00)
[2020-05-27 07:36] LABS: Creatinine Clr Calc Pharmacy 43.3 ml/min; Est GFR (Non-African American) 35.3
--- NOTE | 2020-05-27 08:09 | Anesthesiology Progress Note ---
Date of Service May 27, 2020 Anesthesia Post Procedure Vital Signs Vital Signs: Temp Pulse Resp BP BP Pulse Ox 05/27/20 07:27 36.8 C 91 H 16 146/76 H 95 05/27/20 04:17 36.9 C 95 H 22 136/78 94 05/26/20 23:21 36.8 C 92 H 20 144/81 H 96 05/26/20 19:33 36.8 C 94 H 18 137/76 94 05/26/20 17:50 91 H 05/26/20 17:44 89 18 144/88 H 90 05/26/20 17:20 36.5 C 92 H 20 128/68 96 05/26/20 16:50 36.4 C L 89 20 128/64 96 05/26/20 16:48 36.4 C L 88 20 115/65 97 05/26/20 16:31 91 H 18 117/83 99 05/26/20 16:16 36.8 C 88 18 120/73 100 05/26/20 10:00 36.7 C 103 H 18 128/89 98 Notes Mental Status: alert / awake / arousable and participated in evaluation Patient Amnestic to Procedure: Yes Nausea / Vomiting: adequately controlled Pain: adequately controlled Airway Patency, RR, SpO2: stable & adequate BP & HR: stable & adequate Hydration State: stable & adequate Anesthetic Complications: no major complications apparent and Pt Satisfied with anesthetic care
[2020-05-27] MEDS ORDERED: FERROUS SULFATE 325 MG TAB PO SCH (09:00)
[2020-05-27] MEDS ORDERED: INSULIN GLARGINE SOLOSTAR 100 UNITS/ML 3 ML PEN SC SCH ×2 (09:00)
[2020-05-27] MEDS ORDERED: PANTOprazole 40 MG TAB PO SCH (09:00)
[2020-05-27] MEDS ORDERED: TAMSULOSIN HCL 0.4 MG CAP PO SCH (09:00)
[2020-05-27] MEDS ORDERED: ASCORBIC ACID 500 MG TAB PO SCH (09:00)
[2020-05-27] MEDS ORDERED: allopurinoL 300 MG TAB PO SCH (09:00)
[2020-05-27] MEDS ORDERED: ASPIRIN 81 MG ECTAB PO SCH (09:00)
[2020-05-27] MEDS: APIXABAN 5 MG TABLET PO SCH (09:02)
[2020-05-27] MEDS: FUROSEMIDE 80 MG TAB PO SCH (09:03)
[2020-05-27] MEDS: INSULIN ASPART 100 UNITS/ML 3 ML PEN SC SCH (09:07)
[2020-05-27] MEDS: OXYCODONE/ACETAMINOPHEN 5mg/325mg TAB PO PRN (09:25)
--- NOTE | 2020-05-27 10:36 | XRay Report ---
XR chest 2V PA/lateral CLINICAL HISTORY: X-ray status post pacemaker placement. COMPARISON STUDY: 05/14/2020 FINDINGS: The heart remains enlarged. There is a left subclavian dual-chamber central venous pacemake r. There is no post procedural pneumothorax. There are trace bilateral pleural effusions. There is no lobar consolidation.[ IMPRESSION: 1. Cardiomegaly and trace bilateral pleural effusions 2. No evidence of pneumothorax status post placement of a left subclavian pacemaker. ACT 112: Negative or not required by law. Electronically signed by: Mario Conley M.D. 05/27/2020 10:34 AM
--- NOTE | 2020-05-28 05:47 | Electrocardiogram Report ---
Test Reason : Blood Pressure : / mmHG Vent. Rate : 108 BPM Atrial Rate : 046 BPM P-R Int : 000 ms QRS Dur : 162 ms QT Int : 416 ms P-R-T Axes : 000 001 143 degrees QTc Int : 557 ms Ventricular-paced rhythm with frequent Premature ventricular complexes Abnormal ECG When compared with ECG of 14-MAY-2020 17:11, Ventricular pacing is now present Confirmed by Vasiliy Aquino ([id number]) on 05/28/2020 5:46:46 AM Referred By: Nicky Wright Confirmed By:Vasiliy Aquino
--- NOTE | 2020-06-03 05:08 | Operative Report (OR) ---
DATE OF OPERATION: 05/26/2020 PREOPERATIVE DIAGNOSIS: Persistent atypical atrial flutter despite high-dose AV latisha blockers. POSTOPERATIVE DIAGNOSES: Persistent atypical atrial flutter despite high-dose AV latisha blockers plus complete heart block. PROCEDURE: A biventricular (left bundle) rate responsive permanent pacemaker under fluoroscopic guidance along with a peripheral venogram and coronary sinus venogram and intracardiac electrogram mapping of the His bundle region followed then by an AV latisha ablation. SURGEON: Nicky Wright DO ASSISTANTS: None. ANESTHESIA: Monitored anesthetic care was given via Anesthesiology. Please defer to their notes for complete details, but in review the start time was 1110 hours and the end time was 1558 hours. Total of 8 mg of Versed, 200 mcg of fentanyl, 800 mg of propofol, 25 mg of ketamine. INTRAVENOUS FLUIDS: 800 mL ANTIBIOTICS: Two grams of Ancef. CONTRAST: 35 mL. BLOOD LOSS: 50 mL. INDICATIONS: This is a 74-year-old gentleman with a past medical history for coronary artery disease with a history of bare-metal stent x2 to the RCA in 1993 and 2000, hypertension, hyperlipidemia, COPD and emphysema, as well as obstructive sleep apnea, permanent atrial fibrillation and atypical flutter since at least May 2019, on extremely high doses of metoprolol and diltiazem as well as Eliquis with a CHADS2-VASc score of 3, pernicious anemia, MGUS, history of prostate cancer and vitamin B deficiency. Due to his permanent atrial fibrillation with rapid ventricular rate despite extremely high AV latisha blockers, the patient was recommended a biventricular pacemaker followed by an AV latisha ablation. CONSENT: Consent was obtained prior to the patient going into the electrophysiology lab. The patient was informed of the risks, benefits and alternative to procedure. Risks include but not limited to sudden cardiac , cardiac arrhythmia, cerebrovascular accident, myocardial infarction, injury to the blood vessels, chamber of the heart, lung, bleeding, and infection. The patient understood these risks and agreed with the procedure as planned. Informed consent was obtained. DESCRIPTION OF THE PROCEDURE: The patient was brought into electrophysiology lab in a fasting state and was connected to continuous cardiac monitoring. Timeout was performed to ensure patient identity and procedure correctly. The patient was prepped and draped over the left infraclavicular space in normal surgical standard fashion. . Monitored anesthetic care was given throughout the procedure for patient's comfort level via anesthesiology. Haworth precautions were maintained throughout the procedure. A 10 mL of 1% lidocaine and bupivacaine mixture were given in the left deltopectoral groove. An incision was made in the left deltopectoral groove. Blunt dissection was performed down to identify the cephalic vein. Cephalic vein was identified and isolated using 0 silk ties. The vein was nicked with an 11 blade and a guidewire was inserted without any resistance. An 8-Luxembourger SafeSheath was then advanced over the guidewire without any resistance. Dilator was removed and a second guidewire was inserted through the sheath to allow for retained venous access. Then the sheath was removed, flushed, dilator reinserted over it, and it was reinserted along the guidewire. The guidewire and dilator were removed. Then the right ventricular pacing lead was advanced into right ventricle and positioned in the right ventricular apex under fluoroscopic guidance. There was adequate pacing and sensing thresholds and no diaphragmatic stimulation with high output pacing. The 8-Luxembourger sheath was peeled away and the lead was fixated to pectoralis muscle using 0 silk suture. A 9.5-Luxembourger sheath was then advanced over the retained guidewire without any resistance. This was an OptiSeal sheath. Then the guidewire and dilator were removed. Then, an MPX outer sheath was advanced over a Glidewire into the right atrium. The dilator and Glidewire were removed. Then the Decapolar Biosense coronary sinus diagnostic catheter was advanced and the coronary sinus was cannulated. I somehow luckily got the diagnostic EP catheter into the coronary sinus and I was able to advance the sheath over it. This was actually I think more just luck because in retrospect I think there was a valve that was inhibiting me. I then was able to do a venogram of the coronary sinus and I did see a potential branch. Unfortunately, when I was pulling out the balloon, the coronary sinus sheath came out as well and I was never really able to reposition or get back into the coronary sinus. There was one time where I was able to, but I had changed sheaths and I was not able to get in. I tried for a very long time to get into the coronary sinus even using an extended 5-Luxembourger Merit tiny catheter, a Cordis AL1, even using a Quick-Cross wire, but I was never able to get a sheath out past the valve. I then after a very long time of trying opted to do a left bundle lead instead of my coronary sinus lead. I ended up boycotting the additional access to the cephalic vein and I did a peripheral venogram to identify the axillary vein. I stuck the axillary vein and then placed an 9-Luxembourger sheath over that guidewire. The guidewire and dilator were removed. Then the deflectable His sheath was advanced into the right atrium over a Glidewire. The Glidewire and dilator were removed and then intracardiac His bundle mapping with the pacing lead was performed. I localized where the His was and I found my HV to be 56 milliseconds. Again, there was no AH because the patient was in AF. I marked where this was on my fluoroscopy monitors in SMITH 30. Then I kind of randal an imaginary line to the apex and about 2 cm down on that line from the His bundle is where I placed another dot on my fluoroscopy monitors to kind of give me an idea of where I wanted my left bundle lead to aim for. I then swapped out this deflectable sheath back for the His preformed J sheath and then continued with intracardiac mapping. I did struggle a little bit to make sure the sheath was up against the septum since his right atrium was very big, but I had somewhat decent signal in V1 and I gave a series of clockwise turns to start screwing the lead in pausing every so often to monitor how my electrograms changed in lead V1 as well as my pacing stem to peak in V5 and V6 as well as my impedance drops. I would say that it is more of a septal lead based on what my EKG looks like, but it was a very good functional lead that was accepting. When I gave a puff of contrast through the sheath, I had a good portion of the lead in the septum. I then slid the sheath under fluoroscopic guidance and then I slid the 9-Luxembourger OptiSeal sheath and then secured the lead to the pectoralis muscle suturing it down with 0 silk suture. A pacemaker pocket was created using blunt dissection over the pectoralis muscle within the pectoral fascia. I did put a pursestring around the venous puncture site to stop some backbleeding. The pocket was then flushed with copious amounts of bacitracin saline wash and inspected for hemostasis. The pulse generator was then attached to the leads making sure the pins were in appropriate position, passed set screws and set screws were all tightened. Pulse generator was then placed in an antibiotic pouch followed then by being placed in the pocket. The incision was then closed in 3-layer fashion with 2-0 Vicryl suture followed by 3-0 Vicryl suture followed by 4-0 Monocryl running stitch and Dermabond was applied. The patient was then undraped and redraped over the bilateral groins to perform the AV latisha ablation. A 10 mL of 1% lidocaine were given in the right femoral groin. Then using the modified Seldinger technique, venous access was obtained and an 8-Luxembourger sheath was inserted over the guidewire without any resistance. The guidewire and dilator were removed. Then the 8 mm FJ curved non-irrigated ablation catheter was advanced. I once again localized where the His was with the HV being 56. I then gave a series of sewell going up to 70 álvarez because I was not getting very good temperatures because again I think I could only get so far against the septum, but I did eventually get a heart block where he started pacing in the 30s. After I gave about 3 ablations about a minute in duration, I removed the ablation catheter from the body and then during our waiting period, we then rechecked after 20 minutes to ensure that he still had no underlying rhythm and this was confirmed. The sheath was then pulled and manual compression was used to establish hemostasis. EQUIPMENT: 1. Pulse generator is a Medtronic Christin CRTP MRI SureScan, [id number], serial number [id number]. 2. The right atrial pin port was lot number [id number]. 3. The right ventricular lead was a Medtronic 5076-58 cm, serial number [id number]. 4. The left bundle lead was a Medtronic 3830-69 cm, serial number [id number]. 5. Tyrx pouch with reference [id number], lot number [id number], expiration 03/03/2021. INTRAOPERATIVE TESTIN. Like I had said the HV was 56 milliseconds. The right ventricular R waves were 7.2 millivolts, impedance 494 ohms, threshold 1 volt at 0.5 milliseconds. 2. The left bundle was 9.1 millivolts, impedance 760 ohms, threshold 1 volt at 0.4 milliseconds. FINAL MEASUREMENTS THROUGH THE DEVICE: 1. Right ventricular lead: There was an escape with an R-wave at 6.8 millivolts, impedance 475 ohms, threshold 1 volt at 0.4 milliseconds. 2. The left bundle lead was impedance 665 ohms, threshold 0.75 volts at 0.4 milliseconds. IMPRESSION: Successful biventricular (left bundle) rate responsive permanent pacemaker along with a peripheral and coronary sinus venogram as well as intracardiac electrogram mapping of the His bundle region as well as AV latisha ablation under fluoroscopic guidance, all secondary to permanent atrial fibrillation with rapid ventricular response despite high-dose AV latisha blockers. PLAN: Monitor patient overnight, 12-lead ECG, chest x-ray. He is not allowed to lift the left elbow over the left shoulder for 1 month. He cannot lift more than 10 pounds with the left arm for 2 weeks. He is to keep the dressing on and dry until his wound check next week. We will decrease his AV latisha blockers significantly and I will see him in 1 month's time. I attest to the content of the Intraoperative Record and any orders documented therein. Any exceptions are noted below. MTDD
== END 2020-05-27 11:40 | disposition home or self-care (01) ==
LOC: 2S 09:55 → EP 09:55
DX: D47.2 Monoclonal gammopathy; Z79.899 Other long term (current) drug therapy; E78.5 Hyperlipidemia, unspecified; E11.22 Type 2 diabetes mellitus with diabetic chronic kidney disease; N18.4 Chronic kidney disease, stage 4 (severe); J44.9 Chronic obstructive pulmonary disease, unspecified; K21.9 Gastro-esophageal reflux disease without esophagitis; I44.2 Atrioventricular block, complete; I48.92 Unspecified atrial flutter; Z95.5 Presence of coronary angioplasty implant and graft; Z88.8 Allergy status to other drugs, medicaments and biological substances; Z79.01 Long term (current) use of anticoagulants; Z98.61 Coronary angioplasty status; I25.10 Atherosclerotic heart disease of native coronary artery without angina pectoris; I48.21 Permanent atrial fibrillation; G47.33 Obstructive sleep apnea (adult) (pediatric); Z79.4 Long term (current) use of insulin; I50.30 Unspecified diastolic (congestive) heart failure; Z79.82 Long term (current) use of aspirin; I13.0 Hypertensive heart and chronic kidney disease with heart failure and stage 1 through stage 4 chronic kidney disease, or unspecified chronic kidney disease; Z87.891 Personal history of nicotine dependence